=== PATIENT | female | born 1945 | race Caucasian/White ===

== ENCOUNTER 2018-12-02 16:47 | Inpatient (IN) | payer MEDICARE ==
[~2018-12-02] VITALS: Ht 160 cm; Wt 67.3 kg
[2018-12-02 17:26] LABS: BASO # 0.1 x10^3/uL (0.0-0.2); BASO % 1 % (0-3); EOS # 0.4 x10^3/uL (0.0-0.7); EOS % 4 % (0-3); HEMATOCRIT 39.4 % (36.0-47.0); HEMOGLOBIN 12.9 g/dL (12.0-15.5); LYMPH # 1.1 x10^3/uL (1.0-4.8); LYMPH % 11 % (24-48); MEAN CORPUSCULAR HEMOGLOBIN 29 pg (25-35); MEAN CORPUSCULAR HGB CONC 33 g/dL (31-37); MEAN CORPUSCULAR VOLUME 89 fL (79-100); MONO # 0.4 x10^3/uL (0.0-1.1); MONO % 4 % (0-9); NEUT # 8.4 x10^3uL (1.8-7.7); NEUT % 81 % (31-73); PLATELET COUNT 147 x10^3/uL (140-400); RED BLOOD COUNT 4.44 x10^6/uL (3.50-5.40); RED CELL DISTRIBUTION WIDTH 15.7 % (11.5-14.5); WHITE BLOOD COUNT 10.4 x10^3/uL (4.0-11.0)
[2018-12-02] MEDS ORDERED: DEXAMETHASONE SOD PHOS 4 MG/ML VIAL IV ONE (17:30)
[2018-12-02] MEDS ORDERED: ASPIRIN 325 MG TABLET PO ONE (17:30)
[2018-12-02] MEDS ORDERED: IPRATRPIUM/ALBUTEROL 0.5/2.5MG 3 ML NEBU. NEB ONE (17:30)
[2018-12-02 17:40] LABS: CALCIUM 9.6 mg/dL (8.5-10.1); GFR 24.4; POTASSIUM 5.4 mmol/L (3.5-5.1)
--- NOTE | 2018-12-02 17:40 | PHYS DOC ---
Past Medical History Past Medical History: CHF, Hypertension, Other Additional Past Medical Histor: SARCOIDOSIS Past Surgical History: Tonsillectomy, Tubal ligation, Other Additional Past Surgical Histo: KNEE,HAND Additional Information: Nonsmoker Alcohol Use: None Drug Use: None Adult General Chief Complaint Chief Complaint: SHORTNESS OF BREATH HPI HPI 72-year-old female resents via EMS report of progressive shortness of breath which started today. Patient reports she wears home oxygen at approximately 3 L per nasal cannula. Patient reports significant amount of dyspnea which caused her to call EMS. Denies fever or chills. Denies leg swelling or calf tenderness. Denies known trauma. Patient does have history of CHF, high blood pressure, and sarcoidosis. Denies any chest pain. Review of Systems Review of Systems Constitutional: Denies fever or chills [] Eyes: Denies change in visual acuity, redness, or eye pain [] HENT: Reports nasal congestion and sore throat [] Respiratory: Reports cough and shortness of breath [] Cardiovascular: Denies chest pain or palpitations GI: Denies abdominal pain, nausea, vomiting, or diarrhea [] : Denies dysuria or hematuria [] Musculoskeletal: Denies back pain or leg swelling Integument: Denies rash or skin lesions [] Neurologic: Denies headache, focal weakness or sensory changes [] Complete systems were reviewed and found to be within normal limits, except as documented in this note. Current Medications Current Medications Current Medications Medications (Trade) Dose Ordered Sig/Daphney Start Time Stop Time Status Last Admin Dose Admin Albuterol/ Ipratropium (Duoneb) 3 ml 1X ONCE 12/02/18 17:30 12/02/18 17:31 DC 12/02/18 17:20 3 ML Aspirin (Silvia Aspirin) 325 mg 1X ONCE 12/02/18 17:30 12/02/18 17:31 DC 12/02/18 17:48 325 MG Dexamethasone Sodium Phosphate (Decadron) 10 mg 1X ONCE 12/02/18 17:30 12/02/18 17:31 DC 12/02/18 17:48 10 MG Allergies Allergies Physical Exam Physical Exam Constitutional: Well developed, well nourished, no acute distress, non-toxic appearance. [] HENT: Normocephalic, atraumatic, bilateral TMs normal, oropharynx moist, nose normal. [] Eyes: Conjunctiva normal, no discharge. [] Neck: Normal range of motion, no tenderness, supple, no meningeal signs[] Cardiovascular: Heart rate regular rhythm, no murmur [] Lungs & Thorax: Bilateral breath sounds clear to auscultation [] Abdomen: Soft, no tenderness Skin: Warm, dry, no erythema, no rash. Extremities: No tenderness, ROM intact, no edema. [] Neurologic: Alert and oriented X 3, normal motor function, normal sensory function, no focal deficits noted. [] Psychologic: Affect normal, judgement normal, mood normal. [] Current Patient Data Vital Signs Vital Signs Date Time Temp Pulse Resp B/P (MAP) Pulse Ox O2 Delivery O2 Flow Rate FiO2 12/02/18 17:27 78 132/71 (91) 100 Nasal Cannula 8.0 12/02/18 16:47 97.4 24 97.4 Lab Values Laboratory Tests Test 12/02/18 17:10 12/02/18 17:12 White Blood Count 10.4 x10^3/uL (4.0-11.0) Red Blood Count 4.44 x10^6/uL (3.50-5.40) Hemoglobin 12.9 g/dL (12.0-15.5) Hematocrit 39.4 % (36.0-47.0) Mean Corpuscular Volume 89 fL (79-100) Mean Corpuscular Hemoglobin 29 pg (25-35) Mean Corpuscular Hemoglobin Concent 33 g/dL (31-37) Red Cell Distribution Width 15.7 % (11.5-14.5) H Platelet Count 147 x10^3/uL (140-400) Neutrophils (%) (Auto) 81 % (31-73) H Lymphocytes (%) (Auto) 11 % (24-48) L Monocytes (%) (Auto) 4 % (0-9) Eosinophils (%) (Auto) 4 % (0-3) H Basophils (%) (Auto) 1 % (0-3) Neutrophils # (Auto) 8.4 x10^3uL (1.8-7.7) H Lymphocytes # (Auto) 1.1 x10^3/uL (1.0-4.8) Monocytes # (Auto) 0.4 x10^3/uL (0.0-1.1) Eosinophils # (Auto) 0.4 x10^3/uL (0.0-0.7) Basophils # (Auto) 0.1 x10^3/uL (0.0-0.2) D-Dimer (Emilia) 4.24 ug/mlFEU (0.00-0.50) H Sodium Level 131 mmol/L (136-145) L Potassium Level 5.4 mmol/L (3.5-5.1) H Chloride Level 94 mmol/L (98-107) L Carbon Dioxide Level 24 mmol/L (21-32) Anion Gap 13 (6-14) Blood Urea Nitrogen 42 mg/dL (7-20) H Creatinine 2.0 mg/dL (0.6-1.0) H Estimated GFR (Cockcroft-Gault) 24.4 BUN/Creatinine Ratio 21 (6-20) H Glucose Level 176 mg/dL (70-99) H Calcium Level 9.6 mg/dL (8.5-10.1) Magnesium Level 2.4 mg/dL (1.8-2.4) Total Bilirubin 1.0 mg/dL (0.2-1.0) Aspartate Amino Transferase (AST) 30 U/L (15-37) Alanine Aminotransferase (ALT) 21 U/L (14-59) Alkaline Phosphatase 95 U/L (46-116) Creatine Kinase 35 U/L (26-192) Creatine Kinase MB (Mass) 1.2 ng/mL (0.0-3.6) Creatine Kinase MB Relative Index % (0-4) Troponin I Quantitative < 0.017 ng/mL (0.000-0.055) RJ-Ezi-[id number]-Type Natriuretic Peptide 56314 pg/mL (0-124) H Total Protein 8.3 g/dL (6.4-8.2) H Albumin 3.5 g/dL (3.4-5.0) Albumin/Globulin Ratio 0.7 (1.0-1.7) L Urine Collection Type Unknown Urine Color Yellow Urine Clarity Clear Urine pH 7.0 Urine Specific [place] 1.010 Urine Protein Negative mg/dL (NEG-TRACE) Urine Glucose (UA) Negative mg/dL (NEG) Urine Ketones (Stick) Negative mg/dL (NEG) Urine Blood Negative (NEG) Urine Nitrite Negative (NEG) Urine Bilirubin Negative (NEG) Urine Urobilinogen Dipstick 0.2 mg/dL (0.2 mg/dL) Urine Leukocyte Esterase Trace (NEG) Urine RBC Occ /HPF (0-2) Urine WBC 1-4 /HPF (0-4) Urine Squamous Epithelial Cells Few /LPF Urine Transitional Epithelial Cells Occ /LPF Urine Bacteria Few /HPF (0-FEW) Urine Hyaline Casts Occasional /HPF Urine Mucus Slight /LPF Laboratory Tests 12/02/18 17:10 Laboratory Tests 12/02/18 17:10 EKG EKG @ 1659 NSR at 85bpm, NO ST elevation, RBBB, t wave inversions II,III,aVF, V1-V6, No prior EKG per [facility] for comparison. Radiology/Procedures Radiology/Procedures PROCEDURE: CHEST AP ONLY CHEST AP ONLY Clinical Indication: Dyspnea, elevated BNP Comparison: 01/30/2015 CT chest without contrast. Findings: Portable upright frontal view chest was obtained. Cardiomegaly is present.. Diffuse interstitial thickening of the lung johnson noted. Left lateral basilar consolidation is present. No significant pleural effusions. There is no pneumothorax. Osteopenia noted. No acute bone abnormality. IMPRESSION: Diffuse interstitial thickening throughout the lung johnson. This is somewhat more evident as compared to previous CT exam. Left lateral basilar consolidation. Correlate with prior exams. Interval follow-up two-view chest x-ray exam to assess resolution recommended. Electronically signed by: Dev Ponce MD (12/03/2018 8:45 AM) [facility] Course & Med Decision Making Course & Med Decision Making Pertinent Labs and Imaging studies reviewed. (See chart for details) Patient presents with report of shortness of breath times one day. Patient noted on arrival to emergency department to be at 69%. Supplemental O2 required above patient's normal requirement. DuoNeb provided. Labs obtained and posted to chart. Initial troponin within normal limits. BNP significant elevated. Bumex provided. D-dimer elevated. Chest x-ray with findings of possible opacity versus fluid overload. Lung scan ordered and pending. We will hold empiric blood thinners at this time. Aspirin provided. Patient requiring admission for further evaluation and treatment. Discussed with Dr. Glover (hospitalist) who is in agreement with admission. Discussed findings and plan with patient, who acknowledges understanding and agreement. Dragon Disclaimer Dragon Disclaimer This electronic medical record was generated, in whole or in part, using a voice recognition dictation system. Departure Departure Impression: Primary Impression: Dyspnea Additional Impressions: Hypoxia Elevated d-dimer Disposition: ADMITTED INPATIENT Admitting Physician: Lety Glover Condition: GUARDED Scripts Furosemide (LASIX) 80 Mg Tablet 1 TAB PO DAILY for CHF, #10 TAB Prov: SAM JUAN MD 12/03/18 Critical Care Time Critical care time was 30 minutes which includes time at bedside, spent in discussion of patient's care with specialists and/or family members, with interpretation of laboratory and/or radiological studies and is exclusive of procedures. Problem Qualifiers Primary Impression: Dyspnea Dyspnea type: unspecified Qualified Codes: R06.00 - Dyspnea, unspecified MC BOGGS DO December 02, 2018 17:40
[2018-12-02] MEDS ORDERED: ONDANSETRON PF 4 MG/2 ML VIAL. IV PRN (17:45)
[2018-12-02 17:47] LABS: ALBUMIN 3.5 g/dL (3.4-5.0); ALBUMIN/GLOBULIN RATIO 0.7 (1.0-1.7); MAGNESIUM 2.4 mg/dL (1.8-2.4); TOTAL PROTEIN 8.3 g/dL (6.4-8.2)
[2018-12-02 17:54] LABS: CREATINE KINASE 35 U/L (26-192)
--- NOTE | 2018-12-02 18:07 | PDOC1 ---
History and Physical Date of Admission: Date of Admission DATE: 12/02/18 TIME: 18:04 Chief Complaint: Problems: (1) Dyspnea (2) Hypoxia Chief Complain: Shortness of air History of Present Illness: HPI: Patient is a elderly female who presented with shortness of breath and some vague chest discomfort While in the ER she's noted to have an elevated d-dimer Imaging is pending but we were concerned she could've had a PE She rates her symptoms at 10 out 10 She has associated anxiety It's been coming off and on for couple of days She tried taking some home meds but that didn't seem to work Describes her symptoms as irritating I discussed the case with ER physician were going to admit the patient and consult cardiology and pulmonary and nephrology She we noted the patient's d-dimer is high and she has hyponatremia and hyperkalemia and chronic renal failure with elevated BUN/creatinine Past Medical/Surgical History: PMH/PSH: Past Medical History: CHF, Hypertension, Other Additional Past Medical Histor: SARCOIDOSIS Past Surgical History: Tonsillectomy, Tubal ligation, Other Additional Past Surgical Histo: KNEE,HAND Allergies: Allergies: Coded Allergies: Penicillins (Verified Allergy, Unknown, 12/02/18) allopurinol (Verified Allergy, Unknown, 12/02/18) cephalexin (Verified Allergy, Unknown, 12/02/18) Family History: Family History: Coronary disease Social History: Social Hisoty: She doesn't drink smoke or take drugs Current Medications: Current Medications Current Medications Albuterol/ Ipratropium (Duoneb) 3 ml 1X ONCE NEB Last administered on 12/02/18at 17:20; Start 12/02/18 at 17:30; Stop 12/02/18 at 17:31; Status DC Aspirin (Silvia Aspirin) 325 mg 1X ONCE PO Last administered on 12/02/18at 17:48; Start 12/02/18 at 17:30; Stop 12/02/18 at 17:31; Status DC Dexamethasone Sodium Phosphate (Decadron) 10 mg 1X ONCE IV Last administered on 12/02/18at 17:48; Start 12/02/18 at 17:30; Stop 12/02/18 at 17:31; Status DC Ondansetron HCl (Zofran) 4 mg PRN Q8HRS PRN IV NAUSEA/VOMITING; Start 12/02/18 at 17:45; Stop 12/03/18 at 17:44 Albuterol/ Ipratropium (Duoneb) 3 ml RTQID NEB ; Start 12/02/18 at 20:00; Stop 12/03/18 at 19:59 ROS: Review of Systems Review of System REVIEW OF SYSTEMS: GENERAL: Denies weakness SKIN: No bruising, hair changes or rashes. EYES: No blurred, double or loss of vision. NOSE AND THROAT: No history of nosebleeds, hoarseness or sore throat. HEART: No history of palpitations, chest pain or shortness of breath on exertion. LUNGS: She complains of shortness of breath GASTROINTESTINAL: Denies changes in appetite, nausea, vomiting, diarrhea or constipation. GENITOURINARY: No history of frequency, urgency, hesitancy or nocturia. NEUROLOGIC: Denies history of numbness, tingling, tremor or weakness. PSYCHIATRIC: No history of panic, anxiety or depression. ENDOCRINE: No history of heat or cold intolerance, polyuria or polydipsia. EXTREMITIES: Denies muscle weakness, joint pain, pain on walking or stiffness. Physical Exam: Vital Signs: Vital Signs Date Time Temp Pulse Resp B/P (MAP) Pulse Ox O2 Delivery O2 Flow Rate FiO2 12/02/18 17:22 99 Nasal Cannula 9.0 12/02/18 16:47 97.4 89 24 109/72 (84) 97.4 Physcial Exam: GEN.: No apparent distress. Alert and oriented. HEENT: Head is normocephalic, atraumatic NECK: Supple, no JVD LUNGS: Clear to auscultation without rhonchi or wheezing HEART: RRR, S1, S2 present. Peripheral pulses intact ABDOMEN: Soft, nontender. Positive bowel sounds no organomegaly EXTREMITIES: Without any cyanosis, clubbing, or edema. Pedal pulses intact NEUROLOGIC: Normal speech, normal tone. A&O x 3 PSYCHIATRIC: Normal affect, normal mood. Stable SKIN: No ulcerations or rashes VASCULAR: Good capillary refill Labs: Labs: Laboratory Tests Test 12/02/18 17:10 White Blood Count 10.4 x10^3/uL (4.0-11.0) Red Blood Count 4.44 x10^6/uL (3.50-5.40) Hemoglobin 12.9 g/dL (12.0-15.5) Hematocrit 39.4 % (36.0-47.0) Mean Corpuscular Volume 89 fL (79-100) Mean Corpuscular Hemoglobin 29 pg (25-35) Mean Corpuscular Hemoglobin Concent 33 g/dL (31-37) Red Cell Distribution Width 15.7 % (11.5-14.5) Platelet Count 147 x10^3/uL (140-400) Neutrophils (%) (Auto) 81 % (31-73) Lymphocytes (%) (Auto) 11 % (24-48) Monocytes (%) (Auto) 4 % (0-9) Eosinophils (%) (Auto) 4 % (0-3) Basophils (%) (Auto) 1 % (0-3) Neutrophils # (Auto) 8.4 x10^3uL (1.8-7.7) Lymphocytes # (Auto) 1.1 x10^3/uL (1.0-4.8) Monocytes # (Auto) 0.4 x10^3/uL (0.0-1.1) Eosinophils # (Auto) 0.4 x10^3/uL (0.0-0.7) Basophils # (Auto) 0.1 x10^3/uL (0.0-0.2) D-Dimer (Emilia) 4.24 ug/mlFEU (0.00-0.50) Sodium Level 131 mmol/L (136-145) Potassium Level 5.4 mmol/L (3.5-5.1) Chloride Level 94 mmol/L (98-107) Carbon Dioxide Level 24 mmol/L (21-32) Anion Gap 13 (6-14) Blood Urea Nitrogen 42 mg/dL (7-20) Creatinine 2.0 mg/dL (0.6-1.0) Estimated GFR (Cockcroft-Gault) 24.4 BUN/Creatinine Ratio 21 (6-20) Glucose Level 176 mg/dL (70-99) Calcium Level 9.6 mg/dL (8.5-10.1) Magnesium Level 2.4 mg/dL (1.8-2.4) Total Bilirubin 1.0 mg/dL (0.2-1.0) Aspartate Amino Transf (AST/SGOT) 30 U/L (15-37) Alanine Aminotransferase (ALT/SGPT) 21 U/L (14-59) Alkaline Phosphatase 95 U/L (46-116) Creatine Kinase 35 U/L (26-192) Creatine Kinase MB (Mass) 1.2 ng/mL (0.0-3.6) Creatine Kinase MB Relative Index % (0-4) Troponin I Quantitative < 0.017 ng/mL (0.000-0.055) [id number]-Type Natriuretic Peptide 25171 pg/mL (0-124) Total Protein 8.3 g/dL (6.4-8.2) Albumin 3.5 g/dL (3.4-5.0) Albumin/Globulin Ratio 0.7 (1.0-1.7) Laboratory Tests Test 12/02/18 17:10 White Blood Count 10.4 x10^3/uL (4.0-11.0) Red Blood Count 4.44 x10^6/uL (3.50-5.40) Hemoglobin 12.9 g/dL (12.0-15.5) Hematocrit 39.4 % (36.0-47.0) Mean Corpuscular Volume 89 fL (79-100) Mean Corpuscular Hemoglobin 29 pg (25-35) Mean Corpuscular Hemoglobin Concent 33 g/dL (31-37) Red Cell Distribution Width 15.7 % (11.5-14.5) Platelet Count 147 x10^3/uL (140-400) Neutrophils (%) (Auto) 81 % (31-73) Lymphocytes (%) (Auto) 11 % (24-48) Monocytes (%) (Auto) 4 % (0-9) Eosinophils (%) (Auto) 4 % (0-3) Basophils (%) (Auto) 1 % (0-3) Neutrophils # (Auto) 8.4 x10^3uL (1.8-7.7) Lymphocytes # (Auto) 1.1 x10^3/uL (1.0-4.8) Monocytes # (Auto) 0.4 x10^3/uL (0.0-1.1) Eosinophils # (Auto) 0.4 x10^3/uL (0.0-0.7) Basophils # (Auto) 0.1 x10^3/uL (0.0-0.2) D-Dimer (Emilia) 4.24 ug/mlFEU (0.00-0.50) Sodium Level 131 mmol/L (136-145) Potassium Level 5.4 mmol/L (3.5-5.1) Chloride Level 94 mmol/L (98-107) Carbon Dioxide Level 24 mmol/L (21-32) Anion Gap 13 (6-14) Blood Urea Nitrogen 42 mg/dL (7-20) Creatinine 2.0 mg/dL (0.6-1.0) Estimated GFR (Cockcroft-Gault) 24.4 BUN/Creatinine Ratio 21 (6-20) Glucose Level 176 mg/dL (70-99) Calcium Level 9.6 mg/dL (8.5-10.1) Magnesium Level 2.4 mg/dL (1.8-2.4) Total Bilirubin 1.0 mg/dL (0.2-1.0) Aspartate Amino Transf (AST/SGOT) 30 U/L (15-37) Alanine Aminotransferase (ALT/SGPT) 21 U/L (14-59) Alkaline Phosphatase 95 U/L (46-116) Creatine Kinase 35 U/L (26-192) Creatine Kinase MB (Mass) 1.2 ng/mL (0.0-3.6) Creatine Kinase MB Relative Index % (0-4) Troponin I Quantitative < 0.017 ng/mL (0.000-0.055) [id number]-[id number]-Type Natriuretic Peptide 51789 pg/mL (0-124) Total Protein 8.3 g/dL (6.4-8.2) Albumin 3.5 g/dL (3.4-5.0) Albumin/Globulin Ratio 0.7 (1.0-1.7) Images: Images Imaging is pending Assessment/Plan Assessment/Plan Shortness of breath hypoxia chest discomfort elevated d-dimer hyponatremia and hyperkalemia acute on chronic renal failure Plan Cardiac monitoring Chest imaging to rule out PE Consult pulmonary Consult cardiology Serial enzymes Serial EKGs O2 per nasal cannula DVT prophylaxis Home meds if possible Full code Prognosis guarded Total time 32 minutes RADHA JOHN III DO December 02, 2018 18:07
[2018-12-02] MEDS ORDERED: BUMETANIDE 1 MG/4 ML VIAL. IV ONE (18:15)
[2018-12-02 19:10] VITALS: BP 141/82
[2018-12-02] MEDS ORDERED: IPRATRPIUM/ALBUTEROL 0.5/2.5MG 3 ML NEBU. NEB SCH (20:00)
[2018-12-02] MEDS ORDERED: ACETAMINOPHEN 325 MG TABLET. PO PRN (20:00)
[2018-12-02] MEDS ORDERED: FLUO20CA8 PO (20:25)
[2018-12-02] MEDS ORDERED: QUET25TA PO (20:25)
[2018-12-02] MEDS ORDERED: FURO40TA4 PO (20:25)
[2018-12-02] MEDS ORDERED: CARV12.53 PO (20:25)
[2018-12-02] MEDS ORDERED: SPIR25TA5 PO (20:25)
[2018-12-02] MEDS ORDERED: ATOR40TA59 PO (20:25)
[2018-12-02] MEDS ORDERED: CELE-20 PO (20:25)
[2018-12-02] MEDS ORDERED: MUPIROCIN 2 % TOPICAL CREAM 30GM TUBE. TP SCH (21:00)
[2018-12-02] MEDS ORDERED: SMZ/TMP 800/160MG TABLET. PO SCH ×2 (21:00)
[2018-12-02] MEDS: NYSTATIN TOPICAL POWDER 15GM BOTTLE. TP SCH (21:36)
--- NOTE | 2018-12-02 21:49 | RAD ---
Ventilation/perfusion lung scan HISTORY: Dyspnea, elevated d-dimer. COMPARISON: Chest x-ray December 02, 2018. TECHNIQUE: 5.5 mCi technetium 99m macroaggregated albumin intravenous. 27 mCi xenon-133 inhaled. FINDINGS: The oblique and the lateral images demonstrate numerous perfusion defects bilaterally involving the upper and lower lobes, right middle lobe and lingula, unfortunately these defects are not well delineated on the anterior or posterior projections, and only anterior and posterior ventilatory imaging was acquired. Thus it is uncertain if these perfusion defects are matched or mismatched with ventilation. The patient has extensive reticulonodular infiltrates or pulmonary fibrosis throughout the lungs on recent chest x-ray which could correspond to many of these perfusion defects, which at a minimum makes this exam intermediate probability for pulmonary artery emboli using the modified PIOPED criteria. IMPRESSION: Numerous perfusion defects, with uncertain correlate on ventilatory imaging, considered at a minimum intermediate probability for pulmonary artery emboli. See discussion above. Electronically signed by: Wallace Keller MD (12/02/2018 9:47 PM) [facility]
[2018-12-02 23:39] VITALS: BP 103/62
[2018-12-03] MEDS: IPRATRPIUM/ALBUTEROL 0.5/2.5MG 3 ML NEBU. NEB SCH ×5 (01:30→19:08)
[2018-12-03 01:31] LABS: BILIRUBIN,URINE NEGATIVE (NEG); CLARITY,URINE CLEAR; COLOR,URINE YELLOW; NITRITE,URINE NEGATIVE (NEG); PROTEIN,URINE NEGATIVE (NEG-TRACE); UROBILINOGEN,URINE 0.2 mg/dL (0.2 mg/dL)
[2018-12-03 02:28] LABS: BACTERIA,URINE FEW /HPF (0-FEW); HYALINE CASTS, URINE OCCASIONAL /HPF; RBC,URINE OCC /HPF (0-2); SQUAMOUS EPITHELIAL CELL,UR FEW /LPF
[2018-12-03 03:44] VITALS: BP 123/64
--- NOTE | 2018-12-03 06:26 | EKG ---
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
[2018-12-03 07:00] VITALS: BP 140/77
[2018-12-03] MEDS ORDERED: ASPIRIN CHEWABLE 81 MG TABLET. PO SCH (08:00)
[2018-12-03] MEDS: NYSTATIN TOPICAL POWDER 15GM BOTTLE. TP SCH ×2 (08:48→13:50)
[2018-12-03] MEDS: MUPIROCIN 2 % TOPICAL CREAM 30GM TUBE. TP SCH ×2 (08:48→13:50)
--- NOTE | 2018-12-03 08:48 | RAD ---
CHEST AP ONLY Clinical Indication: Dyspnea, elevated BNP Comparison: 01/30/2015 CT chest without contrast. Findings: Portable upright frontal view chest was obtained. Cardiomegaly is present.. Diffuse interstitial thickening of the lung johnson noted. Left lateral basilar consolidation is present. No significant pleural effusions. There is no pneumothorax. Osteopenia noted. No acute bone abnormality. IMPRESSION: Diffuse interstitial thickening throughout the lung johnson. This is somewhat more evident as compared to previous CT exam. Left lateral basilar consolidation. Correlate with prior exams. Interval follow-up two-view chest x-ray exam to assess resolution recommended. Electronically signed by: Dev Ponce MD (12/03/2018 8:45 AM) [facility]
--- NOTE | 2018-12-03 09:08 | PDOC2 ---
CARDIAC CONSULT DATE OF CONSULT Date of Consult DATE: 12/03/18 TIME: 09:02 REASON FOR CONSULT Reason for Consult: CHF Management REFERRING PHYSICIAN Referring Physician: Dr. Glover SOURCE Source: Chart review, Patient HISTORY OF PRESENT ILLNESS HISTORY OF PRESENT ILLNESS This is a 73 yo female who presented secondary to shortness of breath. Has history of sarcoidosis and chronic SOA on O2. Was going to [employer] yesterday for Mother's Day. Was getting, dressed and became significantly short of breath. Was unable to cath her breath so EMS was called. Denies any chest pain, palpitations, dizziness, diaphoresis, or nausea/vomiting. Feels much better today and would like to go home. H/o sarcoidosis, CHF, and CAD being medically managed. Follows with Dr. Barnard with [facility]. Cardiac cath 03/2018- no intervention. PAST MEDICAL HISTORY Past Medical History sarcoidosis Cardiovascular: CAD, CHF, HTN, Hyperlipidemia Pulmonary: Other (chronic O2) CENTRAL NERVOUS SYSTEM: Other (no pertinent hx) GI: GERD Psych: Anxiety, Depression Musculoskeletal: Osteoarthritis Rheumatologic: No pertinent hx Infectious disease: No pertinent hx ENT: No pertinent hx Renal/: No pertinent hx Endocrine: No pertinent hx Dermatology: No pertinent hx PAST SURGICAL HISTORY Past Surgical History: Tubal Ligation, Tonsillectomy, Hysterectomy, Other (carpal tunnel) FAMILY HISTORY Family History: Heart Disease, Hypertension SOCIAL HISTORY Smoke: No ALCOHOL: none Drugs: None Lives: Alone CURRENT MEDICATIONS CURRENT MEDICATIONS Current Medications Medications (Trade) Dose Ordered Sig/Daphney Route PRN Reason Start Time Stop Time Status Last Admin Dose Admin Albuterol/ Ipratropium (Duoneb) 3 ml 1X ONCE NEB 12/02/18 17:30 12/02/18 17:31 DC 12/02/18 17:20 Aspirin (Silvia Aspirin) 325 mg 1X ONCE PO 12/02/18 17:30 12/02/18 17:31 DC 12/02/18 17:48 Dexamethasone Sodium Phosphate (Decadron) 10 mg 1X ONCE IV 12/02/18 17:30 12/02/18 17:31 DC 12/02/18 17:48 Bumetanide (Bumex) 0.5 mg 1X ONCE IV 12/02/18 18:15 12/02/18 18:16 DC 12/02/18 18:21 Aspirin (Children'S Aspirin) 81 mg DAILYWBKFT PO 12/03/18 08:00 12/03/18 08:47 Nystatin (Nystop) 1 zakiya TID TP 12/02/18 21:00 12/03/18 08:48 Albuterol/ Ipratropium (Duoneb) 3 ml Q6HRS NEB 12/03/18 00:00 12/03/18 08:03 Acetaminophen (Tylenol) 650 mg PRN Q6HRS PRN PO Pain/Fever 12/02/18 20:00 12/03/18 00:17 Trimethoprim/ Sulfamethoxazole (Bactrim Ds) 1 tab QHS PO 12/02/18 21:00 12/02/18 21:09 ALLERGIES ALLERGIES: Coded Allergies: Penicillins (Verified Allergy, Intermediate, 12/03/18) allopurinol (Verified Allergy, Intermediate, 12/03/18) cephalexin (Verified Allergy, Intermediate, 12/03/18) ROS Review of System 14 point ROS conducted with pertinent positives noted above in HPI. PHYSICAL EXAM General: Alert, Oriented X3, Cooperative, No acute distress HEENT: Atraumatic, Mucous membr. moist/pink Lungs: Other (diminished bases) Heart: Regular rate, Normal S1, Normal S2 Abdomen: No tenderness Extremities: No edema, Normal pulses Skin: No significant lesion Neuro: Normal speech, Sensation intact Psych/Mental Status: Mental status NL, Mood NL MUSCULOSKELETAL: Osteoarthritic changes both hands VITALS VITALS Vital Signs Date Time Temp Pulse Resp B/P (MAP) Pulse Ox O2 Delivery O2 Flow Rate FiO2 12/03/18 08:05 91 Nasal Cannula 3.5 12/03/18 07:00 97.8 77 20 140/77 (98) 97.8 LABS Lab: Laboratory Tests Test 12/02/18 17:10 12/02/18 17:12 12/02/18 20:55 12/02/18 23:35 White Blood Count 10.4 x10^3/uL (4.0-11.0) Red Blood Count 4.44 x10^6/uL (3.50-5.40) Hemoglobin 12.9 g/dL (12.0-15.5) Hematocrit 39.4 % (36.0-47.0) Mean Corpuscular Volume 89 fL (79-100) Mean Corpuscular Hemoglobin 29 pg (25-35) Mean Corpuscular Hemoglobin Concent 33 g/dL (31-37) Red Cell Distribution Width 15.7 % (11.5-14.5) Platelet Count 147 x10^3/uL (140-400) Neutrophils (%) (Auto) 81 % (31-73) Lymphocytes (%) (Auto) 11 % (24-48) Monocytes (%) (Auto) 4 % (0-9) Eosinophils (%) (Auto) 4 % (0-3) Basophils (%) (Auto) 1 % (0-3) Neutrophils # (Auto) 8.4 x10^3uL (1.8-7.7) Lymphocytes # (Auto) 1.1 x10^3/uL (1.0-4.8) Monocytes # (Auto) 0.4 x10^3/uL (0.0-1.1) Eosinophils # (Auto) 0.4 x10^3/uL (0.0-0.7) Basophils # (Auto) 0.1 x10^3/uL (0.0-0.2) D-Dimer (Emilia) 4.24 ug/mlFEU (0.00-0.50) Sodium Level 131 mmol/L (136-145) Potassium Level 5.4 mmol/L (3.5-5.1) Chloride Level 94 mmol/L (98-107) Carbon Dioxide Level 24 mmol/L (21-32) Anion Gap 13 (6-14) Blood Urea Nitrogen 42 mg/dL (7-20) Creatinine 2.0 mg/dL (0.6-1.0) Estimated GFR (Cockcroft-Gault) 24.4 BUN/Creatinine Ratio 21 (6-20) Glucose Level 176 mg/dL (70-99) Calcium Level 9.6 mg/dL (8.5-10.1) Magnesium Level 2.4 mg/dL (1.8-2.4) Total Bilirubin 1.0 mg/dL (0.2-1.0) Aspartate Amino Transf (AST/SGOT) 30 U/L (15-37) Alanine Aminotransferase (ALT/SGPT) 21 U/L (14-59) Alkaline Phosphatase 95 U/L (46-116) Creatine Kinase 35 U/L (26-192) Creatine Kinase MB (Mass) 1.2 ng/mL (0.0-3.6) Creatine Kinase MB Relative Index % (0-4) Troponin I Quantitative < 0.017 ng/mL (0.000-0.055) 0.072 ng/mL (0.000-0.055) 0.084 ng/mL (0.000-0.055) JF-Kcv-R-Type Natriuretic Peptide 20262 pg/mL (0-124) Total Protein 8.3 g/dL (6.4-8.2) Albumin 3.5 g/dL (3.4-5.0) Albumin/Globulin Ratio 0.7 (1.0-1.7) Urine Collection Type Unknown Urine Color Yellow Urine Clarity Clear Urine pH 7.0 Urine Specific [place] 1.010 Urine Protein Negative mg/dL (NEG-TRACE) Urine Glucose (UA) Negative mg/dL (NEG) Urine Ketones (Stick) Negative mg/dL (NEG) Urine Blood Negative (NEG) Urine Nitrite Negative (NEG) Urine Bilirubin Negative (NEG) Urine Urobilinogen Dipstick 0.2 mg/dL (0.2 mg/dL) Urine Leukocyte Esterase Trace (NEG) Urine RBC Occ /HPF (0-2) Urine WBC 1-4 /HPF (0-4) Urine Squamous Epithelial Cells Few /LPF Urine Transitional Epithelial Cells Occ /LPF Urine Bacteria Few /HPF (0-FEW) Urine Hyaline Casts Occasional /HPF Urine Mucus Slight /LPF ASSESSMENT/PLAN ASSESSMENT/PLAN 1. Acute on chronic respiratory failure 2. Sarcoidosis 3. Elevated d-dimer; VQ scan intermediate probability although clinical suspicion low. 4. Chronic diastolic HF; compensated 5. Mild troponin elevation; highest 0.08. Most probably type II, demand ischemia in the setting of JONE 6. CAD; no stents. Being medically managed. CAth 03/2018 without intervention. Follow[address] with Dr. Barnard with [facility]. 7. JONE with hyperkalemia. Nephrology consulted. 8. Hypertension; controlled 9. Hyperlipidemia Recommendations Echo to assess LV systolic function Lipid panel- statin if indicated Continue ASA, BB Hold Lasix with JONE Follow up with transition assistant, Dr. Barnard with [facility] Follow renal recs Supportive care EDWARDAMANDA BROOKE December 03, 2018 09:08
[2018-12-03] MEDS ORDERED: FURO80TA72 PO (10:22)
[2018-12-03 11:00] VITALS: BP 147/84
--- NOTE | 2018-12-03 11:59 | PDOC2 ---
CONSULT Date of Consult Date of Consult DATE: 12/03/18 TIME: 11:59 Reason for Consult Reason for Consult: CRI Source Source: Chart review, Patient History of Present Illness Reason for Visit: Patient is a 73 yo CF female who presented with shortness of breath and some vague chest discomfort While in the ER she's noted to have an elevated d-dimer Imaging is pending but we were concerned she could've had a PE She reports she has frequent UTI's and she responds only to Bactrim . She recently finished Bactrim and was restarted again She states she has never been told by her PCP that she has any Kidney Problems and her labs have been stable Past Medical History Cardiovascular: CHF, HTN, Hyperlipidemia Psych: Anxiety Past Surgical History Past Surgical History: Tubal Ligation, Tonsillectomy Current Problem List Problem List Problems Medical Problems: (1) Dyspnea Status: Acute (2) Hypoxia Status: Acute Current Medications Current Medications Current Medications Albuterol/ Ipratropium (Duoneb) 3 ml 1X ONCE NEB Last administered on 12/02/18at 17:20; Start 12/02/18 at 17:30; Stop 12/02/18 at 17:31; Status DC Aspirin (Silvia Aspirin) 325 mg 1X ONCE PO Last administered on 12/02/18at 17:48; Start 12/02/18 at 17:30; Stop 12/02/18 at 17:31; Status DC Dexamethasone Sodium Phosphate (Decadron) 10 mg 1X ONCE IV Last administered on 12/02/18at 17:48; Start 12/02/18 at 17:30; Stop 12/02/18 at 17:31; Status DC Ondansetron HCl (Zofran) 4 mg PRN Q8HRS PRN IV NAUSEA/VOMITING; Start 12/02/18 at 17:45; Stop 12/03/18 at 17:44 Albuterol/ Ipratropium (Duoneb) 3 ml RTQID NEB ; Start 12/02/18 at 20:00; Stop 12/02/18 at 20:30; Status DC Bumetanide (Bumex) 0.5 mg 1X ONCE IV Last administered on 12/02/18at 18:21; Start 12/02/18 at 18:15; Stop 12/02/18 at 18:16; Status DC Aspirin (Children'S Aspirin) 81 mg DAILYWBKFT PO Last administered on 12/03/18at 08:47; Start 12/03/18 at 08:00 Nystatin (Nystop) 1 zakiya TID TP Last administered on 12/03/18at 08:48; Start 12/02/18 at 21:00 Albuterol/ Ipratropium (Duoneb) 3 ml Q6HRS NEB Last administered on 12/03/18at 08:03; Start 12/03/18 at 00:00 Mupirocin (Bactroban) 1 zakiya TID TP ; Start 12/02/18 at 21:00; Stop 12/02/18 at 21:00; Status DC Acetaminophen (Tylenol) 650 mg PRN Q6HRS PRN PO Pain/Fever Last administered on 12/03/18at 00:17; Start 12/02/18 at 20:00 Trimethoprim/ Sulfamethoxazole (Bactrim Ds) 0.5 tab BID PO ; Start 12/02/18 at 21:00; Status Cancel Trimethoprim/ Sulfamethoxazole (Bactrim Ds) 1 tab QHS PO Last administered on 12/02/18at 21:09; Start 12/02/18 at 21:00 Mupirocin (Bactroban) 1 zakiya TID TP ; Start 12/03/18 at 09:00; Stop 12/09/18 at 08:59 Active Scripts Active Lasix (Furosemide) 80 Mg Tablet 1 Tab PO DAILY Reported Celecoxib 200 Mg Capsule 200 Mg PO DAILY Spironolactone 25 Mg Tablet 25 Mg PO DAILY Quetiapine Fumarate 25 Mg Tablet 25 Mg PO TID Fluoxetine Hcl 20 Mg Capsule 20 Mg PO DAILY Carvedilol 12.5 Mg Tablet 12.5 Mg PO BID Atorvastatin Calcium 40 Mg Tablet 40 Mg PO DAILY Allergies Allergies: Coded Allergies: Penicillins (Verified Allergy, Intermediate, 12/03/18) allopurinol (Verified Allergy, Intermediate, 12/03/18) cephalexin (Verified Allergy, Intermediate, 12/03/18) ROS Review of System As per HPI Physical Exam Physical Exam GEN: nad HEEN: OM moist NECK:Supple CVS: RRR RESP: [No Rales, No Rhonchi,No Acc. Muscle Use GI: BS + ve, NO Bruit, Non Tender, Non Distended : No CVA tenderness, No Suprapubic Tenderness, No Heard NEURO- Grossly normal SKIN No rash Vital Signs Vital Signs Date Time Temp Pulse Resp B/P (MAP) Pulse Ox O2 Delivery O2 Flow Rate FiO2 12/03/18 11:00 97.9 93 18 147/84 (105) 94 Nasal Cannula 4.0 97.9 Assessment & Plan CKD Stage 3 - Per she is not aware Dr Lester reviewed records from PCP (Dr. Castro) - Pt at baseline renal function Also prescribed Bactrim Multiple times for UTI by PCP Currently was on Bactrim as well Long Hx of NSAID use - Aleve/or Ibuprofen QD UA unremarkable Monitor Avoid NSAID's Hyperkalemia- On bactrim High K intake in diet CHF, acute on chronic Cardiology following On lasix 80 mg pO qd at home Defer to cardiology Sarcoidosis hyponatremia- Suspect sec to CHF If Dced recommend follow up with Renal (Routine) Labs Labs Laboratory Tests Test 12/02/18 17:10 12/02/18 17:12 12/02/18 20:55 12/02/18 23:35 White Blood Count 10.4 x10^3/uL (4.0-11.0) Red Blood Count 4.44 x10^6/uL (3.50-5.40) Hemoglobin 12.9 g/dL (12.0-15.5) Hematocrit 39.4 % (36.0-47.0) Mean Corpuscular Volume 89 fL (79-100) Mean Corpuscular Hemoglobin 29 pg (25-35) Mean Corpuscular Hemoglobin Concent 33 g/dL (31-37) Red Cell Distribution Width 15.7 % (11.5-14.5) Platelet Count 147 x10^3/uL (140-400) Neutrophils (%) (Auto) 81 % (31-73) Lymphocytes (%) (Auto) 11 % (24-48) Monocytes (%) (Auto) 4 % (0-9) Eosinophils (%) (Auto) 4 % (0-3) Basophils (%) (Auto) 1 % (0-3) Neutrophils # (Auto) 8.4 x10^3uL (1.8-7.7) Lymphocytes # (Auto) 1.1 x10^3/uL (1.0-4.8) Monocytes # (Auto) 0.4 x10^3/uL (0.0-1.1) Eosinophils # (Auto) 0.4 x10^3/uL (0.0-0.7) Basophils # (Auto) 0.1 x10^3/uL (0.0-0.2) D-Dimer (Emilia) 4.24 ug/mlFEU (0.00-0.50) Sodium Level 131 mmol/L (136-145) Potassium Level 5.4 mmol/L (3.5-5.1) Chloride Level 94 mmol/L (98-107) Carbon Dioxide Level 24 mmol/L (21-32) Anion Gap 13 (6-14) Blood Urea Nitrogen 42 mg/dL (7-20) Creatinine 2.0 mg/dL (0.6-1.0) Estimated GFR (Cockcroft-Gault) 24.4 BUN/Creatinine Ratio 21 (6-20) Glucose Level 176 mg/dL (70-99) Calcium Level 9.6 mg/dL (8.5-10.1) Magnesium Level 2.4 mg/dL (1.8-2.4) Total Bilirubin 1.0 mg/dL (0.2-1.0) Aspartate Amino Transf (AST/SGOT) 30 U/L (15-37) Alanine Aminotransferase (ALT/SGPT) 21 U/L (14-59) Alkaline Phosphatase 95 U/L (46-116) Creatine Kinase 35 U/L (26-192) Creatine Kinase MB (Mass) 1.2 ng/mL (0.0-3.6) Creatine Kinase MB Relative Index % (0-4) Troponin I Quantitative < 0.017 ng/mL (0.000-0.055) 0.072 ng/mL (0.000-0.055) 0.084 ng/mL (0.000-0.055) WB-Izt-H-Type Natriuretic Peptide 14391 pg/mL (0-124) Total Protein 8.3 g/dL (6.4-8.2) Albumin 3.5 g/dL (3.4-5.0) Albumin/Globulin Ratio 0.7 (1.0-1.7) Urine Collection Type Unknown Urine Color Yellow Urine Clarity Clear Urine pH 7.0 Urine Specific [place] 1.010 Urine Protein Negative mg/dL (NEG-TRACE) Urine Glucose (UA) Negative mg/dL (NEG) Urine Ketones (Stick) Negative mg/dL (NEG) Urine Blood Negative (NEG) Urine Nitrite Negative (NEG) Urine Bilirubin Negative (NEG) Urine Urobilinogen Dipstick 0.2 mg/dL (0.2 mg/dL) Urine Leukocyte Esterase Trace (NEG) Urine RBC Occ /HPF (0-2) Urine WBC 1-4 /HPF (0-4) Urine Squamous Epithelial Cells Few /LPF Urine Transitional Epithelial Cells Occ /LPF Urine Bacteria Few /HPF (0-FEW) Urine Hyaline Casts Occasional /HPF Urine Mucus Slight /LPF Laboratory Tests Test 12/02/18 17:10 12/02/18 17:12 12/02/18 20:55 12/02/18 23:35 White Blood Count 10.4 x10^3/uL (4.0-11.0) Red Blood Count 4.44 x10^6/uL (3.50-5.40) Hemoglobin 12.9 g/dL (12.0-15.5) Hematocrit 39.4 % (36.0-47.0) Mean Corpuscular Volume 89 fL (79-100) Mean Corpuscular Hemoglobin 29 pg (25-35) Mean Corpuscular Hemoglobin Concent 33 g/dL (31-37) Red Cell Distribution Width 15.7 % (11.5-14.5) Platelet Count 147 x10^3/uL (140-400) Neutrophils (%) (Auto) 81 % (31-73) Lymphocytes (%) (Auto) 11 % (24-48) Monocytes (%) (Auto) 4 % (0-9) Eosinophils (%) (Auto) 4 % (0-3) Basophils (%) (Auto) 1 % (0-3) Neutrophils # (Auto) 8.4 x10^3uL (1.8-7.7) Lymphocytes # (Auto) 1.1 x10^3/uL (1.0-4.8) Monocytes # (Auto) 0.4 x10^3/uL (0.0-1.1) Eosinophils # (Auto) 0.4 x10^3/uL (0.0-0.7) Basophils # (Auto) 0.1 x10^3/uL (0.0-0.2) D-Dimer (Emilia) 4.24 ug/mlFEU (0.00-0.50) Sodium Level 131 mmol/L (136-145) Potassium Level 5.4 mmol/L (3.5-5.1) Chloride Level 94 mmol/L (98-107) Carbon Dioxide Level 24 mmol/L (21-32) Anion Gap 13 (6-14) Blood Urea Nitrogen 42 mg/dL (7-20) Creatinine 2.0 mg/dL (0.6-1.0) Estimated GFR (Cockcroft-Gault) 24.4 BUN/Creatinine Ratio 21 (6-20) Glucose Level 176 mg/dL (70-99) Calcium Level 9.6 mg/dL (8.5-10.1) Magnesium Level 2.4 mg/dL (1.8-2.4) Total Bilirubin 1.0 mg/dL (0.2-1.0) Aspartate Amino Transf (AST/SGOT) 30 U/L (15-37) Alanine Aminotransferase (ALT/SGPT) 21 U/L (14-59) Alkaline Phosphatase 95 U/L (46-116) Creatine Kinase 35 U/L (26-192) Creatine Kinase MB (Mass) 1.2 ng/mL (0.0-3.6) Creatine Kinase MB Relative Index % (0-4) Troponin I Quantitative < 0.017 ng/mL (0.000-0.055) 0.072 ng/mL (0.000-0.055) 0.084 ng/mL (0.000-0.055) LG-Hdy-V-Type Natriuretic Peptide 64328 pg/mL (0-124) Total Protein 8.3 g/dL (6.4-8.2) Albumin 3.5 g/dL (3.4-5.0) Albumin/Globulin Ratio 0.7 (1.0-1.7) Urine Collection Type Unknown Urine Color Yellow Urine Clarity Clear Urine pH 7.0 Urine Specific [place] 1.010 Urine Protein Negative mg/dL (NEG-TRACE) Urine Glucose (UA) Negative mg/dL (NEG) Urine Ketones (Stick) Negative mg/dL (NEG) Urine Blood Negative (NEG) Urine Nitrite Negative (NEG) Urine Bilirubin Negative (NEG) Urine Urobilinogen Dipstick 0.2 mg/dL (0.2 mg/dL) Urine Leukocyte Esterase Trace (NEG) Urine RBC Occ /HPF (0-2) Urine WBC 1-4 /HPF (0-4) Urine Squamous Epithelial Cells Few /LPF Urine Transitional Epithelial Cells Occ /LPF Urine Bacteria Few /HPF (0-FEW) Urine Hyaline Casts Occasional /HPF Urine Mucus Slight /LPF Review All relevant outside records, renal labs, imaging studies, telemetry/EKG's were reviewed. SARWAT ZHOU MD December 03, 2018 11:59
[2018-12-03] MEDS ORDERED: FUROSEMIDE 80 MG TABLET. PO SCH (14:00)
[2018-12-03] MEDS ORDERED: SPIRONOLACTONE 25 MG TABLET PO SCH (14:00)
[2018-12-03] MEDS ORDERED: FLUoxetine HCL 20 MG CAPSULE PO SCH (14:00)
[2018-12-03] MEDS ORDERED: QUEtiapine 25 MG TABLET. PO SCH (14:00)
[2018-12-03] MEDS ORDERED: CELECOXIB 100 MG CAPSULE. PO SCH (14:00)
[2018-12-03 14:46] VITALS: BP 122/52
--- NOTE | 2018-12-03 14:50 | PDOC ---
PROGRESS NOTES Chief Complaint Chief Complaint Shortness of breath acute on chronic hypoxia CHF, acute on chronic sarcoidosis hyponatremia and hyperkalemia chronic renal failure History of Present Illness History of Present Illness increase the lasix, cont aldatone, patient reports recent cardiac cath with Dr. Barnard at [facility], will follow with him, he had planned on stents after having her on aldactone for a time. potassium high, wlll increase home lasix dose, discussed with renal and CV consujtl I called Dr. Anderson, he would prefer the patient stay in the hospital, she wants badly to DC, and reports no pain and feels at her baseline, had recent cath, and wants to f/u at [facility] C Vitals Vitals Vital Signs Date Time Temp Pulse Resp B/P (MAP) Pulse Ox O2 Delivery O2 Flow Rate FiO2 12/03/18 12:30 93 Nasal Cannula 3.5 12/03/18 11:00 97.9 93 18 147/84 (105) 97.9 Physical Exam General: Alert, Oriented X3, Cooperative Heart: Regular rate, Normal S1, Normal S2 Lungs: Clear Abdomen: Normal bowel sounds Extremities: No clubbing Skin: No rashes Labs LABS Laboratory Tests Test 12/02/18 17:10 12/02/18 17:12 12/02/18 20:55 12/02/18 23:35 White Blood Count 10.4 x10^3/uL (4.0-11.0) Red Blood Count 4.44 x10^6/uL (3.50-5.40) Hemoglobin 12.9 g/dL (12.0-15.5) Hematocrit 39.4 % (36.0-47.0) Mean Corpuscular Volume 89 fL (79-100) Mean Corpuscular Hemoglobin 29 pg (25-35) Mean Corpuscular Hemoglobin Concent 33 g/dL (31-37) Red Cell Distribution Width 15.7 % (11.5-14.5) Platelet Count 147 x10^3/uL (140-400) Neutrophils (%) (Auto) 81 % (31-73) Lymphocytes (%) (Auto) 11 % (24-48) Monocytes (%) (Auto) 4 % (0-9) Eosinophils (%) (Auto) 4 % (0-3) Basophils (%) (Auto) 1 % (0-3) Neutrophils # (Auto) 8.4 x10^3uL (1.8-7.7) Lymphocytes # (Auto) 1.1 x10^3/uL (1.0-4.8) Monocytes # (Auto) 0.4 x10^3/uL (0.0-1.1) Eosinophils # (Auto) 0.4 x10^3/uL (0.0-0.7) Basophils # (Auto) 0.1 x10^3/uL (0.0-0.2) D-Dimer (Emilia) 4.24 ug/mlFEU (0.00-0.50) Sodium Level 131 mmol/L (136-145) Potassium Level 5.4 mmol/L (3.5-5.1) Chloride Level 94 mmol/L (98-107) Carbon Dioxide Level 24 mmol/L (21-32) Anion Gap 13 (6-14) Blood Urea Nitrogen 42 mg/dL (7-20) Creatinine 2.0 mg/dL (0.6-1.0) Estimated GFR (Cockcroft-Gault) 24.4 BUN/Creatinine Ratio 21 (6-20) Glucose Level 176 mg/dL (70-99) Calcium Level 9.6 mg/dL (8.5-10.1) Magnesium Level 2.4 mg/dL (1.8-2.4) Total Bilirubin 1.0 mg/dL (0.2-1.0) Aspartate Amino Transf (AST/SGOT) 30 U/L (15-37) Alanine Aminotransferase (ALT/SGPT) 21 U/L (14-59) Alkaline Phosphatase 95 U/L (46-116) Creatine Kinase 35 U/L (26-192) Creatine Kinase MB (Mass) 1.2 ng/mL (0.0-3.6) Creatine Kinase MB Relative Index % (0-4) Troponin I Quantitative < 0.017 ng/mL (0.000-0.055) 0.072 ng/mL (0.000-0.055) 0.084 ng/mL (0.000-0.055) NR-Enk-V-Type Natriuretic Peptide 83050 pg/mL (0-124) Total Protein 8.3 g/dL (6.4-8.2) Albumin 3.5 g/dL (3.4-5.0) Albumin/Globulin Ratio 0.7 (1.0-1.7) Urine Collection Type Unknown Urine Color Yellow Urine Clarity Clear Urine pH 7.0 Urine Specific Richardson 1.010 Urine Protein Negative mg/dL (NEG-TRACE) Urine Glucose (UA) Negative mg/dL (NEG) Urine Ketones (Stick) Negative mg/dL (NEG) Urine Blood Negative (NEG) Urine Nitrite Negative (NEG) Urine Bilirubin Negative (NEG) Urine Urobilinogen Dipstick 0.2 mg/dL (0.2 mg/dL) Urine Leukocyte Esterase Trace (NEG) Urine RBC Occ /HPF (0-2) Urine WBC 1-4 /HPF (0-4) Urine Squamous Epithelial Cells Few /LPF Urine Transitional Epithelial Cells Occ /LPF Urine Bacteria Few /HPF (0-FEW) Urine Hyaline Casts Occasional /HPF Urine Mucus Slight /LPF Assessment and Plan Assessmemt and Plan Problems Medical Problems: (1) Dyspnea Status: Acute (2) Hypoxia Status: Acute Comment Review of Relevant I have reviewed the following items richard (where applicable) has been applied. Labs Laboratory Tests Test 12/02/18 17:10 12/02/18 17:12 12/02/18 20:55 12/02/18 23:35 White Blood Count 10.4 x10^3/uL (4.0-11.0) Red Blood Count 4.44 x10^6/uL (3.50-5.40) Hemoglobin 12.9 g/dL (12.0-15.5) Hematocrit 39.4 % (36.0-47.0) Mean Corpuscular Volume 89 fL (79-100) Mean Corpuscular Hemoglobin 29 pg (25-35) Mean Corpuscular Hemoglobin Concent 33 g/dL (31-37) Red Cell Distribution Width 15.7 % (11.5-14.5) Platelet Count 147 x10^3/uL (140-400) Neutrophils (%) (Auto) 81 % (31-73) Lymphocytes (%) (Auto) 11 % (24-48) Monocytes (%) (Auto) 4 % (0-9) Eosinophils (%) (Auto) 4 % (0-3) Basophils (%) (Auto) 1 % (0-3) Neutrophils # (Auto) 8.4 x10^3uL (1.8-7.7) Lymphocytes # (Auto) 1.1 x10^3/uL (1.0-4.8) Monocytes # (Auto) 0.4 x10^3/uL (0.0-1.1) Eosinophils # (Auto) 0.4 x10^3/uL (0.0-0.7) Basophils # (Auto) 0.1 x10^3/uL (0.0-0.2) D-Dimer (Emilia) 4.24 ug/mlFEU (0.00-0.50) Sodium Level 131 mmol/L (136-145) Potassium Level 5.4 mmol/L (3.5-5.1) Chloride Level 94 mmol/L (98-107) Carbon Dioxide Level 24 mmol/L (21-32) Anion Gap 13 (6-14) Blood Urea Nitrogen 42 mg/dL (7-20) Creatinine 2.0 mg/dL (0.6-1.0) Estimated GFR (Cockcroft-Gault) 24.4 BUN/Creatinine Ratio 21 (6-20) Glucose Level 176 mg/dL (70-99) Calcium Level 9.6 mg/dL (8.5-10.1) Magnesium Level 2.4 mg/dL (1.8-2.4) Total Bilirubin 1.0 mg/dL (0.2-1.0) Aspartate Amino Transf (AST/SGOT) 30 U/L (15-37) Alanine Aminotransferase (ALT/SGPT) 21 U/L (14-59) Alkaline Phosphatase 95 U/L (46-116) Creatine Kinase 35 U/L (26-192) Creatine Kinase MB (Mass) 1.2 ng/mL (0.0-3.6) Creatine Kinase MB Relative Index % (0-4) Troponin I Quantitative < 0.017 ng/mL (0.000-0.055) 0.072 ng/mL (0.000-0.055) 0.084 ng/mL (0.000-0.055) BS-Est-R-Type Natriuretic Peptide 15412 pg/mL (0-124) Total Protein 8.3 g/dL (6.4-8.2) Albumin 3.5 g/dL (3.4-5.0) Albumin/Globulin Ratio 0.7 (1.0-1.7) Urine Collection Type Unknown Urine Color Yellow Urine Clarity Clear Urine pH 7.0 Urine Specific Richardson 1.010 Urine Protein Negative mg/dL (NEG-TRACE) Urine Glucose (UA) Negative mg/dL (NEG) Urine Ketones (Stick) Negative mg/dL (NEG) Urine Blood Negative (NEG) Urine Nitrite Negative (NEG) Urine Bilirubin Negative (NEG) Urine Urobilinogen Dipstick 0.2 mg/dL (0.2 mg/dL) Urine Leukocyte Esterase Trace (NEG) Urine RBC Occ /HPF (0-2) Urine WBC 1-4 /HPF (0-4) Urine Squamous Epithelial Cells Few /LPF Urine Transitional Epithelial Cells Occ /LPF Urine Bacteria Few /HPF (0-FEW) Urine Hyaline Casts Occasional /HPF Urine Mucus Slight /LPF Laboratory Tests Test 12/02/18 17:10 12/02/18 17:12 12/02/18 20:55 12/02/18 23:35 White Blood Count 10.4 x10^3/uL (4.0-11.0) Red Blood Count 4.44 x10^6/uL (3.50-5.40) Hemoglobin 12.9 g/dL (12.0-15.5) Hematocrit 39.4 % (36.0-47.0) Mean Corpuscular Volume 89 fL (79-100) Mean Corpuscular Hemoglobin 29 pg (25-35) Mean Corpuscular Hemoglobin Concent 33 g/dL (31-37) Red Cell Distribution Width 15.7 % (11.5-14.5) Platelet Count 147 x10^3/uL (140-400) Neutrophils (%) (Auto) 81 % (31-73) Lymphocytes (%) (Auto) 11 % (24-48) Monocytes (%) (Auto) 4 % (0-9) Eosinophils (%) (Auto) 4 % (0-3) Basophils (%) (Auto) 1 % (0-3) Neutrophils # (Auto) 8.4 x10^3uL (1.8-7.7) Lymphocytes # (Auto) 1.1 x10^3/uL (1.0-4.8) Monocytes # (Auto) 0.4 x10^3/uL (0.0-1.1) Eosinophils # (Auto) 0.4 x10^3/uL (0.0-0.7) Basophils # (Auto) 0.1 x10^3/uL (0.0-0.2) D-Dimer (Emilia) 4.24 ug/mlFEU (0.00-0.50) Sodium Level 131 mmol/L (136-145) Potassium Level 5.4 mmol/L (3.5-5.1) Chloride Level 94 mmol/L (98-107) Carbon Dioxide Level 24 mmol/L (21-32) Anion Gap 13 (6-14) Blood Urea Nitrogen 42 mg/dL (7-20) Creatinine 2.0 mg/dL (0.6-1.0) Estimated GFR (Cockcroft-Gault) 24.4 BUN/Creatinine Ratio 21 (6-20) Glucose Level 176 mg/dL (70-99) Calcium Level 9.6 mg/dL (8.5-10.1) Magnesium Level 2.4 mg/dL (1.8-2.4) Total Bilirubin 1.0 mg/dL (0.2-1.0) Aspartate Amino Transf (AST/SGOT) 30 U/L (15-37) Alanine Aminotransferase (ALT/SGPT) 21 U/L (14-59) Alkaline Phosphatase 95 U/L (46-116) Creatine Kinase 35 U/L (26-192) Creatine Kinase MB (Mass) 1.2 ng/mL (0.0-3.6) Creatine Kinase MB Relative Index % (0-4) Troponin I Quantitative < 0.017 ng/mL (0.000-0.055) 0.072 ng/mL (0.000-0.055) 0.084 ng/mL (0.000-0.055) ZL-Aus-H-Type Natriuretic Peptide 77739 pg/mL (0-124) Total Protein 8.3 g/dL (6.4-8.2) Albumin 3.5 g/dL (3.4-5.0) Albumin/Globulin Ratio 0.7 (1.0-1.7) Urine Collection Type Unknown Urine Color Yellow Urine Clarity Clear Urine pH 7.0 Urine Specific Richardson 1.010 Urine Protein Negative mg/dL (NEG-TRACE) Urine Glucose (UA) Negative mg/dL (NEG) Urine Ketones (Stick) Negative mg/dL (NEG) Urine Blood Negative (NEG) Urine Nitrite Negative (NEG) Urine Bilirubin Negative (NEG) Urine Urobilinogen Dipstick 0.2 mg/dL (0.2 mg/dL) Urine Leukocyte Esterase Trace (NEG) Urine RBC Occ /HPF (0-2) Urine WBC 1-4 /HPF (0-4) Urine Squamous Epithelial Cells Few /LPF Urine Transitional Epithelial Cells Occ /LPF Urine Bacteria Few /HPF (0-FEW) Urine Hyaline Casts Occasional /HPF Urine Mucus Slight /LPF Medications Current Medications Albuterol/ Ipratropium (Duoneb) 3 ml 1X ONCE NEB Last administered on 12/02/18 17:20; Start 12/02/18 at 17:30; Stop 12/02/18 at 17:31; Status DC Aspirin (Silvia Aspirin) 325 mg 1X ONCE PO Last administered on 12/02/18at 17:48; Start 12/02/18 at 17:30; Stop 12/02/18 at 17:31; Status DC Dexamethasone Sodium Phosphate (Decadron) 10 mg 1X ONCE IV Last administered on 12/02/18at 17:48; Start 12/02/18 at 17:30; Stop 12/02/18 at 17:31; Status DC Ondansetron HCl (Zofran) 4 mg PRN Q8HRS PRN IV NAUSEA/VOMITING; Start 12/02/18 at 17:45; Stop 12/03/18 at 17:44 Albuterol/ Ipratropium (Duoneb) 3 ml RTQID NEB ; Start 12/02/18 at 20:00; Stop 12/02/18 at 20:30; Status DC Bumetanide (Bumex) 0.5 mg 1X ONCE IV Last administered on 12/02/18at 18:21; Start 12/02/18 at 18:15; Stop 12/02/18 at 18:16; Status DC Aspirin (Children'S Aspirin) 81 mg DAILYWBKFT PO Last administered on 12/03/18at 08:47; Start 12/03/18 at 08:00 Nystatin (Nystop) 1 zakiya TID TP Last administered on 12/03/18at 08:48; Start 12/02/18 at 21:00 Albuterol/ Ipratropium (Duoneb) 3 ml Q6HRS NEB Last administered on 12/03/18at 12:30; Start 12/03/18 at 00:00 Mupirocin (Bactroban) 1 zakiya TID TP ; Start 12/02/18 at 21:00; Stop 12/02/18 at 21:00; Status DC Acetaminophen (Tylenol) 650 mg PRN Q6HRS PRN PO Pain/Fever Last administered on 12/03/18at 00:17; Start 12/02/18 at 20:00 Trimethoprim/ Sulfamethoxazole (Bactrim Ds) 0.5 tab BID PO ; Start 12/02/18 at 21:00; Status Cancel Trimethoprim/ Sulfamethoxazole (Bactrim Ds) 1 tab QHS PO Last administered on 12/02/18at 21:09; Start 12/02/18 at 21:00 Mupirocin (Bactroban) 1 zakiya TID TP ; Start 12/03/18 at 09:00; Stop 12/09/18 at 08:59 Atorvastatin Calcium (Lipitor) 40 mg QHS PO ; Start 12/03/18 at 21:00 Carvedilol (Coreg) 12.5 mg BIDWMEALS PO ; Start 12/03/18 at 17:00 Fluoxetine HCl (PROzac) 20 mg DAILY PO Last administered on 12/03/18at 14:46; Start 12/03/18 at 14:00 Furosemide (Lasix) 80 mg DAILY PO Last administered on 12/03/18at 14:46; Start 12/03/18 at 14:00 Celecoxib (CeleBREX) 200 mg DAILY PO Last administered on 12/03/18at 14:46; Start 12/03/18 at 14:00 Quetiapine Fumarate (SEROquel) 25 mg TID PO Last administered on 12/03/18at 14:46; Start 12/03/18 at 14:00 Spironolactone (Aldactone) 25 mg DAILY PO Last administered on 12/03/18at 14:46; Start 12/03/18 at 14:00 Lactobacillus Rhamnosus (Culturelle) 1 cap BID PO ; Start 12/03/18 at 21:00 Active Scripts Active Lasix (Furosemide) 80 Mg Tablet 1 Tab PO DAILY Reported Celecoxib 200 Mg Capsule 200 Mg PO DAILY Spironolactone 25 Mg Tablet 25 Mg PO DAILY Quetiapine Fumarate 25 Mg Tablet 25 Mg PO TID Fluoxetine Hcl 20 Mg Capsule 20 Mg PO DAILY Carvedilol 12.5 Mg Tablet 12.5 Mg PO BID Atorvastatin Calcium 40 Mg Tablet 40 Mg PO DAILY Vitals/I & O Vital Sign - Last 24 Hours 12/02/18 12/02/18 12/02/18 12/02/18 16:47 17:22 17:27 17:57 Temp 97.4 97.4 Pulse 89 78 86 Resp 24 B/P (MAP) 109/72 (84) 132/71 (91) 129/76 (93) Pulse Ox 69 99 100 87 O2 Delivery Room Air Nasal Cannula Nasal Cannula Nasal Cannula O2 Flow Rate 9.0 8.0 8.0 12/02/18 12/02/18 12/02/18 12/02/18 18:27 19:10 20:15 23:39 Temp 97.5 97.9 97.5 97.9 Pulse 84 84 84 Resp 24 20 20 B/P (MAP) 145/82 (103) 141/82 (101) 103/62 (76) Pulse Ox 95 95 92 O2 Delivery Nasal Cannula Nasal Cannula Nasal Cannula Nasal Cannula O2 Flow Rate 8.0 3.0 4.0 3.0 12/03/18 12/03/18 12/03/18 12/03/18 01:30 03:44 07:00 08:00 Temp 98.3 97.8 98.3 97.8 Pulse 79 77 Resp 20 20 B/P (MAP) 123/64 (83) 140/77 (98) Pulse Ox 92 95 O2 Delivery Nasal Cannula Nasal Cannula Nasal Cannula Nasal Cannula O2 Flow Rate 2.0 3.0 4.0 4.0 12/03/18 12/03/18 12/03/18 08:05 11:00 12:30 Temp 97.9 97.9 Pulse 93 Resp 18 B/P (MAP) 147/84 (105) Pulse Ox 91 94 93 O2 Delivery Nasal Cannula Nasal Cannula Nasal Cannula O2 Flow Rate 3.5 4.0 3.5 Intake and Output 12/02/18 12/02/18 12/03/18 14:59 22:59 06:59 Intake Total 250 ml 300 ml Balance 250 ml 300 ml SAM JUAN MD December 03, 2018 14:50
--- NOTE | 2018-12-03 14:51 | PDOC3 ---
Discharge Summary Visit Information Date of Admission: December 02, 2018 Date of Discharge: December 03, 2018 Final Diagnosis Shortness of breath, acute acute on chronic hypoxia CHF, acute on chronic sarcoidosis hyponatremia and hyperkalemia chronic renal failure Problems Medical Problems: (1) Dyspnea Status: Acute (2) Hypoxia Status: Acute Brief Hospital Course Allergies Allergies Coded Allergies Type Severity Reaction Last Updated Verified Penicillins Allergy Intermediate 12/03/18 Yes allopurinol Allergy Intermediate 12/03/18 Yes cephalexin Allergy Intermediate 12/03/18 Yes Vital Signs Vital Signs Date Time Temp Pulse Resp B/P (MAP) Pulse Ox O2 Delivery O2 Flow Rate FiO2 12/03/18 12:30 93 Nasal Cannula 3.5 12/03/18 11:00 97.9 93 18 147/84 (105) 97.9 Lab Results Laboratory Tests Test 12/02/18 17:10 12/02/18 17:12 12/02/18 20:55 12/02/18 23:35 White Blood Count 10.4 x10^3/uL (4.0-11.0) Red Blood Count 4.44 x10^6/uL (3.50-5.40) Hemoglobin 12.9 g/dL (12.0-15.5) Hematocrit 39.4 % (36.0-47.0) Mean Corpuscular Volume 89 fL (79-100) Mean Corpuscular Hemoglobin 29 pg (25-35) Mean Corpuscular Hemoglobin Concent 33 g/dL (31-37) Red Cell Distribution Width 15.7 % (11.5-14.5) Platelet Count 147 x10^3/uL (140-400) Neutrophils (%) (Auto) 81 % (31-73) Lymphocytes (%) (Auto) 11 % (24-48) Monocytes (%) (Auto) 4 % (0-9) Eosinophils (%) (Auto) 4 % (0-3) Basophils (%) (Auto) 1 % (0-3) Neutrophils # (Auto) 8.4 x10^3uL (1.8-7.7) Lymphocytes # (Auto) 1.1 x10^3/uL (1.0-4.8) Monocytes # (Auto) 0.4 x10^3/uL (0.0-1.1) Eosinophils # (Auto) 0.4 x10^3/uL (0.0-0.7) Basophils # (Auto) 0.1 x10^3/uL (0.0-0.2) D-Dimer (Emilia) 4.24 ug/mlFEU (0.00-0.50) Sodium Level 131 mmol/L (136-145) Potassium Level 5.4 mmol/L (3.5-5.1) Chloride Level 94 mmol/L (98-107) Carbon Dioxide Level 24 mmol/L (21-32) Anion Gap 13 (6-14) Blood Urea Nitrogen 42 mg/dL (7-20) Creatinine 2.0 mg/dL (0.6-1.0) Estimated GFR (Cockcroft-Gault) 24.4 BUN/Creatinine Ratio 21 (6-20) Glucose Level 176 mg/dL (70-99) Calcium Level 9.6 mg/dL (8.5-10.1) Magnesium Level 2.4 mg/dL (1.8-2.4) Total Bilirubin 1.0 mg/dL (0.2-1.0) Aspartate Amino Transf (AST/SGOT) 30 U/L (15-37) Alanine Aminotransferase (ALT/SGPT) 21 U/L (14-59) Alkaline Phosphatase 95 U/L (46-116) Creatine Kinase 35 U/L (26-192) Creatine Kinase MB (Mass) 1.2 ng/mL (0.0-3.6) Creatine Kinase MB Relative Index % (0-4) Troponin I Quantitative < 0.017 ng/mL (0.000-0.055) 0.072 ng/mL (0.000-0.055) 0.084 ng/mL (0.000-0.055) SE-Sok-R-Type Natriuretic Peptide 40220 pg/mL (0-124) Total Protein 8.3 g/dL (6.4-8.2) Albumin 3.5 g/dL (3.4-5.0) Albumin/Globulin Ratio 0.7 (1.0-1.7) Urine Collection Type Unknown Urine Color Yellow Urine Clarity Clear Urine pH 7.0 Urine Specific Cowden 1.010 Urine Protein Negative mg/dL (NEG-TRACE) Urine Glucose (UA) Negative mg/dL (NEG) Urine Ketones (Stick) Negative mg/dL (NEG) Urine Blood Negative (NEG) Urine Nitrite Negative (NEG) Urine Bilirubin Negative (NEG) Urine Urobilinogen Dipstick 0.2 mg/dL (0.2 mg/dL) Urine Leukocyte Esterase Trace (NEG) Urine RBC Occ /HPF (0-2) Urine WBC 1-4 /HPF (0-4) Urine Squamous Epithelial Cells Few /LPF Urine Transitional Epithelial Cells Occ /LPF Urine Bacteria Few /HPF (0-FEW) Urine Hyaline Casts Occasional /HPF Urine Mucus Slight /LPF Laboratory Tests Test 12/02/18 17:10 12/02/18 17:12 12/02/18 20:55 12/02/18 23:35 White Blood Count 10.4 x10^3/uL (4.0-11.0) Red Blood Count 4.44 x10^6/uL (3.50-5.40) Hemoglobin 12.9 g/dL (12.0-15.5) Hematocrit 39.4 % (36.0-47.0) Mean Corpuscular Volume 89 fL (79-100) Mean Corpuscular Hemoglobin 29 pg (25-35) Mean Corpuscular Hemoglobin Concent 33 g/dL (31-37) Red Cell Distribution Width 15.7 % (11.5-14.5) Platelet Count 147 x10^3/uL (140-400) Neutrophils (%) (Auto) 81 % (31-73) Lymphocytes (%) (Auto) 11 % (24-48) Monocytes (%) (Auto) 4 % (0-9) Eosinophils (%) (Auto) 4 % (0-3) Basophils (%) (Auto) 1 % (0-3) Neutrophils # (Auto) 8.4 x10^3uL (1.8-7.7) Lymphocytes # (Auto) 1.1 x10^3/uL (1.0-4.8) Monocytes # (Auto) 0.4 x10^3/uL (0.0-1.1) Eosinophils # (Auto) 0.4 x10^3/uL (0.0-0.7) Basophils # (Auto) 0.1 x10^3/uL (0.0-0.2) D-Dimer (Emilia) 4.24 ug/mlFEU (0.00-0.50) Sodium Level 131 mmol/L (136-145) Potassium Level 5.4 mmol/L (3.5-5.1) Chloride Level 94 mmol/L (98-107) Carbon Dioxide Level 24 mmol/L (21-32) Anion Gap 13 (6-14) Blood Urea Nitrogen 42 mg/dL (7-20) Creatinine 2.0 mg/dL (0.6-1.0) Estimated GFR (Cockcroft-Gault) 24.4 BUN/Creatinine Ratio 21 (6-20) Glucose Level 176 mg/dL (70-99) Calcium Level 9.6 mg/dL (8.5-10.1) Magnesium Level 2.4 mg/dL (1.8-2.4) Total Bilirubin 1.0 mg/dL (0.2-1.0) Aspartate Amino Transf (AST/SGOT) 30 U/L (15-37) Alanine Aminotransferase (ALT/SGPT) 21 U/L (14-59) Alkaline Phosphatase 95 U/L (46-116) Creatine Kinase 35 U/L (26-192) Creatine Kinase MB (Mass) 1.2 ng/mL (0.0-3.6) Creatine Kinase MB Relative Index % (0-4) Troponin I Quantitative < 0.017 ng/mL (0.000-0.055) 0.072 ng/mL (0.000-0.055) 0.084 ng/mL (0.000-0.055) GM-Uxx-W-Type Natriuretic Peptide 77083 pg/mL (0-124) Total Protein 8.3 g/dL (6.4-8.2) Albumin 3.5 g/dL (3.4-5.0) Albumin/Globulin Ratio 0.7 (1.0-1.7) Urine Collection Type Unknown Urine Color Yellow Urine Clarity Clear Urine pH 7.0 Urine Specific Cowden 1.010 Urine Protein Negative mg/dL (NEG-TRACE) Urine Glucose (UA) Negative mg/dL (NEG) Urine Ketones (Stick) Negative mg/dL (NEG) Urine Blood Negative (NEG) Urine Nitrite Negative (NEG) Urine Bilirubin Negative (NEG) Urine Urobilinogen Dipstick 0.2 mg/dL (0.2 mg/dL) Urine Leukocyte Esterase Trace (NEG) Urine RBC Occ /HPF (0-2) Urine WBC 1-4 /HPF (0-4) Urine Squamous Epithelial Cells Few /LPF Urine Transitional Epithelial Cells Occ /LPF Urine Bacteria Few /HPF (0-FEW) Urine Hyaline Casts Occasional /HPF Urine Mucus Slight /LPF Brief Hospital Course Ms. Woody is a 73 old admit with weakness, presyncope, acute on chronic dyspnea, with hypoxia due to sarcoid at baseline increase the lasix, cont aldatone, patient reports recent cardiac cath with Dr. Barnard at [facility], will follow with him, he had planned on stents after having her on aldactone for a time. potassium high, wlll increase home lasix dose, discussed with renal and CV consujtl I called Dr. Anderson, he would prefer the patient stay in the hospital, she wants badly to DC, and reports no pain and feels at her baseline, had recent cath, and wants to f/u at [facility] Discharge Information Condition at Discharge: Improved Follow Up: Weeks Disposition/Orders: D/C to Home Scheduled Atorvastatin Calcium (Atorvastatin Calcium) 40 Mg Tablet, 40 MG PO DAILY for Cholesterol, (Reported) Entered as Reported by: EMELIA BARRON RN on 12/02/182024 Last Taken: Unknown Dose on Unknown Date & Time Last Action: Continued on 12/03/181350 by ASM JUAN Carvedilol (Carvedilol) 12.5 Mg Tablet, 12.5 MG PO BID for Blood Pressure, (Reported) Entered as Reported by: EMELIA BARRON RN on 12/02/182024 Last Taken: Unknown Dose on Unknown Date & Time Last Action: Continued on 12/03/181350 by SAM JUAN Celecoxib (Celecoxib) 200 Mg Capsule, 200 MG PO DAILY for Sarcoidosis, (Reported) Entered as Reported by: EMELIA BARRON RN on 12/02/182024 Last Taken: Unknown Dose on Unknown Date & Time Last Action: Converted on 12/03/181350 by SAM JUAN Fluoxetine Hcl (Fluoxetine Hcl) 20 Mg Capsule, 20 MG PO DAILY for anxiety, (Reported) Entered as Reported by: EMELIA BARRON RN on 12/02/182024 Last Taken: Unknown Dose on Unknown Date & Time Last Action: Continued on 12/03/181350 by SAM JUAN Furosemide (Lasix) 80 Mg Tablet, 1 TAB PO DAILY for CHF, #10 Prescribed by: SAM JUAN on 12/03/18 1022 Last Action: Continued on 12/03/18 135 by SAM JUAN Quetiapine Fumarate (Quetiapine Fumarate) 25 Mg Tablet, 25 MG PO TID for depression, (Reported) Entered as Reported by: EMELIA BARRON RN on 12/02/182024 Last Taken: Unknown Dose on Unknown Date & Time Last Action: Converted on 12/03/181350 by SAM JUAN Spironolactone (Spironolactone) 25 Mg Tablet, 25 MG PO DAILY for diuretic; Blood Pressure, (Reported) Entered as Reported by: EMELIA BARRON RN on 12/02/182024 Last Taken: Unknown Dose on Unknown Date & Time Last Action: Converted on 12/03/181350 by SAM JUAN Discontinued Medications Furosemide (Furosemide) 40 Mg Tablet, 40 MG PO DAILY for Diuretic, (Reported) Entered as Reported by: EMELIA BARRON RN on 12/02/182024 Last Taken: Unknown Dose on Unknown Date & Time Last Action: Reviewed on 12/02/182028 by EMELIA BARRON RN Patient Instructions Patient Instructions > 30 min face to face she declined home health SAM JUAN MD December 03, 2018 14:51
[2018-12-03] MEDS ORDERED: CARVEDILOL 12.5 MG TABLET. PO SCH (17:00)
[2018-12-03 17:02] LABS: CHOLESTEROL/HDL RATIO 2.8
--- NOTE | 2018-12-03 17:08 | PDOC ---
PULMONARY PROGRESS NOTES Vitals Vital Signs Date Time Temp Pulse Resp B/P (MAP) Pulse Ox O2 Delivery O2 Flow Rate FiO2 12/03/18 16:36 Nasal Cannula 3.5 12/03/18 14:46 97.9 77 18 122/52 (75) 95 97.9 Lungs: Clear Labs Laboratory Tests Test 12/02/18 17:10 12/02/18 17:12 12/02/18 20:55 12/02/18 23:35 White Blood Count 10.4 x10^3/uL (4.0-11.0) Red Blood Count 4.44 x10^6/uL (3.50-5.40) Hemoglobin 12.9 g/dL (12.0-15.5) Hematocrit 39.4 % (36.0-47.0) Mean Corpuscular Volume 89 fL (79-100) Mean Corpuscular Hemoglobin 29 pg (25-35) Mean Corpuscular Hemoglobin Concent 33 g/dL (31-37) Red Cell Distribution Width 15.7 % (11.5-14.5) Platelet Count 147 x10^3/uL (140-400) Neutrophils (%) (Auto) 81 % (31-73) Lymphocytes (%) (Auto) 11 % (24-48) Monocytes (%) (Auto) 4 % (0-9) Eosinophils (%) (Auto) 4 % (0-3) Basophils (%) (Auto) 1 % (0-3) Neutrophils # (Auto) 8.4 x10^3uL (1.8-7.7) Lymphocytes # (Auto) 1.1 x10^3/uL (1.0-4.8) Monocytes # (Auto) 0.4 x10^3/uL (0.0-1.1) Eosinophils # (Auto) 0.4 x10^3/uL (0.0-0.7) Basophils # (Auto) 0.1 x10^3/uL (0.0-0.2) D-Dimer (Emilia) 4.24 ug/mlFEU (0.00-0.50) Sodium Level 131 mmol/L (136-145) Potassium Level 5.4 mmol/L (3.5-5.1) Chloride Level 94 mmol/L (98-107) Carbon Dioxide Level 24 mmol/L (21-32) Anion Gap 13 (6-14) Blood Urea Nitrogen 42 mg/dL (7-20) Creatinine 2.0 mg/dL (0.6-1.0) Estimated GFR (Cockcroft-Gault) 24.4 BUN/Creatinine Ratio 21 (6-20) Glucose Level 176 mg/dL (70-99) Calcium Level 9.6 mg/dL (8.5-10.1) Magnesium Level 2.4 mg/dL (1.8-2.4) Total Bilirubin 1.0 mg/dL (0.2-1.0) Aspartate Amino Transf (AST/SGOT) 30 U/L (15-37) Alanine Aminotransferase (ALT/SGPT) 21 U/L (14-59) Alkaline Phosphatase 95 U/L (46-116) Creatine Kinase 35 U/L (26-192) Creatine Kinase MB (Mass) 1.2 ng/mL (0.0-3.6) Creatine Kinase MB Relative Index % (0-4) Troponin I Quantitative < 0.017 ng/mL (0.000-0.055) 0.072 ng/mL (0.000-0.055) 0.084 ng/mL (0.000-0.055) UL-Nvv-O-Type Natriuretic Peptide 08158 pg/mL (0-124) Total Protein 8.3 g/dL (6.4-8.2) Albumin 3.5 g/dL (3.4-5.0) Albumin/Globulin Ratio 0.7 (1.0-1.7) Urine Collection Type Unknown Urine Color Yellow Urine Clarity Clear Urine pH 7.0 Urine Specific Dalton 1.010 Urine Protein Negative mg/dL (NEG-TRACE) Urine Glucose (UA) Negative mg/dL (NEG) Urine Ketones (Stick) Negative mg/dL (NEG) Urine Blood Negative (NEG) Urine Nitrite Negative (NEG) Urine Bilirubin Negative (NEG) Urine Urobilinogen Dipstick 0.2 mg/dL (0.2 mg/dL) Urine Leukocyte Esterase Trace (NEG) Urine RBC Occ /HPF (0-2) Urine WBC 1-4 /HPF (0-4) Urine Squamous Epithelial Cells Few /LPF Urine Transitional Epithelial Cells Occ /LPF Urine Bacteria Few /HPF (0-FEW) Urine Hyaline Casts Occasional /HPF Urine Mucus Slight /LPF Laboratory Tests Test 12/02/18 17:10 12/02/18 17:12 12/02/18 20:55 12/02/18 23:35 White Blood Count 10.4 x10^3/uL (4.0-11.0) Red Blood Count 4.44 x10^6/uL (3.50-5.40) Hemoglobin 12.9 g/dL (12.0-15.5) Hematocrit 39.4 % (36.0-47.0) Mean Corpuscular Volume 89 fL (79-100) Mean Corpuscular Hemoglobin 29 pg (25-35) Mean Corpuscular Hemoglobin Concent 33 g/dL (31-37) Red Cell Distribution Width 15.7 % (11.5-14.5) Platelet Count 147 x10^3/uL (140-400) Neutrophils (%) (Auto) 81 % (31-73) Lymphocytes (%) (Auto) 11 % (24-48) Monocytes (%) (Auto) 4 % (0-9) Eosinophils (%) (Auto) 4 % (0-3) Basophils (%) (Auto) 1 % (0-3) Neutrophils # (Auto) 8.4 x10^3uL (1.8-7.7) Lymphocytes # (Auto) 1.1 x10^3/uL (1.0-4.8) Monocytes # (Auto) 0.4 x10^3/uL (0.0-1.1) Eosinophils # (Auto) 0.4 x10^3/uL (0.0-0.7) Basophils # (Auto) 0.1 x10^3/uL (0.0-0.2) D-Dimer (Emilia) 4.24 ug/mlFEU (0.00-0.50) Sodium Level 131 mmol/L (136-145) Potassium Level 5.4 mmol/L (3.5-5.1) Chloride Level 94 mmol/L (98-107) Carbon Dioxide Level 24 mmol/L (21-32) Anion Gap 13 (6-14) Blood Urea Nitrogen 42 mg/dL (7-20) Creatinine 2.0 mg/dL (0.6-1.0) Estimated GFR (Cockcroft-Gault) 24.4 BUN/Creatinine Ratio 21 (6-20) Glucose Level 176 mg/dL (70-99) Calcium Level 9.6 mg/dL (8.5-10.1) Magnesium Level 2.4 mg/dL (1.8-2.4) Total Bilirubin 1.0 mg/dL (0.2-1.0) Aspartate Amino Transf (AST/SGOT) 30 U/L (15-37) Alanine Aminotransferase (ALT/SGPT) 21 U/L (14-59) Alkaline Phosphatase 95 U/L (46-116) Creatine Kinase 35 U/L (26-192) Creatine Kinase MB (Mass) 1.2 ng/mL (0.0-3.6) Creatine Kinase MB Relative Index % (0-4) Troponin I Quantitative < 0.017 ng/mL (0.000-0.055) 0.072 ng/mL (0.000-0.055) 0.084 ng/mL (0.000-0.055) BT-Oup-Y-Type Natriuretic Peptide 29352 pg/mL (0-124) Total Protein 8.3 g/dL (6.4-8.2) Albumin 3.5 g/dL (3.4-5.0) Albumin/Globulin Ratio 0.7 (1.0-1.7) Urine Collection Type Unknown Urine Color Yellow Urine Clarity Clear Urine pH 7.0 Urine Specific Dalton 1.010 Urine Protein Negative mg/dL (NEG-TRACE) Urine Glucose (UA) Negative mg/dL (NEG) Urine Ketones (Stick) Negative mg/dL (NEG) Urine Blood Negative (NEG) Urine Nitrite Negative (NEG) Urine Bilirubin Negative (NEG) Urine Urobilinogen Dipstick 0.2 mg/dL (0.2 mg/dL) Urine Leukocyte Esterase Trace (NEG) Urine RBC Occ /HPF (0-2) Urine WBC 1-4 /HPF (0-4) Urine Squamous Epithelial Cells Few /LPF Urine Transitional Epithelial Cells Occ /LPF Urine Bacteria Few /HPF (0-FEW) Urine Hyaline Casts Occasional /HPF Urine Mucus Slight /LPF Medications Active Scripts Medications Dose Route/Sig Max Daily Dose Days Date Category Lasix (Furosemide) 80 Mg Tablet 1 Tab PO DAILY 12/03/18 Rx Celecoxib 200 Mg Capsule 200 Mg PO DAILY 12/02/18 Reported Spironolactone 25 Mg Tablet 25 Mg PO DAILY 12/02/18 Reported Quetiapine Fumarate 25 Mg Tablet 25 Mg PO TID 12/02/18 Reported Fluoxetine Hcl 20 Mg Capsule 20 Mg PO DAILY 12/02/18 Reported Carvedilol 12.5 Mg Tablet 12.5 Mg PO BID 12/02/18 Reported Atorvastatin Calcium 40 Mg Tablet 40 Mg PO DAILY 12/02/18 Reported Impression . FULL CONSULT DICTATED OK TO D/C FOLLOW UP IN OFFICE RX FOR PRED BRAEDEN DICKSON MD December 03, 2018 17:08
[2018-12-03 19:16] VITALS: BP 127/75
--- NOTE | 2018-12-03 19:30 | NUR ---
Discharge Note: RIAZ PARRISH [facility] Discharge instructions and discharge home medications reviewed with Family Member and a copy given. All questions have been answered and understanding verbalized. The following instructions and handouts were given: Hypoxemia, Heart Failure, Lasix, Prednisone taper. Discontinued lines and drains: L FA peripheral IV, discontinued w/catheter tip intact, no bleeding or bruising. Patient discharged to home for self-care, outpt fup 1-[address] Castro, 1-[address] Barnard @ [facility] Cardiology. Dr. Su's name provided for Nephrology.
[2018-12-03] MEDS ORDERED: ATORVASTATIN CALCIUM 40 MG TABLET. PO SCH (21:00)
[2018-12-03] MEDS ORDERED: LACTOBACILLUS RHAMNOSUS GG 1 CAPSULE. PO SCH (21:00)
--- NOTE | 2018-12-04 02:42 | CONS ---
DATE OF CONSULTATION: 12/03/2018 ATTENDING PHYSICIAN: Dr. Glover. REASON FOR CONSULTATION: The patient is seen in pulmonary consultation at the request of Dr. Glover for history of sarcoid increasing shortness of air. HISTORY OF PRESENT ILLNESS: The patient is a 73-year-old patient of Dr. Manny Castro, who presented to the Emergency Room with increasing shortness of breath. She was admitted. I was asked to see her in consultation. She had a chest x-ray, which revealed some fibrosis. She has a history of sarcoid. She has been on oxygen supplementation for the last 1-1/2 years. Apparently, she never had any biopsies, but her clinical presentation and radiographic workup has been compatible with sarcoid. She was offered prednisone at some time, but she declined. She denies fever, chills, nausea, vomiting, or diarrhea. PAST MEDICAL HISTORY: 1. 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 2. Stage 2 sarcoid. 3. Hypertension. 4. Chronic heart failure. PAST SURGICAL HISTORY: Status post tubal ligation. ALLERGIES: LISTED TO PENICILLIN, ALLOPURINOL AND CEPHALEXIN. FAMILY HISTORY: No family history of sarcoid. SOCIAL HISTORY: She has never smoked. REVIEW OF SYSTEMS: CONSTITUTIONAL: No fever or chills. EYES: No change in visual acuity. HEENT: No nasal congestion or sore throat. PULMONARY: As indicated above. CARDIOVASCULAR: No chest pain, no pressure. GASTROINTESTINAL: No nausea, vomiting, diarrhea. GENITOURINARY: No dysuria or frequency. MUSCULOSKELETAL: No localized muscle aches or joint pain. SKIN: No new skin rashes. NEUROLOGIC: No headaches, diplopia or blurred vision. PHYSICAL EXAMINATION: VITAL SIGNS: The patient is currently on 3 liters of oxygen supplementation. At one point, she required 9 liters. HEENT: Eyes: The sclerae were nonicteric. NECK: Jugular venous distention was not elevated. No lymphadenopathy. CHEST: Full expansion. LUNGS: Crackles Velcro-type, compatible with pulmonary fibrosis. CARDIOVASCULAR: Regular rate and rhythm with S1, S2, no S3. ABDOMEN: Soft, nontender, nondistended. EXTREMITIES: No clubbing, cyanosis or pitting edema. NEUROLOGIC: The patient was awake, alert, following commands. A detailed neuro exam was not performed. LABORATORY DATA: Reviewed. Electrolytes were noted. Sodium was low, potassium was high. BUN and creatinine were elevated. BNP was elevated. Troponin was elevated. IMPRESSION: 1. Acute on chronic hypoxemic respiratory failure. 2. Acute nonspecific bronchitis. 3. Exacerbation of sarcoid as indicated above. 4. Pulmonary fibrosis. 5. Hyponatremia. 6. Hyperkalemia. 7. Chronic kidney disease. 8. Elevated troponin, suspect secondary to increased work of breathing. 9. ALLERGIES TO PENICILLIN, ALLOPURINOL AND CEPHALEXIN. PLAN: 1. The patient wishes to be discharged home today. Today was her birthday. From my standpoint of view, I concur. She will follow up with me in the office. 2. I have written a prescription for 30 mg of prednisone for 5 days. 3. No need for antibiotics. 4. We will have my office staff set up pulmonary function tests and follow up in the office after the PFTs have been completed. 5. Outpatient CT with high resolution cuts. Considering the patient's clinical presentation and her increasing dyspnea with exertion over the last 6 months to a year, I suspect her disease is progressing. We will investigate as an outpatient and consider alternative treatment. I do appreciate the privilege in sharing in the patient's care. BRAEDEN DICKSON MD DR: CATHY/magy JOB#: [id number] / [id number] Manny Devries MD
--- NOTE | 2018-12-04 08:31 | CARD ---
MR#: [id number] Date of Study: 12/03/2018 Ordering Physician: AMANDA LEON, Referring Physician: Grisel RAYMUNDO: Charis Yuan APPROVED REPORT EXAM: Two-dimensional and M-mode echocardiogram with Doppler and color Doppler. Other Information Quality : AverageHR: 86bpm INDICATION Dyspnea Hypoxia 2D DIMENSIONS RVDd2.7 (2.9-3.5cm)Left Atrium(2D)4.1 (1.6-4.0cm) IVSd1.1 (0.7-1.1cm)Aortic Root(2D)3.5 (2.0-3.7cm) LVDd5.8 (3.9-5.9cm)LVOT Diameter2.2 (1.8-2.4cm) PWd1.1 (0.7-1.1cm)LVDs3.9 (2.5-4.0cm) FS (%) 32.8 %SV99.5 ml LVEF(%)60.5 (>50%) Aortic Valve AoV Peak Chuy.120.9cm/sAoV VTI22.2cm AO Peak GR.5.8mmHgLVOT Peak Chuy.63.7cm/s LVOT VTI 12.56cmAO Mean GR.3mmHg ERIC (VMAX)1.52am5PHX (VTI)2.06cm2 Pulmonary Valve PV Peak Ckccvuxy26.4cm/sPV Peak Grad.2mmHg Tricuspid Valve TR P. Fwrmgspw757gf/sRAP [id number] TR Peak Gr.43weSeSAPC81edNq Pulmonary Vein S1 Tklwfurb84.9cm/sD2 Vutynqle51.8cm/s PVa [id number] LEFT VENTRICLE The Left Ventricle is borderline dilated. There is borderline to mild concentric left ventricular hyp ertrophy. The systolic function is low normal. EF 50%. There is normal LV segmental wall motion. Sept al motion suggestive of RV pressure overload. Tissue Doppler imaging reveals moderate left ventricula r diastolic dysfunction. RIGHT VENTRICLE The right ventricle is severely dilated. There is normal right ventricular wall thickness. The right ventricular systolic function is mildly reduced. ATRIA The left atrium size is normal. The right atrium is mildly dilated. The interatrial septum is intact with no evidence for an atrial septal defect or patent foramen ovale as noted on 2-D or Doppler imagi ng. AORTIC VALVE The aortic valve is normal in structure and function. Doppler and Color Flow revealed no significant aortic regurgitation. There is no significant aortic valvular stenosis. MITRAL VALVE The mitral valve is thickened but opens well. A mild mitral valve prolapse is present. There is no mi tral valve stenosis. Doppler and Color-flow revealed trace to mild mitral regurgitation. TRICUSPID VALVE The tricuspid valve is normal in structure and function. Doppler and Color Flow revealed trace to mil d tricuspid regurgitation with an estimated PAP of 74 mmHg. There is severe pulmonary hypertension. T here is no tricuspid valve stenosis. PULMONIC VALVE The pulmonic valve is not well visualized. Doppler and Color Flow revealed no pulmonic valvular regur gitation. There is no pulmonic valvular stenosis. GREAT VESSELS The aortic root is normal in size. The IVC is normal in size and collapses >50% with inspiration. PERICARDIAL EFFUSION There is no evidence of significant pericardial effusion. Critical Notification Critical Value: No <Conclusion> The systolic function is low normal. EF 50%. There is normal LV segmental wall motion. Septal motion suggestive of RV pressure overload. The right ventricle is severely dilated. The right ventricular systolic function is mildly reduced. Doppler and Color Flow revealed trace to mild tricuspid regurgitation with an estimated PAP of 74 mmH g. There is severe pulmonary hypertension. Signed by : Sanju Morelos, Electronically Approved : 12/04/2018 08:30:53
[2018-12-30] MEDS ORDERED: CARV3.12 PO (10:04)
== END 2018-12-03 19:30 | disposition home or self-care (01) | DRG 682 ==
LOC: ER 16:47 → 6 SOUTH 17:33
PROVIDERS: ADMIT Internal Medicine; ATTEND Internal Medicine
DX: N17.9 Acute kidney failure, unspecified (principal); J96.21 Acute and chronic respiratory failure with hypoxia; I50.33 Acute on chronic diastolic (congestive) heart failure; I13.0 Hypertensive heart and chronic kidney disease with heart failure and stage 1 through stage 4 chronic kidney disease, or unspecified chronic kidney disease; E87.1 Hypo-osmolality and hyponatremia; N18.9 Chronic kidney disease, unspecified; D86.9 Sarcoidosis, unspecified; E78.5 Hyperlipidemia, unspecified; E87.5 Hyperkalemia; F41.9 Anxiety disorder, unspecified; J20.9 Acute bronchitis, unspecified; I25.10 Atherosclerotic heart disease of native coronary artery without angina pectoris; J84.10 Pulmonary fibrosis, unspecified; K21.9 Gastro-esophageal reflux disease without esophagitis; Z82.49 Family history of ischemic heart disease and other diseases of the circulatory system; Z88.0 Allergy status to penicillin; Z90.710 Acquired absence of both cervix and uterus; Z98.51 Tubal ligation status; Z99.81 Dependence on supplemental oxygen; Z87.440 Personal history of urinary (tract) infections; F32.9 Major depressive disorder, single episode, unspecified; M19.90 Unspecified osteoarthritis, unspecified site; Z88.8 Allergy status to other drugs, medicaments and biological substances
CPT/HCPCS: 36415; 71045; 78582; 80053; 80061; 81001; 82553; 83735; 83880; 84484; 85025; 85379; 87086; 93005; 93306; 94640; 96374; 96375; A9540; A9558; J1100; J3490; J7620; 99291-25

== ENCOUNTER 2018-12-26 11:17 | Inpatient (IN) | payer MEDICARE ==
[~2018-12-26] VITALS: Ht 160 cm; Wt 63.6 kg
[~2018-12-26 11:17] MED LIST: ATOR40TA59 PO; CARV12.53 PO; CELE-20 PO; FLUO20CA8 PO; FURO40TA4 PO; FURO80TA72 PO; QUET25TA PO; SPIR25TA5 PO
[2018-12-26 13:10] VITALS: BP 110/72
[2018-12-26 15:10] VITALS: BP 125/81
[2018-12-26] MEDS ORDERED: HEPARIN for IV BOLUS 10,000 UNIT/10 ML VIAL. IV PRN (16:00)
[2018-12-26] MEDS ORDERED: IPRATRPIUM/ALBUTEROL 0.5/2.5MG 3 ML NEBU. NEB ONE (16:30)
--- NOTE | 2018-12-26 16:39 | PDOC1 ---
History and Physical Date of Admission Date of Admission DATE: 12/26/18 TIME: 16:34 History of Present Illness History of Present Illness recently dc here a few weeks ago, was admit for hypoxia and dyspnea, has COPD, was better with prednisone. her lasix was also doubled to 80 daily, and she felt well for a time, but then the last few days, worseneing dyspnea, no chest pain, but cannot catch her breath. to [facility] today, labs OK, troponin 0.7, creatinine up a little to 1.7, NSTEMI dx, and she requested transfer here Past Medical History Cardiovascular: CAD, CHF, HTN, Hyperlipidemia Pulmonary: Other CENTRAL NERVOUS SYSTEM: Other GI: GERD Psych: Anxiety, Depression Musculoskeletal: Osteoarthritis Rheumatologic: No pertinent hx Infectious disease: No pertinent hx Renal/: No pertinent hx Endocrine: No pertinent hx Past Surgical History Past Surgical History: Tubal Ligation, Tonsillectomy, Hysterectomy, Other Family History Family History: Heart Disease, Hypertension Social History Smoke: Quit (many yrs ago) ALCOHOL: none Drugs: None Current Medications Current Medications Current Medications Heparin Sodium/ Dextrose 500 ml @ 0 mls/hr CONT PRN IV SEE I/O RECORD; Start 12/26/18 at 16:00 Heparin Sodium (Porcine) (Heparin Sodium) 1,750 unit PRN Q6HRS PRN IV FOR UFH LEVEL LESS THAN 0.2; Start 12/26/18 at 16:00 Atorvastatin Calcium (Lipitor) 40 mg DAILY PO ; Start 12/27/18 at 09:00 Carvedilol (Coreg) 12.5 mg BIDWMEALS PO ; Start 12/26/18 at 17:00 Fluoxetine HCl (PROzac) 20 mg DAILY PO ; Start 12/27/18 at 09:00 Furosemide (Lasix) 80 mg DAILY PO ; Start 12/27/18 at 09:00 Celecoxib (CeleBREX) 200 mg DAILY PO ; Start 12/27/18 at 09:00 Quetiapine Fumarate (SEROquel) 25 mg TID PO ; Start 12/26/18 at 16:00 Spironolactone (Aldactone) 25 mg DAILY PO ; Start 12/27/18 at 09:00 Albuterol/ Ipratropium (Duoneb) 3 ml RTQID NEB ; Start 12/26/18 at 16:30 Budesonide (Pulmicort) 0.5 mg RTBID NEB ; Start 12/26/18 at 20:00 Albuterol/ Ipratropium (Duoneb) 3 ml 1X ONCE NEB ; Start 12/26/18 at 16:30; Stop 12/26/18 at 16:31; Status UNV Active Scripts Active Lasix (Furosemide) 80 Mg Tablet 1 Tab PO DAILY Reported Celecoxib 200 Mg Capsule 200 Mg PO DAILY Spironolactone 25 Mg Tablet 25 Mg PO DAILY Quetiapine Fumarate 25 Mg Tablet 25 Mg PO TID Fluoxetine Hcl 20 Mg Capsule 20 Mg PO DAILY Carvedilol 12.5 Mg Tablet 12.5 Mg PO BID Atorvastatin Calcium 40 Mg Tablet 40 Mg PO DAILY Allergies Allergies: Coded Allergies: Penicillins (Verified Allergy, Intermediate, 12/03/18) allopurinol (Verified Allergy, Intermediate, 12/03/18) cephalexin (Verified Allergy, Intermediate, 12/03/18) ROS General: YES: Fatigue, Malaise; No: Chills, Night Sweats, Appetite, Other PSYCHOLOGICAL ROS: YES: Sleep disturbances; No: Anxiety, Behavioral Disorder, Concentration difficultie, Decreased libido, Depression, Disorientation, Hallucinations, Hostility, Irritablity, Memory difficulties, Mood Swings, Obsessive thoughts, Other Eyes: No Blurry vision, No Decreased vision, No Double vision, No Dry eyes, No Excessive tearing, No Eye Pain, No Itchy Eyes, No Loss of vision, No Photophobia, No Scotomata, No Uses contacts, No Uses glasses, No Other HEENT: No: Heacaches, Visual Changes, Hearing change, Nasal congestion, Nasal discharge, Oral lesions, Sinus pain, Sore Throat, Epistaxis, Sneezing, Snoring, Tinnitus, Vertigo, Vocal changes, Other Respiratory: YES: Shortness of breath, SOB with excertion, Tachypnea; No: Cough, Hemoptysis, Orthopnea, Pleuritic Pain, Sputum Changes, Stridor, Wheezing, Other Cardiovascular: No Chest Pain, No Palpitations, No Orthopnea, No Paroxysmal Noc. Dyspnea, No Edema, No Lt Headedness, No Other Gastrointestinal: Yes Nausea Genitourinary: No Dysuria, No Frequency, No Incontinence, No Hematuria, No Retention, No Discharge, No Urgency, No Pain, No Flank Pain, No Other, No , No , No , No , No , No , No Musculoskeletal: Yes Joint Stiffness Neurological: No Behavorial Changes, No Bowel/Bladder ControlChng, No Confusion, No Dizziness, No Gait Disturbance, No Headaches, No Impaired Co ord/balance, No Memory Loss, No Numbness/Tingling, No Seizures, No Speech Problems, No Tremors, No Visual Changes, No Weakness, No Other Skin: Yes Dry Skin; No Eczema, No Hair Changes, No Lumps, No Mole Changes, No Mottling, No Nail Changes, No Pruritus, No Rash, No Skin Lesion Changes, No Other, No Acne Physical Exam General: Alert, Oriented X3, Cooperative, mild distress, moderate distress HEENT: PERRLA, EOMI, Mucous membr. moist/pink Lungs: Clear to auscultation, Other (mod low volume, end rales, no wheeze, ) Heart: S1S2, no murmurs, irregularly irregular Abdomen: Normal bowel sounds, Soft Extremities: No edema, Normal pulses Skin: No rashes Neuro: Normal speech, Sensation intact Vitals Vitals Vital Signs Date Time Temp Pulse Resp B/P (MAP) Pulse Ox O2 Delivery O2 Flow Rate FiO2 12/26/18 15:10 97.9 95 18 125/81 (96) 90 Room Air 97.9 12/26/18 13:10 6.0 VTE Prophylaxis Ordered VTE Prophylaxis Devices: No VTE Pharmacological Prophylaxi: Yes Assessment/Plan Assessment/Plan acute hypoxia subjective dyspnea NSTEMI, troponi 0.7, will trend COPD, nebs, consult PULM depression./anxiety, she reports as stable CKD 3 admit SAM JUAN MD Dec 26, 2018 16:39
[2018-12-26] MEDS: QUEtiapine 25 MG TABLET. PO SCH ×2 (16:47→20:35)
[2018-12-26] MEDS: CARVEDILOL 12.5 MG TABLET. PO SCH (16:47)
[2018-12-26] MEDS: HEPARIN 25,000UTS/500ML PREMIX 500 ML IV PRN (16:57)
[2018-12-26] MEDS: IPRATRPIUM/ALBUTEROL 0.5/2.5MG 3 ML NEBU. NEB SCH ×2 (17:27→19:41)
[2018-12-26] MEDS ORDERED: ASPIRIN ENTERIC COATED 325 MG TABLET.DR. PO ONE (17:45)
[2018-12-26] MEDS ORDERED: FUROSEMIDE 40 MG/4 ML VIAL. IVP ONE (17:45)
--- NOTE | 2018-12-26 17:58 | PDOC2 ---
CARDIAC CONSULT DATE OF CONSULT Date of Consult DATE: 12/26/18 TIME: 17:37 REASON FOR CONSULT Reason for Consult: NSTEMI REFERRING PHYSICIAN Referring Physician: Trevon SOURCE Source: Chart review, Patient HISTORY OF PRESENT ILLNESS HISTORY OF PRESENT ILLNESS This is a pleasant 73 yo female admitted for complains of SOA. Pt is signi ficant for Sarcoidosis with severe pulmonary HTN. She was going to her Dr's appt today and was walking in the driveway and felt dizzy and SOA and got dizzy and down on the ground but no fall. No chest pain or palpitations at that time. She then was transported to [facility] where she was given solumedrol but has not take any of her diuretics. She requested to be transferred here. No lasix was given which she takes 80 mg daily. She uses 4 LPM of O2 and was wondering why her O2 sat was not increasing despite her increasing her O2 and just realized that there must be something wrong with her concentrator as it has happened in the past. PAST MEDICAL HISTORY Past Medical History Cardiovascular: CAD, CHF, HTN, Hyperlipidemia Pulmonary: Other (chronic O2), sacoidosis, severe pulmonary HTN CENTRAL NERVOUS SYSTEM: Other (no pertinent hx) GI: GERD Psych: Anxiety, Depression Musculoskeletal: Osteoarthritis Rheumatologic: No pertinent hx Infectious disease: No pertinent hx ENT: No pertinent hx Renal/: No pertinent hx Endocrine: No pertinent hx Dermatology: No pertinent hx PAST SURGICAL HISTORY Past Surgical History Tubal Ligation, Tonsillectomy, Hysterectomy, Other (carpal tunnel) FAMILY HISTORY Family History: Heart Disease, Hypertension SOCIAL HISTORY Smoke: No ALCOHOL: none Drugs: None Lives: Alone CURRENT MEDICATIONS CURRENT MEDICATIONS Current Medications Medications (Trade) Dose Ordered Sig/Daphney Route PRN Reason Start Time Stop Time Status Last Admin Dose Admin Heparin Sodium/ Dextrose 500 ml @ 0 mls/hr CONT PRN IV SEE I/O RECORD 12/26/18 16:00 12/26/18 16:57 Carvedilol (Coreg) 12.5 mg BIDWMEALS PO 12/26/18 17:00 12/26/18 16:47 Quetiapine Fumarate (SEROquel) 25 mg TID PO 12/26/18 16:00 12/26/18 16:47 ALLERGIES ALLERGIES: Coded Allergies: Penicillins (Verified Allergy, Intermediate, 12/03/18) allopurinol (Verified Allergy, Intermediate, 12/03/18) cephalexin (Verified Allergy, Intermediate, 12/03/18) ROS Review of System 14 point ROS evaluated with pertinent positives noted per HPI PHYSICAL EXAM General: Alert, Oriented X3, Cooperative, No acute distress HEENT: Atraumatic, Mucous membr. moist/pink Lungs: Other (diffuse crackles) Heart: Regular rate (SR with RBBB), Other (3/6 systolic murmur to LLS border) Abdomen: Soft, No tenderness Extremities: No cyanosis, No edema Skin: No breakdown, No significant lesion Neuro: Normal speech, Sensation intact Psych/Mental Status: Mental status NL, Mood NL MUSCULOSKELETAL: Osteoarthritic changes both hands VITALS VITALS Vital Signs Date Time Temp Pulse Resp B/P (MAP) Pulse Ox O2 Delivery O2 Flow Rate FiO2 12/26/18 16:47 95 125/81 12/26/18 15:10 97.9 18 90 Room Air 97.9 12/26/18 13:10 6.0 ECHOCARDIOGRAM ECHOCARDIOGRAM <Conclusion> The systolic function is low normal. EF 50%. There is normal LV segmental wall motion. Septal motion suggestive of RV pressure overload. The right ventricle is severely dilated. The right ventricular systolic function is mildly reduced. Doppler and Color Flow revealed trace to mild tricuspid regurgitation with an estimated PAP of 74 mmHg. There is severe pulmonary hypertension. DATE: 12/04/18 0830 ASSESSMENT/PLAN ASSESSMENT/PLAN 1. 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 Acute on chronic diastolic CHF/cor pulmonale 3. HTN 4. HLP 5. CKD: suspect stage 3. 6. NSTEMI: troponin 0.72, CP free. EKG SR with RBBB no significant changes by comparison. Suspect type 2 dmeand mediated with culprits above 7. CAD: no stents. Being medically managed. Cath 03/2018 without intervention. Follows with Dr. Barnard with [facility]. Recommendations 1. Will need to have concentrator checked, discussed with staff. 2. Resume home BP meds and lasix therapy. BMP and Mg in am and check TSH. Repeat EKG trend troponin 3. did well with previous steroid therapy, defer to PCP. ASA. Heparin drip ongoing will DC in AM unless significant changes. MATIAS ROSS TUBE WINDER HAND Dec 26, 2018 17:58
[2018-12-26] MEDS ORDERED: OMEP20TA63 PO (18:52)
[2018-12-26 19:10] VITALS: BP 111/69
[2018-12-26] MEDS: BUDESONIDE 0.5 MG/2 ML NEBU. NEB SCH (19:41)
[2018-12-26] MEDS: ATORVASTATIN CALCIUM 40 MG TABLET. PO SCH (20:35)
--- NOTE | 2018-12-26 21:00 | EKG ---
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
[2018-12-26 23:25] VITALS: BP 94/58
[2018-12-27] VITALS (9 sets, daily range): BP systolic 94–118; BP diastolic 57–79
[2018-12-27 05:20] LABS: BASO % 0 % (0-3); EOS % 0 % (0-3); HEMOGLOBIN 13.5 g/dL (12.0-15.5); LYMPH # 1.3 x10^3/uL (1.0-4.8); LYMPH % 14 % (24-48); MEAN CORPUSCULAR HEMOGLOBIN 30 pg (25-35); MEAN CORPUSCULAR HGB CONC 34 g/dL (31-37); MEAN CORPUSCULAR VOLUME 88 fL (79-100); MONO # 0.5 x10^3/uL (0.0-1.1); MONO % 6 % (0-9); NEUT # 7.3 x10^3uL (1.8-7.7); NEUT % 80 % (31-73); PLATELET COUNT 164 x10^3/uL (140-400); RED BLOOD COUNT 4.54 x10^6/uL (3.50-5.40); RED CELL DISTRIBUTION WIDTH 16.8 % (11.5-14.5); WHITE BLOOD COUNT 9.1 x10^3/uL (4.0-11.0)
[2018-12-27 06:14] LABS: ALBUMIN 3.5 g/dL (3.4-5.0); ALBUMIN/GLOBULIN RATIO 0.8 (1.0-1.7); CALCIUM 9.9 mg/dL (8.5-10.1); CREATININE 1.8 mg/dL (0.6-1.0); GFR 27.4; MAGNESIUM 2.3 mg/dL (1.8-2.4); POTASSIUM 4.2 mmol/L (3.5-5.1); TOTAL BILIRUBIN 0.7 mg/dL (0.2-1.0); TOTAL PROTEIN 7.9 g/dL (6.4-8.2)
[2018-12-27 06:16] LABS: CHOLESTEROL/HDL RATIO 2.6
[2018-12-27] MEDS: IPRATRPIUM/ALBUTEROL 0.5/2.5MG 3 ML NEBU. NEB SCH ×4 (07:02→20:25)
[2018-12-27] MEDS: BUDESONIDE 0.5 MG/2 ML NEBU. NEB SCH ×2 (07:02→20:25)
[2018-12-27] MEDS: ASPIRIN ENTERIC COATED 81 MG TABLET.DR. PO SCH (08:10)
[2018-12-27] MEDS: FLUoxetine HCL 20 MG CAPSULE PO SCH (08:10)
[2018-12-27] MEDS: QUEtiapine 25 MG TABLET. PO SCH ×3 (08:11→20:15)
[2018-12-27] MEDS: CARVEDILOL 12.5 MG TABLET. PO SCH ×2 (08:11→18:00)
[2018-12-27] MEDS: SPIRONOLACTONE 25 MG TABLET PO SCH (08:11)
[2018-12-27] MEDS: FUROSEMIDE 80 MG TABLET. PO SCH (08:11)
[2018-12-27] MEDS ORDERED: CELECOXIB 100 MG CAPSULE. PO SCH (09:00)
--- NOTE | 2018-12-27 11:21 | EKG ---
[facility] [address] [place] [address] Test Date: 2018-12-27 Test Time: 11:13:31 Pat Name: KWASI PARRISH Department: Room: 252 1 Gender: F [employer] Machine: DANIEL : 1945 Requested By: MATIAS ROSS Order Number: [id number] Reading MD: Measurements Intervals Ivel Rate: 78 P: 54 NM: 184 QRS: 83 QRSD: 162 T: -46 QT: 410 QTc: 471 Interpretive Statements SINUS RHYTHM LEFT ATRIAL ABNORMALITY RIGHT BUNDLE BRANCH BLOCK RVH WITH REPOLARIZATION ABNORMALITY QRS(T) CONTOUR ABNORMALITY CONSISTENT WITH INFERIOR INFARCT AGE UNDETERMINED ABNORMAL ECG RI6.01 No previous ECG available for comparison
--- NOTE | 2018-12-27 11:44 | PDOC ---
CARDIO Progress Notes Date and Time Date of Service 12/27/2018 Time of Evaluation 1120 Subjective Subjective: No Chest Pain, No Palpitations, Other (ESQUIVEL) Vitals Vitals Vital Signs Date Time Temp Pulse Resp B/P (MAP) Pulse Ox O2 Delivery O2 Flow Rate FiO2 12/27/18 11:00 97.7 76 18 114/67 (83) 94 Nasal Cannula 2.0 97.7 Weight Weight [ ] Input and Output Intake and Output Intake and Output 12/27/18 07:00 Intake Total 830 ml Output Total 800 ml Balance 30 ml Intake Oral 830 ml Output Urine Total 800 ml # Voids 2 Laboratory Labs Laboratory Tests Test 12/26/18 17:45 12/26/18 22:00 12/27/18 04:50 Troponin I Quantitative 0.580 ng/mL (0.000-0.055) 1.038 ng/mL (0.000-0.055) DI-Ajy-T-Type Natriuretic Peptide > 20514 pg/mL (0-449) Heparin Anti-Xa Act, Unfractionated 0.14 IU/mL (0.30-0.70) 0.39 IU/mL (0.30-0.70) White Blood Count 9.1 x10^3/uL (4.0-11.0) Red Blood Count 4.54 x10^6/uL (3.50-5.40) Hemoglobin 13.5 g/dL (12.0-15.5) Hematocrit 40.0 % (36.0-47.0) Mean Corpuscular Volume 88 fL (79-100) Mean Corpuscular Hemoglobin 30 pg (25-35) Mean Corpuscular Hemoglobin Concent 34 g/dL (31-37) Red Cell Distribution Width 16.8 % (11.5-14.5) Platelet Count 164 x10^3/uL (140-400) Neutrophils (%) (Auto) 80 % (31-73) Lymphocytes (%) (Auto) 14 % (24-48) Monocytes (%) (Auto) 6 % (0-9) Eosinophils (%) (Auto) 0 % (0-3) Basophils (%) (Auto) 0 % (0-3) Neutrophils # (Auto) 7.3 x10^3uL (1.8-7.7) Lymphocytes # (Auto) 1.3 x10^3/uL (1.0-4.8) Monocytes # (Auto) 0.5 x10^3/uL (0.0-1.1) Eosinophils # (Auto) 0.0 x10^3/uL (0.0-0.7) Basophils # (Auto) 0.0 x10^3/uL (0.0-0.2) Sodium Level 139 mmol/L (136-145) Potassium Level 4.2 mmol/L (3.5-5.1) Chloride Level 100 mmol/L (98-107) Carbon Dioxide Level 24 mmol/L (21-32) Anion Gap 15 (6-14) Blood Urea Nitrogen 46 mg/dL (7-20) Creatinine 1.8 mg/dL (0.6-1.0) Estimated GFR (Cockcroft-Gault) 27.4 BUN/Creatinine Ratio 26 (6-20) Glucose Level 121 mg/dL (70-99) Calcium Level 9.9 mg/dL (8.5-10.1) Magnesium Level 2.3 mg/dL (1.8-2.4) Total Bilirubin 0.7 mg/dL (0.2-1.0) Aspartate Amino Transf (AST/SGOT) 33 U/L (15-37) Alanine Aminotransferase (ALT/SGPT) 27 U/L (14-59) Alkaline Phosphatase 99 U/L (46-116) Total Protein 7.9 g/dL (6.4-8.2) Albumin 3.5 g/dL (3.4-5.0) Albumin/Globulin Ratio 0.8 (1.0-1.7) Triglycerides Level 41 mg/dL (0-150) Cholesterol Level 150 mg/dL (0-200) LDL Cholesterol, Calculated 85 mg/dL (0-100) VLDL Cholesterol, Calculated 8 mg/dL (0-40) Non-HDL Cholesterol Calculated 93 mg/dL (0-129) HDL Cholesterol 57 mg/dL (40-60) Cholesterol/HDL Ratio 2.6 Physical Exam HEENT: Neck Supple W Full Motion Chest: Symmetric LUNGS: Other (diffuse crackles) Heart: S1S2, RRR (SR) Abdomen: Soft N/T Extremities: No Calf Tenderness Neurology: alert, oriented, follow commands Assessment Assessment 1. 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 Acute on chronic diastolic CHF/cor pulmonale: better today. Recent EF at 50% 3. HTN: controlled 4. HLP: close to goal 5. CKD3: Cr at 1.8 6. NSTEMI: troponin still rising to 1, remains CP free. EKG SR with chronic RBBB no significant changes by comparison. Suspect type 2 demand mediated with culprits above 7. CAD: Cath 03/2018 without intervention and was told may need stents but decided to medically managed. Follows with Dr. Barnard with [facility]. Recommendations 1. Will need to have concentrator checked, RT to check if device is able to brought in 2. Resume home BP meds and lasix therapy. Consult nephrology, pulmonary 3. Still needing more O2. Obtain LHC report from [facility] 4. Potential LHC tomorrow but may worsen renal function, will work closely with nephrology, will discuss with primary sales development consultant. Discussed with pt. 5. ASA, heparin. Repeat trop MATIAS ROSS APRN Dec 27, 2018 11:44
--- NOTE | 2018-12-27 12:04 | NUR ---
SS following up with discharge planning. SS reviewed pt chart.Pt is from home and is currently on services with [facility], ; fax [phone], for oxygen. SS received referral regarding "concentrator at home not working properly." SS met with pt to discuss. Pt reported that she discussed it with her son and her son contacted [facility] and [facility] delivered a new concentrator to her home this morning. Pt's RN notified.
[2018-12-27] MEDS ORDERED: ANTI-COAG MONITOR BY PHARMACY. MC PRN (13:15)
--- NOTE | 2018-12-27 13:28 | PDOC2 ---
CONSULT Date of Consult Date of Consult DATE: 12/27/18 TIME: 13:20 History of Present Illness Reason for Visit: Pt is a 73 yo CF recently dc from [facility] a few weeks ago, was admitted for hypoxia and dyspnea, has COPD, was better with prednisone. her lasix was also doubled to 80 daily. For last few days, she felt worseneing dyspnea, no chest pain, but cannot catch her breath. Went to [place] [facility] today, she requested transfer here Currently denies any complaints. No symptoms of UTI (Recurrent UTI;s on Bactrim in past) . Denies any N/V/D. Continues to take Celebrex at home though was advised last hospitalization to stop NSAID's Past Medical History Cardiovascular: CAD, CHF, HTN, Hyperlipidemia Pulmonary: Other CENTRAL NERVOUS SYSTEM: Other GI: GERD Psych: Anxiety, Depression Musculoskeletal: Osteoarthritis Rheumatologic: No pertinent hx Infectious disease: No pertinent hx Renal/: No pertinent hx Endocrine: No pertinent hx Past Surgical History Past Surgical History: Tubal Ligation, Tonsillectomy, Hysterectomy, Other Family History Family History: Heart Disease, Hypertension Social History No ALCOHOL: none Drugs: None Lives: Alone Current Medications Current Medications Current Medications Heparin Sodium/ Dextrose 500 ml @ 0 mls/hr CONT PRN IV SEE I/O RECORD Last administered on 12/26/18at 16:57; Start 12/26/18 at 16:00 Heparin Sodium (Porcine) (Heparin Sodium) 1,750 unit PRN Q6HRS PRN IV FOR UFH LEVEL LESS THAN 0.2; Start 12/26/18 at 16:00 Atorvastatin Calcium (Lipitor) 40 mg QHS PO Last administered on 12/26/18at 20:35; Start 12/26/18 at 21:00 Carvedilol (Coreg) 12.5 mg BIDWMEALS PO Last administered on 12/27/18at 08:11; Start 12/26/18 at 17:00 Fluoxetine HCl (PROzac) 20 mg DAILY PO Last administered on 12/27/18at 08:10; Start 12/27/18 at 09:00 Furosemide (Lasix) 80 mg DAILY PO Last administered on 12/27/18at 08:11; Start 12/27/18 at 09:00 Celecoxib (CeleBREX) 200 mg DAILY PO ; Start 12/27/18 at 09:00; Stop 12/27/18 at 09:00; Status DC Quetiapine Fumarate (SEROquel) 25 mg TID PO Last administered on 12/27/18at 08:11; Start 12/26/18 at 16:00 Spironolactone (Aldactone) 25 mg DAILY PO Last administered on 12/27/18at 08:11; Start 12/27/18 at 09:00 Albuterol/ Ipratropium (Duoneb) 3 ml RTQID NEB Last administered on 12/27/18at 12:38; Start 12/26/18 at 16:30 Budesonide (Pulmicort) 0.5 mg RTBID NEB Last administered on 12/27/18at 07:02; Start 12/26/18 at 20:00 Albuterol/ Ipratropium (Duoneb) 3 ml 1X ONCE NEB ; Start 12/26/18 at 16:30; Stop 12/26/18 at 16:31; Status UNV Furosemide (Lasix) 40 mg 1X ONCE IVP Last administered on 12/26/18at 18:46; Start 12/26/18 at 17:45; Stop 12/26/18 at 17:57; Status DC Aspirin (Ecotrin) 81 mg DAILYWBKFT PO Last administered on 12/27/18at 08:10; Start 12/27/18 at 08:00 Aspirin (Ecotrin) 325 mg 1X ONCE PO ; Start 12/26/18 at 17:45; Stop 12/26/18 at 17:57; Status DC Info (Anti-Coagulation Monitoring By Pharmacy) 1 each PRN DAILY PRN MC SEE COMMENTS; Start 12/27/18 at 13:15 Active Scripts Active Lasix (Furosemide) 80 Mg Tablet 1 Tab PO DAILY Reported Prilosec Otc (Omeprazole Magnesium) 20 Mg Tablet. 1 Tab PO DAILY Celecoxib 200 Mg Capsule 200 Mg PO DAILY Spironolactone 25 Mg Tablet 25 Mg PO DAILY Quetiapine Fumarate 25 Mg Tablet 25 Mg PO TID Fluoxetine Hcl 20 Mg Capsule 20 Mg PO DAILY Carvedilol 12.5 Mg Tablet 12.5 Mg PO BID Atorvastatin Calcium 40 Mg Tablet 40 Mg PO DAILY Allergies Allergies: Coded Allergies: Penicillins (Verified Allergy, Intermediate, 12/03/18) allopurinol (Verified Allergy, Intermediate, 12/03/18) cephalexin (Verified Allergy, Intermediate, 12/03/18) ROS Review of System Per HPI Physical Exam Physical Exam General: Alert, Oriented X3, Cooperative, No acute distress HEENT: Atraumatic, Mucous membr. moist/pink Neck Supple Lungs: CTA bilat Heart: Regular rate 3/6 systolic murmur Abdomen: Soft, No tenderness Extremities: No edema Skin: No Rash Neuro: Grossly n NO Heard Vital Signs Vital Signs Date Time Temp Pulse Resp B/P (MAP) Pulse Ox O2 Delivery O2 Flow Rate FiO2 12/27/18 12:46 Nasal Cannula 5.0 12/27/18 11:00 97.7 76 18 114/67 (83 94 97.7 Assessment & Plan CKD Stage 3 - stable renal function Seen by Renal as inpatient in november 2018 She reported she was not aware of CKD Per records from PCP (Dr. Castro) - Pt was at baseline renal function(Cr 2.0) and has been prescribed Bactrim Multiple times for UTI by PCP Long Hx of NSAID use - Aleve/or Ibuprofen QD Per Home med list Celebrex , Furosemide and Aldactone Acute on chronic respiratory failure with sarcoidosis/severe pulmonary HTN/CHF Acute on chronic diastolic CHF/cor pulmonale HTN- BP stable NSTEMI: Cath 03/2018 without intervention. Follows with Dr. Barnard with [facility]. Prophylaxis for GLORIA with IV NS 1ml/kg 12 hrs prior to and post procedure Hold Diuretics , No NSAID's Risk of GLORIA discussed with patient Sarcoidosis Discussed with Pt and RN Labs Labs Laboratory Tests Test 12/26/18 17:45 12/26/18 22:00 12/27/18 04:50 12/27/18 11:15 Troponin I Quantitative 0.580 ng/mL (0.000-0.055) 1.038 ng/mL (0.000-0.055) 0.702 ng/mL (0.000-0.055) LQ-Bky-J-Type Natriuretic Peptide > 38229 pg/mL (0-449) Heparin Anti-Xa Act, Unfractionated 0.14 IU/mL (0.30-0.70) 0.39 IU/mL (0.30-0.70) 0.39 IU/mL (0.30-0.70) White Blood Count 9.1 x10^3/uL (4.0-11.0) Red Blood Count 4.54 x10^6/uL (3.50-5.40) Hemoglobin 13.5 g/dL (12.0-15.5) Hematocrit 40.0 % (36.0-47.0) Mean Corpuscular Volume 88 fL (79-100) Mean Corpuscular Hemoglobin 30 pg (25-35) Mean Corpuscular Hemoglobin Concent 34 g/dL (31-37) Red Cell Distribution Width 16.8 % (11.5-14.5) Platelet Count 164 x10^3/uL (140-400) Neutrophils (%) (Auto) 80 % (31-73) Lymphocytes (%) (Auto) 14 % (24-48) Monocytes (%) (Auto) 6 % (0-9) Eosinophils (%) (Auto) 0 % (0-3) Basophils (%) (Auto) 0 % (0-3) Neutrophils # (Auto) 7.3 x10^3uL (1.8-7.7) Lymphocytes # (Auto) 1.3 x10^3/uL (1.0-4.8) Monocytes # (Auto) 0.5 x10^3/uL (0.0-1.1) Eosinophils # (Auto) 0.0 x10^3/uL (0.0-0.7) Basophils # (Auto) 0.0 x10^3/uL (0.0-0.2) Sodium Level 139 mmol/L (136-145) Potassium Level 4.2 mmol/L (3.5-5.1) Chloride Level 100 mmol/L (98-107) Carbon Dioxide Level 24 mmol/L (21-32) Anion Gap 15 (6-14) Blood Urea Nitrogen 46 mg/dL (7-20) Creatinine 1.8 mg/dL (0.6-1.0) Estimated GFR (Cockcroft-Gault) 27.4 BUN/Creatinine Ratio 26 (6-20) Glucose Level 121 mg/dL (70-99) Calcium Level 9.9 mg/dL (8.5-10.1) Magnesium Level 2.3 mg/dL (1.8-2.4) Total Bilirubin 0.7 mg/dL (0.2-1.0) Aspartate Amino Transf (AST/SGOT) 33 U/L (15-37) Alanine Aminotransferase (ALT/SGPT) 27 U/L (14-59) Alkaline Phosphatase 99 U/L (46-116) Total Protein 7.9 g/dL (6.4-8.2) Albumin 3.5 g/dL (3.4-5.0) Albumin/Globulin Ratio 0.8 (1.0-1.7) Triglycerides Level 41 mg/dL (0-150) Cholesterol Level 150 mg/dL (0-200) LDL Cholesterol, Calculated 85 mg/dL (0-100) VLDL Cholesterol, Calculated 8 mg/dL (0-40) Non-HDL Cholesterol Calculated 93 mg/dL (0-129) HDL Cholesterol 57 mg/dL (40-60) Cholesterol/HDL Ratio 2.6 Laboratory Tests Test 12/26/18 17:45 12/26/18 22:00 12/27/18 04:50 12/27/18 11:15 Troponin I Quantitative 0.580 ng/mL (0.000-0.055) 1.038 ng/mL (0.000-0.055) 0.702 ng/mL (0.000-0.055) LG-Trn-N-Type Natriuretic Peptide > 84642 pg/mL (0-449) Heparin Anti-Xa Act, Unfractionated 0.14 IU/mL (0.30-0.70) 0.39 IU/mL (0.30-0.70) 0.39 IU/mL (0.30-0.70) White Blood Count 9.1 x10^3/uL (4.0-11.0) Red Blood Count 4.54 x10^6/uL (3.50-5.40) Hemoglobin 13.5 g/dL (12.0-15.5) Hematocrit 40.0 % (36.0-47.0) Mean Corpuscular Volume 88 fL (79-100) Mean Corpuscular Hemoglobin 30 pg (25-35) Mean Corpuscular Hemoglobin Concent 34 g/dL (31-37) Red Cell Distribution Width 16.8 % (11.5-14.5) Platelet Count 164 x10^3/uL (140-400) Neutrophils (%) (Auto) 80 % (31-73) Lymphocytes (%) (Auto) 14 % (24-48) Monocytes (%) (Auto) 6 % (0-9) Eosinophils (%) (Auto) 0 % (0-3) Basophils (%) (Auto) 0 % (0-3) Neutrophils # (Auto) 7.3 x10^3uL (1.8-7.7) Lymphocytes # (Auto) 1.3 x10^3/uL (1.0-4.8) Monocytes # (Auto) 0.5 x10^3/uL (0.0-1.1) Eosinophils # (Auto) 0.0 x10^3/uL (0.0-0.7) Basophils # (Auto) 0.0 x10^3/uL (0.0-0.2) Sodium Level 139 mmol/L (136-145) Potassium Level 4.2 mmol/L (3.5-5.1) Chloride Level 100 mmol/L (98-107) Carbon Dioxide Level 24 mmol/L (21-32) Anion Gap 15 (6-14) Blood Urea Nitrogen 46 mg/dL (7-20) Creatinine 1.8 mg/dL (0.6-1.0) Estimated GFR (Cockcroft-Gault) 27.4 BUN/Creatinine Ratio 26 (6-20) Glucose Level 121 mg/dL (70-99) Calcium Level 9.9 mg/dL (8.5-10.1) Magnesium Level 2.3 mg/dL (1.8-2.4) Total Bilirubin 0.7 mg/dL (0.2-1.0) Aspartate Amino Transf (AST/SGOT) 33 U/L (15-37) Alanine Aminotransferase (ALT/SGPT) 27 U/L (14-59) Alkaline Phosphatase 99 U/L (46-116) Total Protein 7.9 g/dL (6.4-8.2) Albumin 3.5 g/dL (3.4-5.0) Albumin/Globulin Ratio 0.8 (1.0-1.7) Triglycerides Level 41 mg/dL (0-150) Cholesterol Level 150 mg/dL (0-200) LDL Cholesterol, Calculated 85 mg/dL (0-100) VLDL Cholesterol, Calculated 8 mg/dL (0-40) Non-HDL Cholesterol Calculated 93 mg/dL (0-129) HDL Cholesterol 57 mg/dL (40-60) Cholesterol/HDL Ratio 2.6 Review All relevant outside records, renal labs, imaging studies, telemetry/EKG's were reviewed. Images Images Diffuse interstitial thickening throughout the lung johnson. This is somewhat more evident as compared to previous CT exam. Left lateral basilar consolidation. Correlate with prior exams. Interval follow-up two-view chest x-ray exam to assess resolution recommended. SARWAT ZHOU MD Dec 27, 2018 13:28
--- NOTE | 2018-12-27 14:20 | PDOC ---
PULMONARY PROGRESS NOTES Vitals Vital Signs Date Time Temp Pulse Resp B/P (MAP) Pulse Ox O2 Delivery O2 Flow Rate FiO2 12/27/18 12:46 Nasal Cannula 5.0 12/27/18 11:00 97.7 76 18 114/67 (83) 94 97.7 Lungs: Clear Labs Laboratory Tests Test 12/26/18 17:45 12/26/18 22:00 12/27/18 04:50 12/27/18 11:15 Troponin I Quantitative 0.580 ng/mL (0.000-0.055) 1.038 ng/mL (0.000-0.055) 0.702 ng/mL (0.000-0.055) ZT-Sps-V-Type Natriuretic Peptide > 79756 pg/mL (0-449) Heparin Anti-Xa Act, Unfractionated 0.14 IU/mL (0.30-0.70) 0.39 IU/mL (0.30-0.70) 0.39 IU/mL (0.30-0.70) White Blood Count 9.1 x10^3/uL (4.0-11.0) Red Blood Count 4.54 x10^6/uL (3.50-5.40) Hemoglobin 13.5 g/dL (12.0-15.5) Hematocrit 40.0 % (36.0-47.0) Mean Corpuscular Volume 88 fL (79-100) Mean Corpuscular Hemoglobin 30 pg (25-35) Mean Corpuscular Hemoglobin Concent 34 g/dL (31-37) Red Cell Distribution Width 16.8 % (11.5-14.5) Platelet Count 164 x10^3/uL (140-400) Neutrophils (%) (Auto) 80 % (31-73) Lymphocytes (%) (Auto) 14 % (24-48) Monocytes (%) (Auto) 6 % (0-9) Eosinophils (%) (Auto) 0 % (0-3) Basophils (%) (Auto) 0 % (0-3) Neutrophils # (Auto) 7.3 x10^3uL (1.8-7.7) Lymphocytes # (Auto) 1.3 x10^3/uL (1.0-4.8) Monocytes # (Auto) 0.5 x10^3/uL (0.0-1.1) Eosinophils # (Auto) 0.0 x10^3/uL (0.0-0.7) Basophils # (Auto) 0.0 x10^3/uL (0.0-0.2) Sodium Level 139 mmol/L (136-145) Potassium Level 4.2 mmol/L (3.5-5.1) Chloride Level 100 mmol/L (98-107) Carbon Dioxide Level 24 mmol/L (21-32) Anion Gap 15 (6-14) Blood Urea Nitrogen 46 mg/dL (7-20) Creatinine 1.8 mg/dL (0.6-1.0) Estimated GFR (Cockcroft-Gault) 27.4 BUN/Creatinine Ratio 26 (6-20) Glucose Level 121 mg/dL (70-99) Calcium Level 9.9 mg/dL (8.5-10.1) Magnesium Level 2.3 mg/dL (1.8-2.4) Total Bilirubin 0.7 mg/dL (0.2-1.0) Aspartate Amino Transf (AST/SGOT) 33 U/L (15-37) Alanine Aminotransferase (ALT/SGPT) 27 U/L (14-59) Alkaline Phosphatase 99 U/L (46-116) Total Protein 7.9 g/dL (6.4-8.2) Albumin 3.5 g/dL (3.4-5.0) Albumin/Globulin Ratio 0.8 (1.0-1.7) Triglycerides Level 41 mg/dL (0-150) Cholesterol Level 150 mg/dL (0-200) LDL Cholesterol, Calculated 85 mg/dL (0-100) VLDL Cholesterol, Calculated 8 mg/dL (0-40) Non-HDL Cholesterol Calculated 93 mg/dL (0-129) HDL Cholesterol 57 mg/dL (40-60) Cholesterol/HDL Ratio 2.6 Laboratory Tests Test 12/26/18 17:45 12/26/18 22:00 12/27/18 04:50 12/27/18 11:15 Troponin I Quantitative 0.580 ng/mL (0.000-0.055) 1.038 ng/mL (0.000-0.055) 0.702 ng/mL (0.000-0.055) AF-Nns-O-Type Natriuretic Peptide > 39197 pg/mL (0-449) Heparin Anti-Xa Act, Unfractionated 0.14 IU/mL (0.30-0.70) 0.39 IU/mL (0.30-0.70) 0.39 IU/mL (0.30-0.70) White Blood Count 9.1 x10^3/uL (4.0-11.0) Red Blood Count 4.54 x10^6/uL (3.50-5.40) Hemoglobin 13.5 g/dL (12.0-15.5) Hematocrit 40.0 % (36.0-47.0) Mean Corpuscular Volume 88 fL (79-100) Mean Corpuscular Hemoglobin 30 pg (25-35) Mean Corpuscular Hemoglobin Concent 34 g/dL (31-37) Red Cell Distribution Width 16.8 % (11.5-14.5) Platelet Count 164 x10^3/uL (140-400) Neutrophils (%) (Auto) 80 % (31-73) Lymphocytes (%) (Auto) 14 % (24-48) Monocytes (%) (Auto) 6 % (0-9) Eosinophils (%) (Auto) 0 % (0-3) Basophils (%) (Auto) 0 % (0-3) Neutrophils # (Auto) 7.3 x10^3uL (1.8-7.7) Lymphocytes # (Auto) 1.3 x10^3/uL (1.0-4.8) Monocytes # (Auto) 0.5 x10^3/uL (0.0-1.1) Eosinophils # (Auto) 0.0 x10^3/uL (0.0-0.7) Basophils # (Auto) 0.0 x10^3/uL (0.0-0.2) Sodium Level 139 mmol/L (136-145) Potassium Level 4.2 mmol/L (3.5-5.1) Chloride Level 100 mmol/L (98-107) Carbon Dioxide Level 24 mmol/L (21-32) Anion Gap 15 (6-14) Blood Urea Nitrogen 46 mg/dL (7-20) Creatinine 1.8 mg/dL (0.6-1.0) Estimated GFR (Cockcroft-Gault) 27.4 BUN/Creatinine Ratio 26 (6-20) Glucose Level 121 mg/dL (70-99) Calcium Level 9.9 mg/dL (8.5-10.1) Magnesium Level 2.3 mg/dL (1.8-2.4) Total Bilirubin 0.7 mg/dL (0.2-1.0) Aspartate Amino Transf (AST/SGOT) 33 U/L (15-37) Alanine Aminotransferase (ALT/SGPT) 27 U/L (14-59) Alkaline Phosphatase 99 U/L (46-116) Total Protein 7.9 g/dL (6.4-8.2) Albumin 3.5 g/dL (3.4-5.0) Albumin/Globulin Ratio 0.8 (1.0-1.7) Triglycerides Level 41 mg/dL (0-150) Cholesterol Level 150 mg/dL (0-200) LDL Cholesterol, Calculated 85 mg/dL (0-100) VLDL Cholesterol, Calculated 8 mg/dL (0-40) Non-HDL Cholesterol Calculated 93 mg/dL (0-129) HDL Cholesterol 57 mg/dL (40-60) Cholesterol/HDL Ratio 2.6 Medications Active Scripts Medications Dose Route/Sig Max Daily Dose Days Date Category Prilosec Otc (Omeprazole Magnesium) 20 Mg Tablet.dr 1 Tab PO DAILY 12/26/18 Reported Lasix (Furosemide) 80 Mg Tablet 1 Tab PO DAILY 12/03/18 Rx Celecoxib 200 Mg Capsule 200 Mg PO DAILY 12/02/18 Reported Spironolactone 25 Mg Tablet 25 Mg PO DAILY 12/02/18 Reported Quetiapine Fumarate 25 Mg Tablet 25 Mg PO TID 12/02/18 Reported Fluoxetine Hcl 20 Mg Capsule 20 Mg PO DAILY 12/02/18 Reported Carvedilol 12.5 Mg Tablet 12.5 Mg PO BID 12/02/18 Reported Atorvastatin Calcium 40 Mg Tablet 40 Mg PO DAILY 12/02/18 Reported Impression . FULL CONSULT DICTATED SEVERE PULMONARY HTN FIBROSIS ILD WILL ORDER CT CHEST HAS PATIENT HAD A RIGHT HEART CATH WILL CHECK OLD RECORDS BRAEDEN DICKSON MD Dec 27, 2018 14:20
--- NOTE | 2018-12-27 14:55 | RAD ---
Examination: CT chest without contrast HISTORY: History of shortness of breath, pulmonary hypertension COMPARISON: None available TECHNIQUE: Axial CT images of chest were performed without contrast. Coronal and sagittal reformats are performed Exposure: One or more of the following individualized dose reduction techniques were utilized for this examination: 1. Automated exposure control 2. Adjustment of the mA and/or kV according to patient size 3. Use of iterative reconstruction technique FINDINGS: The central airways are patent. Moderate cardiomegaly. The ascending aorta measures 3.7 cm in transverse dimension. Diffuse coronary artery calcifications identified. Few prominent mediastinal lymph nodes identified with the largest measuring 1.6 cm in the pretracheal region. Diffuse prominent appearing bilateral interstitial lung markings with reticular interstitial changes identified throughout the bilateral lungs with honeycombing changes suggestive of fibrosis possibly idiopathic pulmonary fibrosis. Mild diffuse traction bronchiectatic changes identified in the bilateral lungs. No evidence of pleural effusion or pneumothorax. The visualized noncontrasted liver, spleen, adrenals grossly appears unremarkable. Partially visualized cystic structure identified posterior to the liver probably a right renal cyst or cystic lesion. Moderate degenerative changes thoracic spine. Moderate aortic atherosclerosis. IMPRESSION: 1. Diffuse prominent bilateral interstitial lung markings with reticular interstitial changes in the bilateral lungs likely diffuse pulmonary fibrosis probably idiopathic pulmonary fibrosis. Traction bronchiectatic changes identified in the bilateral lungs. 2. Moderate cardiomegaly. Electronically signed by: César Pierson MD (12/27/2018 2:53 PM) [place] [id number]
--- NOTE | 2018-12-27 15:11 | PDOC ---
PROGRESS NOTES Chief Complaint Chief Complaint acute hypoxia with acute CHF exacerbation subjective dyspnea on chronic hypercarbic failure, NSTEMI, type 2, demand, troponin peaked at 1.0, COPD, nebs, consult PULM depression./anxiety, stable CKD 3 weakness and debility, aquired History of Present Illness History of Present Illness CT scan CV and PULm following feels better no event start PT and OT Vitals Vitals Vital Signs Date Time Temp Pulse Resp B/P (MAP) Pulse Ox O2 Delivery O2 Flow Rate FiO2 12/27/18 12:46 Nasal Cannula 5.0 12/27/18 11:00 97.7 76 18 114/67 (83) 94 97.7 Physical Exam General: Alert, Oriented X3, Cooperative, No acute distress Heart: Regular rate (SR with RBBB), Other (3/6 systolic murmur to LLS border) Lungs: Clear Abdomen: Soft, No tenderness Extremities: No cyanosis, No edema Skin: No breakdown, No significant lesion Labs LABS Laboratory Tests Test 12/26/18 17:45 12/26/18 22:00 12/27/18 04:50 12/27/18 11:15 Troponin I Quantitative 0.580 ng/mL (0.000-0.055) 1.038 ng/mL (0.000-0.055) 0.702 ng/mL (0.000-0.055) SS-Xxy-B-Type Natriuretic Peptide > 07401 pg/mL (0-449) Heparin Anti-Xa Act, Unfractionated 0.14 IU/mL (0.30-0.70) 0.39 IU/mL (0.30-0.70) 0.39 IU/mL (0.30-0.70) White Blood Count 9.1 x10^3/uL (4.0-11.0) Red Blood Count 4.54 x10^6/uL (3.50-5.40) Hemoglobin 13.5 g/dL (12.0-15.5) Hematocrit 40.0 % (36.0-47.0) Mean Corpuscular Volume 88 fL (79-100) Mean Corpuscular Hemoglobin 30 pg (25-35) Mean Corpuscular Hemoglobin Concent 34 g/dL (31-37) Red Cell Distribution Width 16.8 % (11.5-14.5) Platelet Count 164 x10^3/uL (140-400) Neutrophils (%) (Auto) 80 % (31-73) Lymphocytes (%) (Auto) 14 % (24-48) Monocytes (%) (Auto) 6 % (0-9) Eosinophils (%) (Auto) 0 % (0-3) Basophils (%) (Auto) 0 % (0-3) Neutrophils # (Auto) 7.3 x10^3uL (1.8-7.7) Lymphocytes # (Auto) 1.3 x10^3/uL (1.0-4.8) Monocytes # (Auto) 0.5 x10^3/uL (0.0-1.1) Eosinophils # (Auto) 0.0 x10^3/uL (0.0-0.7) Basophils # (Auto) 0.0 x10^3/uL (0.0-0.2) Sodium Level 139 mmol/L (136-145) Potassium Level 4.2 mmol/L (3.5-5.1) Chloride Level 100 mmol/L (98-107) Carbon Dioxide Level 24 mmol/L (21-32) Anion Gap 15 (6-14) Blood Urea Nitrogen 46 mg/dL (7-20) Creatinine 1.8 mg/dL (0.6-1.0) Estimated GFR (Cockcroft-Gault) 27.4 BUN/Creatinine Ratio 26 (6-20) Glucose Level 121 mg/dL (70-99) Calcium Level 9.9 mg/dL (8.5-10.1) Magnesium Level 2.3 mg/dL (1.8-2.4) Total Bilirubin 0.7 mg/dL (0.2-1.0) Aspartate Amino Transf (AST/SGOT) 33 U/L (15-37) Alanine Aminotransferase (ALT/SGPT) 27 U/L (14-59) Alkaline Phosphatase 99 U/L (46-116) Total Protein 7.9 g/dL (6.4-8.2) Albumin 3.5 g/dL (3.4-5.0) Albumin/Globulin Ratio 0.8 (1.0-1.7) Triglycerides Level 41 mg/dL (0-150) Cholesterol Level 150 mg/dL (0-200) LDL Cholesterol, Calculated 85 mg/dL (0-100) VLDL Cholesterol, Calculated 8 mg/dL (0-40) Non-HDL Cholesterol Calculated 93 mg/dL (0-129) HDL Cholesterol 57 mg/dL (40-60) Cholesterol/HDL Ratio 2.6 Comment Review of Relevant I have reviewed the following items richard (where applicable) has been applied. Labs Laboratory Tests Test 12/26/18 17:45 12/26/18 22:00 12/27/18 04:50 12/27/18 11:15 Troponin I Quantitative 0.580 ng/mL (0.000-0.055) 1.038 ng/mL (0.000-0.055) 0.702 ng/mL (0.000-0.055) LQ-Rlh-N-Type Natriuretic Peptide > 11725 pg/mL (0-449) Heparin Anti-Xa Act, Unfractionated 0.14 IU/mL (0.30-0.70) 0.39 IU/mL (0.30-0.70) 0.39 IU/mL (0.30-0.70) White Blood Count 9.1 x10^3/uL (4.0-11.0) Red Blood Count 4.54 x10^6/uL (3.50-5.40) Hemoglobin 13.5 g/dL (12.0-15.5) Hematocrit 40.0 % (36.0-47.0) Mean Corpuscular Volume 88 fL (79-100) Mean Corpuscular Hemoglobin 30 pg (25-35) Mean Corpuscular Hemoglobin Concent 34 g/dL (31-37) Red Cell Distribution Width 16.8 % (11.5-14.5) Platelet Count 164 x10^3/uL (140-400) Neutrophils (%) (Auto) 80 % (31-73) Lymphocytes (%) (Auto) 14 % (24-48) Monocytes (%) (Auto) 6 % (0-9) Eosinophils (%) (Auto) 0 % (0-3) Basophils (%) (Auto) 0 % (0-3) Neutrophils # (Auto) 7.3 x10^3uL (1.8-7.7) Lymphocytes # (Auto) 1.3 x10^3/uL (1.0-4.8) Monocytes # (Auto) 0.5 x10^3/uL (0.0-1.1) Eosinophils # (Auto) 0.0 x10^3/uL (0.0-0.7) Basophils # (Auto) 0.0 x10^3/uL (0.0-0.2) Sodium Level 139 mmol/L (136-145) Potassium Level 4.2 mmol/L (3.5-5.1) Chloride Level 100 mmol/L (98-107) Carbon Dioxide Level 24 mmol/L (21-32) Anion Gap 15 (6-14) Blood Urea Nitrogen 46 mg/dL (7-20) Creatinine 1.8 mg/dL (0.6-1.0) Estimated GFR (Cockcroft-Gault) 27.4 BUN/Creatinine Ratio 26 (6-20) Glucose Level 121 mg/dL (70-99) Calcium Level 9.9 mg/dL (8.5-10.1) Magnesium Level 2.3 mg/dL (1.8-2.4) Total Bilirubin 0.7 mg/dL (0.2-1.0) Aspartate Amino Transf (AST/SGOT) 33 U/L (15-37) Alanine Aminotransferase (ALT/SGPT) 27 U/L (14-59) Alkaline Phosphatase 99 U/L (46-116) Total Protein 7.9 g/dL (6.4-8.2) Albumin 3.5 g/dL (3.4-5.0) Albumin/Globulin Ratio 0.8 (1.0-1.7) Triglycerides Level 41 mg/dL (0-150) Cholesterol Level 150 mg/dL (0-200) LDL Cholesterol, Calculated 85 mg/dL (0-100) VLDL Cholesterol, Calculated 8 mg/dL (0-40) Non-HDL Cholesterol Calculated 93 mg/dL (0-129) HDL Cholesterol 57 mg/dL (40-60) Cholesterol/HDL Ratio 2.6 Laboratory Tests Test 12/26/18 17:45 12/26/18 22:00 12/27/18 04:50 12/27/18 11:15 Troponin I Quantitative 0.580 ng/mL (0.000-0.055) 1.038 ng/mL (0.000-0.055) 0.702 ng/mL (0.000-0.055) NU-Enb-A-Type Natriuretic Peptide > 49308 pg/mL (0-449) Heparin Anti-Xa Act, Unfractionated 0.14 IU/mL (0.30-0.70) 0.39 IU/mL (0.30-0.70) 0.39 IU/mL (0.30-0.70) White Blood Count 9.1 x10^3/uL (4.0-11.0) Red Blood Count 4.54 x10^6/uL (3.50-5.40) Hemoglobin 13.5 g/dL (12.0-15.5) Hematocrit 40.0 % (36.0-47.0) Mean Corpuscular Volume 88 fL (79-100) Mean Corpuscular Hemoglobin 30 pg (25-35) Mean Corpuscular Hemoglobin Concent 34 g/dL (31-37) Red Cell Distribution Width 16.8 % (11.5-14.5) Platelet Count 164 x10^3/uL (140-400) Neutrophils (%) (Auto) 80 % (31-73) Lymphocytes (%) (Auto) 14 % (24-48) Monocytes (%) (Auto) 6 % (0-9) Eosinophils (%) (Auto) 0 % (0-3) Basophils (%) (Auto) 0 % (0-3) Neutrophils # (Auto) 7.3 x10^3uL (1.8-7.7) Lymphocytes # (Auto) 1.3 x10^3/uL (1.0-4.8) Monocytes # (Auto) 0.5 x10^3/uL (0.0-1.1) Eosinophils # (Auto) 0.0 x10^3/uL (0.0-0.7) Basophils # (Auto) 0.0 x10^3/uL (0.0-0.2) Sodium Level 139 mmol/L (136-145) Potassium Level 4.2 mmol/L (3.5-5.1) Chloride Level 100 mmol/L (98-107) Carbon Dioxide Level 24 mmol/L (21-32) Anion Gap 15 (6-14) Blood Urea Nitrogen 46 mg/dL (7-20) Creatinine 1.8 mg/dL (0.6-1.0) Estimated GFR (Cockcroft-Gault) 27.4 BUN/Creatinine Ratio 26 (6-20) Glucose Level 121 mg/dL (70-99) Calcium Level 9.9 mg/dL (8.5-10.1) Magnesium Level 2.3 mg/dL (1.8-2.4) Total Bilirubin 0.7 mg/dL (0.2-1.0) Aspartate Amino Transf (AST/SGOT) 33 U/L (15-37) Alanine Aminotransferase (ALT/SGPT) 27 U/L (14-59) Alkaline Phosphatase 99 U/L (46-116) Total Protein 7.9 g/dL (6.4-8.2) Albumin 3.5 g/dL (3.4-5.0) Albumin/Globulin Ratio 0.8 (1.0-1.7) Triglycerides Level 41 mg/dL (0-150) Cholesterol Level 150 mg/dL (0-200) LDL Cholesterol, Calculated 85 mg/dL (0-100) VLDL Cholesterol, Calculated 8 mg/dL (0-40) Non-HDL Cholesterol Calculated 93 mg/dL (0-129) HDL Cholesterol 57 mg/dL (40-60) Cholesterol/HDL Ratio 2.6 Medications Current Medications Heparin Sodium/ Dextrose 500 ml @ 0 mls/hr CONT PRN IV SEE I/O RECORD Last administered on 12/26/18at 16:57; Start 12/26/18 at 16:00 Heparin Sodium (Porcine) (Heparin Sodium) 1,750 unit PRN Q6HRS PRN IV FOR UFH LEVEL LESS THAN 0.2; Start 12/26/18 at 16:00 Atorvastatin Calcium (Lipitor) 40 mg QHS PO Last administered on 12/26/18at 20:35; Start 12/26/18 at 21:00 Carvedilol (Coreg) 12.5 mg BIDWMEALS PO Last administered on 12/27/18at 08:11; Start 12/26/18 at 17:00 Fluoxetine HCl (PROzac) 20 mg DAILY PO Last administered on 12/27/18at 08:10; Start 12/27/18 at 09:00 Furosemide (Lasix) 80 mg DAILY PO Last administered on 12/27/18at 08:11; Start 12/27/18 at 09:00 Celecoxib (CeleBREX) 200 mg DAILY PO ; Start 12/27/18 at 09:00; Stop 12/27/18 at 09:00; Status DC Quetiapine Fumarate (SEROquel) 25 mg TID PO Last administered on 12/27/18at 14:55; Start 12/26/18 at 16:00 Spironolactone (Aldactone) 25 mg DAILY PO Last administered on 12/27/18at 08:11; Start 12/27/18 at 09:00 Albuterol/ Ipratropium (Duoneb) 3 ml RTQID NEB Last administered on 12/27/18at 12:38; Start 12/26/18 at 16:30 Budesonide (Pulmicort) 0.5 mg RTBID NEB Last administered on 12/27/18at 07:02; S tart 12/26/18 at 20:00 Albuterol/ Ipratropium (Duoneb) 3 ml 1X ONCE NEB ; Start 12/26/18 at 16:30; Stop 12/26/18 at 16:31; Status UNV Furosemide (Lasix) 40 mg 1X ONCE IVP Last administered on 12/26/18at 18:46; Start 12/26/18 at 17:45; Stop 12/26/18 at 17:57; Status DC Aspirin (Ecotrin) 81 mg DAILYWBKFT PO Last administered on 12/27/18at 08:10; Start 12/27/18 at 08:00 Aspirin (Ecotrin) 325 mg 1X ONCE PO ; Start 12/26/18 at 17:45; Stop 12/26/18 at 17:57; Status DC Info (Anti-Coagulation Monitoring By Pharmacy) 1 each PRN DAILY PRN MC SEE COMMENTS Last administered on 12/27/18at 13:17; Start 12/27/18 at 13:15 Active Scripts Active Lasix (Furosemide) 80 Mg Tablet 1 Tab PO DAILY Reported Prilosec Otc (Omeprazole Magnesium) 20 Mg Tablet. 1 Tab PO DAILY Celecoxib 200 Mg Capsule 200 Mg PO DAILY Spironolactone 25 Mg Tablet 25 Mg PO DAILY Quetiapine Fumarate 25 Mg Tablet 25 Mg PO TID Fluoxetine Hcl 20 Mg Capsule 20 Mg PO DAILY Carvedilol 12.5 Mg Tablet 12.5 Mg PO BID Atorvastatin Calcium 40 Mg Tablet 40 Mg PO DAILY Vitals/I & O Vital Sign - Last 24 Hours 12/26/18 12/26/18 12/26/18 12/26/18 15:10 16:47 19:10 19:42 Temp 97.9 98.7 97.9 98.7 Pulse 95 95 87 Resp 18 18 B/P (MAP) 125/81 (96) 125/81 111/69 (83) Pulse Ox 90 93 93 O2 Delivery Room Air Nasal Cannula Nasal Cannula O2 Flow Rate 6.0 6.0 12/26/18 12/26/18 12/27/18 12/27/18 20:00 23:25 03:23 07:00 Temp 97.7 98.4 98.0 97.7 98.4 98.0 Pulse 93 80 78 Resp 17 18 18 B/P (MAP) 94/58 (70) 94/67 (76) 102/79 (87) Pulse Ox 93 96 99 O2 Delivery Nasal Cannula Nasal Cannula Nasal Cannula Nasal Cannula O2 Flow Rate 6.0 6.0 2.0 2.0 12/27/18 12/27/18 12/27/18 12/27/18 07:03 08:00 08:11 11:00 Temp 97.7 97.7 Pulse 82 76 Resp 18 B/P (MAP) 120/79 114/67 (83) Pulse Ox 97 94 O2 Delivery Nasal Cannula Nasal Cannula Nasal Cannula O2 Flow Rate 6.0 6.0 2.0 12/27/18 12:46 O2 Delivery Nasal Cannula O2 Flow Rate 5.0 Intake and Output 12/26/18 12/26/18 12/27/18 15:00 23:00 07:00 Intake Total 630 ml 200 ml Output Total 800 ml Balance 630 ml -600 ml SAM JUAN MD Dec 27, 2018 15:11
--- NOTE | 2018-12-27 19:52 | RAD ---
EXAM: Bilateral lower extremity venous Doppler sonogram. HISTORY: Shortness of breath. Pain and swelling. TECHNIQUE: Holloway scale and color Doppler sonographic evaluation of the bilateral lower extremity veins with spectral waveform analysis was performed. FINDINGS: There is normal color flow, normal compressibility and there are normal spectral waveforms in the common femoral, superficial femoral, popliteal, posterior tibial and greater saphenous veins. IMPRESSION: No Doppler evidence of lower extremity deep venous thrombosis. Electronically signed by: Jayda Bourne MD (12/27/2018 7:49 PM) [facility]
[2018-12-27] MEDS: ATORVASTATIN CALCIUM 40 MG TABLET. PO SCH (20:15)
[2018-12-27] MEDS: HEPARIN 25,000UTS/500ML PREMIX 500 ML IV PRN (22:27)
[2018-12-28 02:47] VITALS: BP 107/67
--- NOTE | 2018-12-28 05:03 | CONS ---
DATE OF CONSULTATION: 12/27/2018 ATTENDING PHYSICIAN: Dr. Rosalinda escudero. REASON FOR CONSULTATION: The patient is seen in pulmonary consultation at the request of Dr. Escudero for increasing shortness of air. HISTORY OF PRESENT ILLNESS: The patient is a 73-year-old, with a presumptive diagnosis of sarcoid, has been on oxygen supplementation for approximately a year, presented with increasing shortness of breath, near syncopal episode. She states that over the last several weeks, she has had increasing difficulty keeping her saturations up. With exertion, she becomes dizzy, has to sit down. She had an echocardiogram revealing ejection fraction of 50%, pulmonary artery pressure of 74. She normally sees Dr. Barnard for cardiac services. She does not know if she has had a right heart catheterization. PAST MEDICAL HISTORY: Coronary artery disease, chronic heart failure, hypertension, hyperlipidemia, chronic respiratory failure, presumptive sarcoid, she has never had any biopsies; gastroesophageal reflux, anxiety, osteoarthritis. PAST SURGICAL HISTORY: No recent major surgeries. ALLERGIES: PENICILLIN, ALLOPURINOL AND CEPHALEXIN. REVIEW OF SYSTEMS: As indicated above, otherwise, a 10-point system was reviewed and negative. PHYSICAL EXAMINATION: VITAL SIGNS: Stable. O2 saturation was greater than 92%. HEENT: Eyes, the sclerae were nonicteric. NECK: Jugular venous distention was not elevated. No lymphadenopathy. CHEST: Full expansion. LUNGS: Bilateral crackles, Velcro type. CARDIOVASCULAR: Regular rate and rhythm with S1, S2, no S3. ABDOMEN: Soft, nontender, nondistended. EXTREMITIES: No clubbing, cyanosis or edema. NEUROLOGIC: The patient was awake, alert, following commands. A detailed neuro exam was not performed. Chest x-ray revealed bilateral interstitial lung markings with questionable fibrosis. Echocardiogram as indicated above. LABORATORY DATA: Reviewed. IMPRESSION: 1. Acute on chronic respiratory failure. 2. Abnormal x-ray compatible with fibrosis, interstitial lung disease, possibly related to sarcoid. 3. Severe secondary pulmonary hypertension. 4. Dizziness and near syncopal episode. 5. Coronary artery disease with chronic heart failure. 6. Hyperlipidemia. PLAN: 1. We will obtain CT angiogram to rule out pulmonary embolism. 2. We will obtain old records, I am wondering if the patient had a right heart catheterization. 3. Continue oxygen supplementation. 4. We will obtain office records and make further recommendations. I do appreciate the privilege in sharing in the patient's care. BRAEDEN DICKSON MD DR: CATHY/magy JOB#: [id number] / [id number]
[2018-12-28 07:24] VITALS: BP 113/74
[2018-12-28] MEDS: CARVEDILOL 12.5 MG TABLET. PO SCH ×2 (09:23→17:46)
[2018-12-28] MEDS: FLUoxetine HCL 20 MG CAPSULE PO SCH (09:23)
[2018-12-28] MEDS: ASPIRIN ENTERIC COATED 81 MG TABLET.DR. PO SCH (09:23)
[2018-12-28] MEDS: QUEtiapine 25 MG TABLET. PO SCH ×3 (09:24→20:19)
[2018-12-28 10:54] VITALS: BP 110/59
--- NOTE | 2018-12-28 11:05 | PDOC ---
PULMONARY PROGRESS NOTES Subjective STILL SOA WITH MINIMAL EXERTION Vitals Vital Signs Date Time Temp Pulse Resp B/P (MAP) Pulse Ox O2 Delivery O2 Flow Rate FiO2 12/28/18 10:54 98.0 65 20 110/59 (76) 94 Nasal Cannula 2.0 98.0 ROS: No Nausea, No Chest Pain, No Abdominal Pain, No Increase Cough Lungs: Crackles Cardiovascular: S1, S2 Abdomen: Soft Neuro Exam: Alert Extremities: No Edema Skin: Warm Labs Laboratory Tests Test 12/26/18 17:45 12/26/18 22:00 12/27/18 04:50 12/27/18 11:15 Troponin I Quantitative 0.580 ng/mL (0.000-0.055) 1.038 ng/mL (0.000-0.055) 0.702 ng/mL (0.000-0.055) JL-Onq-L-Type Natriuretic Peptide > 92331 pg/mL (0-449) Heparin Anti-Xa Act, Unfractionated 0.14 IU/mL (0.30-0.70) 0.39 IU/mL (0.30-0.70) 0.39 IU/mL (0.30-0.70) White Blood Count 9.1 x10^3/uL (4.0-11.0) Red Blood Count 4.54 x10^6/uL (3.50-5.40) Hemoglobin 13.5 g/dL (12.0-15.5) Hematocrit 40.0 % (36.0-47.0) Mean Corpuscular Volume 88 fL (79-100) Mean Corpuscular Hemoglobin 30 pg (25-35) Mean Corpuscular Hemoglobin Concent 34 g/dL (31-37) Red Cell Distribution Width 16.8 % (11.5-14.5) Platelet Count 164 x10^3/uL (140-400) Neutrophils (%) (Auto) 80 % (31-73) Lymphocytes (%) (Auto) 14 % (24-48) Monocytes (%) (Auto) 6 % (0-9) Eosinophils (%) (Auto) 0 % (0-3) Basophils (%) (Auto) 0 % (0-3) Neutrophils # (Auto) 7.3 x10^3uL (1.8-7.7) Lymphocytes # (Auto) 1.3 x10^3/uL (1.0-4.8) Monocytes # (Auto) 0.5 x10^3/uL (0.0-1.1) Eosinophils # (Auto) 0.0 x10^3/uL (0.0-0.7) Basophils # (Auto) 0.0 x10^3/uL (0.0-0.2) Sodium Level 139 mmol/L (136-145) Potassium Level 4.2 mmol/L (3.5-5.1) Chloride Level 100 mmol/L (98-107) Carbon Dioxide Level 24 mmol/L (21-32) Anion Gap 15 (6-14) Blood Urea Nitrogen 46 mg/dL (7-20) Creatinine 1.8 mg/dL (0.6-1.0) Estimated GFR (Cockcroft-Gault) 27.4 BUN/Creatinine Ratio 26 (6-20) Glucose Level 121 mg/dL (70-99) Calcium Level 9.9 mg/dL (8.5-10.1) Magnesium Level 2.3 mg/dL (1.8-2.4) Total Bilirubin 0.7 mg/dL (0.2-1.0) Aspartate Amino Transf (AST/SGOT) 33 U/L (15-37) Alanine Aminotransferase (ALT/SGPT) 27 U/L (14-59) Alkaline Phosphatase 99 U/L (46-116) Total Protein 7.9 g/dL (6.4-8.2) Albumin 3.5 g/dL (3.4-5.0) Albumin/Globulin Ratio 0.8 (1.0-1.7) Triglycerides Level 41 mg/dL (0-150) Cholesterol Level 150 mg/dL (0-200) LDL Cholesterol, Calculated 85 mg/dL (0-100) VLDL Cholesterol, Calculated 8 mg/dL (0-40) Non-HDL Cholesterol Calculated 93 mg/dL (0-129) HDL Cholesterol 57 mg/dL (40-60) Cholesterol/HDL Ratio 2.6 Test 12/28/18 04:20 Heparin Anti-Xa Act, Unfractionated 0.25 IU/mL (0.30-0.70) Laboratory Tests Test 12/27/18 11:15 12/28/18 04:20 Heparin Anti-Xa Act, Unfractionated 0.39 IU/mL (0.30-0.70) 0.25 IU/mL (0.30-0.70) Troponin I Quantitative 0.702 ng/mL (0.000-0.055) Medications Active Scripts Medications Dose Route/Sig Max Daily Dose Days Date Category Prilosec Otc (Omeprazole Magnesium) 20 Mg Tablet.dr 1 Tab PO DAILY 12/26/18 Reported Lasix (Furosemide) 80 Mg Tablet 1 Tab PO DAILY 12/03/18 Rx Celecoxib 200 Mg Capsule 200 Mg PO DAILY 12/02/18 Reported Spironolactone 25 Mg Tablet 25 Mg PO DAILY 12/02/18 Reported Quetiapine Fumarate 25 Mg Tablet 25 Mg PO TID 12/02/18 Reported Fluoxetine Hcl 20 Mg Capsule 20 Mg PO DAILY 12/02/18 Reported Carvedilol 12.5 Mg Tablet 12.5 Mg PO BID 12/02/18 Reported Atorvastatin Calcium 40 Mg Tablet 40 Mg PO DAILY 12/02/18 Reported Impression . IMPRESSION: 1. Acute on chronic respiratory failure. 2. Abnormal x-ray compatible with fibrosis, interstitial lung disease, possibly related to sarcoid. 3. Severe secondary pulmonary hypertension. 4. Dizziness and near syncopal episode. 5. Coronary artery disease with chronic heart failure. 6. Hyperlipidemia. CT 12/27 IMPRESSION: 1. Diffuse prominent bilateral interstitial lung markings with reticular interstitial changes in the bilateral lungs likely diffuse pulmonary fibrosis probably idiopathic pulmonary fibrosis. Traction bronchiectatic changes identified in the bilateral lungs. 2. Moderate cardiomegaly. Plan . PT NOT SEEN IN OFFICE SINCE 2014 SHE MAY HAVE IPF NOT SARCOID WILL DEFER TO DR BADILLO AT [facility] FOR MANAGEMENT OF SEC PULMONARY HTN NOT ABLE TO PREFORM RHC SEC TO KIDNEY INSUFFICIENCY BRAEDEN DICKSON MD Dec 28, 2018 11:05
--- NOTE | 2018-12-28 11:13 | PDOC ---
CARDIO Progress Notes Date and Time Date of Service 12/28/2018 Time of Evaluation 1050 Subjective Subjective: No Chest Pain, No shortness of breath, No Palpitations Vitals Vitals Vital Signs Date Time Temp Pulse Resp B/P (MAP) Pulse Ox O2 Delivery O2 Flow Rate FiO2 12/28/18 10:54 98.0 65 20 110/59 (76) 94 Nasal Cannula 2.0 98.0 Weight Weight [ ] Input and Output Intake and Output Intake and Output0 12/28/18 07:00 Intake Total 0 ml Output Total 1300 ml Balance -1300 ml Intake Oral 0 ml Output Urine Total 1300 ml Laboratory Labs Laboratory Tests Test 12/27/18 11:15 12/28/18 04:20 Heparin Anti-Xa Act, Unfractionated 0.39 IU/mL (0.30-0.70) 0.25 IU/mL (0.30-0.70) Troponin I Quantitative 0.702 ng/mL (0.000-0.055) Physical Exam HEENT: Neck Supple W Full Motion Chest: Symmetric LUNGS: Other (diffuse crackles) Heart: S1S2, RRR (SR) Abdomen: Soft N/T Extremities: No Calf Tenderness Neurology: alert, oriented, follow commands Assessment Assessment 1. 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 Acute on chronic diastolic CHF: EF 50%, compensated 3. HTN: controlled 4. HLP: close to goal 5. CKD3: Cr at 1.8 6. NSTEMI: troponin still rising to 1, remains CP free. EKG SR with chronic RBBB no significant changes by comparison. Suspect type 2 demand mediated with culprits above 7. CAD: Cath 03/2018 without intervention and was told may need stents but decided to medically managed. Further description as noted per chart review below Recommendations 1. Concentrator replacement pending. CM on the case 2. Resume home BP meds and lasix therapy. 3. Based on chart review noted below, no further cardiac intervention needed at this time. Pt remains CP free and EF is actually significantly improved from 20 to 50%. 4. ASA, continue with secondary prevention 5. Continue with optimization, follow up with Dr. Barnard in 1-2 weeks. Chart review 04/17/2018 LHC: LM proximal 30% lesion moderate LAD calcification EF was 20% 70-80% OM2 with vessel <2 mm diameter RCA mid total occlusion with distal l to r collateral RHC with mean PA pressure 32 and systolic PA pressure at 50 RCA intervention was deferred due to complexity of lesion and no further significant issues in regards to viability study noted below. 04/19/2019 viability study noted with mixed ischemia and scar to basal and inferolateral regions extending to midcavity and secod defect present at rest involving the mid to distal lat wall improved at stress consistent with artifact Conclusion noted at moderate riosk MATIAS [employer]S [employer] Dec 28, 2018 11:13
--- NOTE | 2018-12-28 12:43 | PDOC ---
PROGRESS NOTES Chief Complaint Chief Complaint acute hypoxia with acute CHF exacerbation subjective dyspnea on chronic hypercarbic failure, NSTEMI, type 2, demand, troponin peaked at 1.0, COPD, nebs, consult PULM depression./anxiety, stable CKD 3 weakness and debility, aquired History of Present Illness History of Present Illness CT scan CV and PULm following feels better no event start PT and OT Vitals Vitals Vital Signs Date Time Temp Pulse Resp B/P (MAP) Pulse Ox O2 Delivery O2 Flow Rate FiO2 12/28/18 10:54 98.0 65 20 110/59 (76) 94 Nasal Cannula 2.0 98.0 Physical Exam General: Alert, Oriented X3, Cooperative, No acute distress Heart: Regular rate (SR with RBBB), Other (3/6 systolic murmur to LLS border) Lungs: Clear Abdomen: Soft, No tenderness Extremities: No cyanosis, No edema Skin: No breakdown, No significant lesion Labs LABS Laboratory Tests Test 12/28/18 04:20 Heparin Anti-Xa Act, Unfractionated 0.25 IU/mL (0.30-0.70) Review of Systems Review of Systems dyspnea, weakness, no n/vd Comment Review of Relevant I have reviewed the following items richard (where applicable) has been applied. Labs Laboratory Tests Test 12/26/18 17:45 12/26/18 22:00 12/27/18 04:50 12/27/18 11:15 Troponin I Quantitative 0.580 ng/mL (0.000-0.055) 1.038 ng/mL (0.000-0.055) 0.702 ng/mL (0.000-0.055) KA-Rhi-T-Type Natriuretic Peptide > 39200 pg/mL (0-449) Heparin Anti-Xa Act, Unfractionated 0.14 IU/mL (0.30-0.70) 0.39 IU/mL (0.30-0.70) 0.39 IU/mL (0.30-0.70) White Blood Count 9.1 x10^3/uL (4.0-11.0) Red Blood Count 4.54 x10^6/uL (3.50-5.40) Hemoglobin 13.5 g/dL (12.0-15.5) Hematocrit 40.0 % (36.0-47.0) Mean Corpuscular Volume 88 fL (79-100) Mean Corpuscular Hemoglobin 30 pg (25-35) Mean Corpuscular Hemoglobin Concent 34 g/dL (31-37) Red Cell Distribution Width 16.8 % (11.5-14.5) Platelet Count 164 x10^3/uL (140-400) Neutrophils (%) (Auto) 80 % (31-73) Lymphocytes (%) (Auto) 14 % (24-48) Monocytes (%) (Auto) 6 % (0-9) Eosinophils (%) (Auto) 0 % (0-3) Basophils (%) (Auto) 0 % (0-3) Neutrophils # (Auto) 7.3 x10^3uL (1.8-7.7) Lymphocytes # (Auto) 1.3 x10^3/uL (1.0-4.8) Monocytes # (Auto) 0.5 x10^3/uL (0.0-1.1) Eosinophils # (Auto) 0.0 x10^3/uL (0.0-0.7) Basophils # (Auto) 0.0 x10^3/uL (0.0-0.2) Sodium Level 139 mmol/L (136-145) Potassium Level 4.2 mmol/L (3.5-5.1) Chloride Level 100 mmol/L (98-107) Carbon Dioxide Level 24 mmol/L (21-32) Anion Gap 15 (6-14) Blood Urea Nitrogen 46 mg/dL (7-20) Creatinine 1.8 mg/dL (0.6-1.0) Estimated GFR (Cockcroft-Gault) 27.4 BUN/Creatinine Ratio 26 (6-20) Glucose Level 121 mg/dL (70-99) Calcium Level 9.9 mg/dL (8.5-10.1) Magnesium Level 2.3 mg/dL (1.8-2.4) Total Bilirubin 0.7 mg/dL (0.2-1.0) Aspartate Amino Transf (AST/SGOT) 33 U/L (15-37) Alanine Aminotransferase (ALT/SGPT) 27 U/L (14-59) Alkaline Phosphatase 99 U/L (46-116) Total Protein 7.9 g/dL (6.4-8.2) Albumin 3.5 g/dL (3.4-5.0) Albumin/Globulin Ratio 0.8 (1.0-1.7) Triglycerides Level 41 mg/dL (0-150) Cholesterol Level 150 mg/dL (0-200) LDL Cholesterol, Calculated 85 mg/dL (0-100) VLDL Cholesterol, Calculated 8 mg/dL (0-40) Non-HDL Cholesterol Calculated 93 mg/dL (0-129) HDL Cholesterol 57 mg/dL (40-60) Cholesterol/HDL Ratio 2.6 Test 12/28/18 04:20 Heparin Anti-Xa Act, Unfractionated 0.25 IU/mL (0.30-0.70) Laboratory Tests Test 12/28/18 04:20 Heparin Anti-Xa Act, Unfractionated 0.25 IU/mL (0.30-0.70) Medications Current Medications Heparin Sodium/ Dextrose 500 ml @ 0 mls/hr CONT PRN IV SEE I/O RECORD Last administered on 12/27/18at 22:27; Start 12/26/18 at 16:00 Heparin Sodium (Porcine) (Heparin Sodium) 1,750 unit PRN Q6HRS PRN IV FOR UFH LEVEL LESS THAN 0.2; Start 12/26/18 at 16:00 Atorvastatin Calcium (Lipitor) 40 mg QHS PO Last administered on 12/27/18 20:15; Start 12/26/18 at 21:00 Carvedilol (Coreg) 12.5 mg BIDWMEALS PO Last administered on 12/28/18 09:23; Start 12/26/18 at 17:00 Fluoxetine HCl (PROzac) 20 mg DAILY PO Last administered on 12/28/18 09:23; Start 12/27/18 at 09:00 Furosemide (Lasix) 80 mg DAILY PO Last administered on 12/27/18at 08:11; Start 12/27/18 at 09:00 Celecoxib (CeleBREX) 200 mg DAILY PO ; Start 12/27/18 at 09:00; Stop 12/27/18 at 09:00; Status DC Quetiapine Fumarate (SEROquel) 25 mg TID PO Last administered on 12/28/18at 09:24; Start 12/26/18 at 16:00 Spironolactone (Aldactone) 25 mg DAILY PO Last administered on 12/27/18at 08:11; Start 12/27/18 at 09:00 Albuterol/ Ipratropium (Duoneb) 3 ml RTQID NEB Last administered on 12/27/18at 20:25; Start 12/26/18 at 16:30 Budesonide (Pulmicort) 0.5 mg RTBID NEB Last administered on 12/27/18at 20:25; Start 12/26/18 at 20:00 Albuterol/ Ipratropium (Duoneb) 3 ml 1X ONCE NEB ; Start 12/26/18 at 16:30; Stop 12/26/18 at 16:31; Status UNV Furosemide (Lasix) 40 mg 1X ONCE IVP Last administered on 12/26/18at 18:46; Start 12/26/18 at 17:45; Stop 12/26/18 at 17:57; Status DC Aspirin (Ecotrin) 81 mg DAILYWBKFT PO Last administered on 12/28/18at 09:23; Start 12/27/18 at 08:00 Aspirin (Ecotrin) 325 mg 1X ONCE PO ; Start 12/26/18 at 17:45; Stop 12/26/18 at 17:57; Status DC Info (Anti-Coagulation Monitoring By Pharmacy) 1 each PRN DAILY PRN MC SEE COMMENTS Last administered on 12/27/18at 13:17; Start 12/27/18 at 13:15 Active Scripts Active Lasix (Furosemide) 80 Mg Tablet 1 Tab PO DAILY Reported Prilosec Otc (Omeprazole Magnesium) 20 Mg Tablet.dr 1 Tab PO DAILY Celecoxib 200 Mg Capsule 200 Mg PO DAILY Spironolactone 25 Mg Tablet 25 Mg PO DAILY Quetiapine Fumarate 25 Mg Tablet 25 Mg PO TID Fluoxetine Hcl 20 Mg Capsule 20 Mg PO DAILY Carvedilol 12.5 Mg Tablet 12.5 Mg PO BID Atorvastatin Calcium 40 Mg Tablet 40 Mg PO DAILY Vitals/I & O Vital Sign - Last 24 Hours 12/27/18 12/27/18 12/27/18 12/27/18 12:46 15:43 18:00 19:35 Pulse 76 B/P (MAP) 114/67 Pulse Ox 96 O2 Delivery Nasal Cannula Nasal Cannula Nasal Cannula O2 Flow Rate 5.0 5.0 5.0 12/27/18 12/27/18 12/27/18 12/28/18 19:36 20:24 23:05 02:47 Temp 98.4 98.2 98.0 98.4 98.2 98.0 Pulse 78 77 75 Resp 18 20 19 B/P (MAP) 96/57 (70) 113/74 (87) 107/67 (80) Pulse Ox 95 95 96 96 O2 Delivery Nasal Cannula Nasal Cannula Nasal Cannula Nasal Cannula O2 Flow Rate 2.0 5.0 2.0 2.0 12/28/18 12/28/18 12/28/18 12/28/18 07:24 08:00 09:23 10:54 Temp 98.2 98.0 98.2 98.0 Pulse 77 77 65 Resp 20 20 B/P (MAP) 113/74 (87) 113/74 110/59 (76) Pulse Ox 96 94 O2 Delivery Nasal Cannula Nasal Cannula Nasal Cannula O2 Flow Rate 2.0 4.0 2.0 Intake and Output 12/27/18 12/27/18 12/28/18 15:00 23:00 07:00 Intake Total 0 ml Output Total 400 ml 700 ml 200 ml Balance -400 ml -700 ml -200 ml SAM JUAN MD Dec 28, 2018 12:43
[2018-12-28] MEDS: IPRATRPIUM/ALBUTEROL 0.5/2.5MG 3 ML NEBU. NEB SCH ×3 (13:09→20:24)
[2018-12-28] MEDS: BUDESONIDE 0.5 MG/2 ML NEBU. NEB SCH ×2 (13:10→20:25)
[2018-12-28] MEDS: SPIRONOLACTONE 25 MG TABLET PO SCH (14:29)
[2018-12-28] MEDS: FUROSEMIDE 80 MG TABLET. PO SCH (14:30)
[2018-12-28 14:48] VITALS: BP 117/68
--- NOTE | 2018-12-28 14:56 | PDOC ---
SUBJECTIVE ROS States feeling good today OBJECTIVE Vital Signs Vital Signs Date Time Temp Pulse Resp B/P (MAP) Pulse Ox O2 Delivery O2 Flow Rate FiO2 12/28/18 14:48 98.0 87 20 117/68 (84) 91 Nasal Cannula 2.0 98.0 I & 0 Intake and Output 12/28/18 07:00 Intake Total 0 ml Output Total 1300 ml Balance -1300 ml Intake Oral 0 ml Output Urine Total 1300 ml PHYSICAL EXAM Physical Exam General: Alert, Oriented X3, Cooperative, No acute distress HEENT: Atraumatic, Mucous membr. moist/pink Neck Supple Lungs: CTA bilat Heart: Regular rate 3/6 systolic murmur Abdomen: Soft, No tenderness Extremities: No edema Skin: No Rash Neuro: Grossly n NO Heard DIAGNOSIS/ASSESSMENT Assessment & Plan CKD Stage 3 - stable renal function Seen by [facility] as inpatient in november 2018 She reported she was not aware of CKD Per records from PCP (Dr. Castro) - Pt was at baseline renal function(Cr 2.0) and has been prescribed Bactrim Multiple times for UTI by PCP Long Hx of NSAID use - Aleve/or Ibuprofen QD Per Home med list Celebrex , Furosemide and Aldactone Acute on chronic respiratory failure with sarcoidosis/severe pulmonary HTN/CHF Acute on chronic diastolic CHF/cor pulmonale HTN- BP stable Sarcoidosis COMMENT/RELEVANT DATA Meds Current Medications Medications (Trade) Dose Ordered Sig/Daphney Start Time Stop Time Status Last Admin Dose Admin Albuterol/ Ipratropium (Duoneb) 3 ml 1X ONCE 12/26/18 16:30 12/26/18 16:31 UNV Aspirin (Ecotrin) 325 mg 1X ONCE 12/26/18 17:45 12/26/18 17:57 DC Atorvastatin Calcium (Lipitor) 40 mg QHS 12/26/18 21:00 12/27/18 20:15 40 MG Budesonide (Pulmicort) 0.5 mg RTBID 12/26/18 20:00 12/28/18 13:10 0.5 MG Carvedilol (Coreg) 12.5 mg BIDWMEALS 12/26/18 17:00 12/28/18 09:23 12.5 MG Celecoxib (CeleBREX) 200 mg DAILY 12/27/18 09:00 12/27/18 09:00 DC Fluoxetine HCl (PROzac) 20 mg DAILY 12/27/18 09:00 12/28/18 09:23 20 MG Furosemide (Lasix) 40 mg 1X ONCE 12/26/18 17:45 12/26/18 17:57 DC 12/26/18 18:46 40 MG Heparin Sodium (Porcine) (Heparin Sodium) 1,750 unit PRN Q6HRS PRN 12/26/18 16:00 12/28/18 13:54 DC Heparin Sodium/ Dextrose 500 ml @ 0 mls/hr CONT PRN 12/26/18 16:00 12/28/18 13:53 DC 12/27/18 22:27 18.8 MLS/HR Info (Anti-Coagulation Monitoring By Pharmacy) 1 each PRN DAILY PRN 12/27/18 13:15 12/28/18 13:54 DC 12/27/18 13:17 1 EACH Quetiapine Fumarate (SEROquel) 25 mg TID 12/26/18 16:00 12/28/18 14:29 25 MG Spironolactone (Aldactone) 25 mg DAILY 12/27/18 09:00 12/28/18 14:29 25 MG Lab Laboratory Tests Test 12/28/18 04:20 12/28/18 12:15 Heparin Anti-Xa Act, Unfractionated 0.25 IU/mL (0.30-0.70) < 0.10 IU/mL (0.30-0.70) Troponin I Quantitative 0.520 ng/mL (0.000-0.055) Results All relevant outside records, renal labs, imaging studies, telemetry/EKG's were reviewed. SARWAT ZHOU MD Dec 28, 2018 14:56
[2018-12-28 19:20] VITALS: BP 118/65
[2018-12-28] MEDS ORDERED: MORPHINE SULFATE 2 MG/ML VIAL. IV PRN (19:30)
[2018-12-28] MEDS: ATORVASTATIN CALCIUM 40 MG TABLET. PO SCH (20:19)
[2018-12-28] MEDS: HYDROcodone/APAP 5/325MG 1 TAB TABLET PO PRN (20:20)
[2018-12-28 23:27] VITALS: BP 107/62
[2018-12-29 03:00] VITALS: BP 111/64
[2018-12-29 06:11] LABS: BASO # 0.1 x10^3/uL (0.0-0.2); BASO % 1 % (0-3); EOS # 0.7 x10^3/uL (0.0-0.7); EOS % 9 % (0-3); HEMATOCRIT 41.3 % (36.0-47.0); LYMPH # 1.9 x10^3/uL (1.0-4.8); LYMPH % 23 % (24-48); MEAN CORPUSCULAR HEMOGLOBIN 30 pg (25-35); MEAN CORPUSCULAR HGB CONC 34 g/dL (31-37); MEAN CORPUSCULAR VOLUME 88 fL (79-100); MONO # 0.6 x10^3/uL (0.0-1.1); MONO % 7 % (0-9); NEUT # 5.3 x10^3uL (1.8-7.7); NEUT % 62 % (31-73); PLATELET COUNT 166 x10^3/uL (140-400); RED BLOOD COUNT 4.72 x10^6/uL (3.50-5.40); RED CELL DISTRIBUTION WIDTH 16.7 % (11.5-14.5); WHITE BLOOD COUNT 8.6 x10^3/uL (4.0-11.0)
[2018-12-29 06:27] LABS: CALCIUM 9.6 mg/dL (8.5-10.1); CREATININE 1.8 mg/dL (0.6-1.0); GFR 27.4; POTASSIUM 4.4 mmol/L (3.5-5.1)
[2018-12-29 07:00] VITALS: BP 116/69
[2018-12-29] MEDS: IPRATRPIUM/ALBUTEROL 0.5/2.5MG 3 ML NEBU. NEB SCH ×4 (07:51→20:36)
[2018-12-29] MEDS: BUDESONIDE 0.5 MG/2 ML NEBU. NEB SCH ×2 (07:51→20:36)
--- NOTE | 2018-12-29 08:06 | PDOC ---
PULMONARY PROGRESS NOTES Subjective on 02 4lpm, has sob, slightly better, has occ cough, no pain Vitals Vital Signs Date Time Temp Pulse Resp B/P (MAP) Pulse Ox O2 Delivery O2 Flow Rate FiO2 12/29/18 07:54 93 Nasal Cannula 4.0 12/29/18 03:00 98.0 70 19 111/64 (80) 98.0 ROS: No Nausea, No Chest Pain, No Abdominal Pain, No Increase Cough HEENT: Other (nc at perrl) Lungs: Crackles Cardiovascular: S1, S2 Abdomen: Soft, Non-tender Neuro Exam: Alert Extremities: No Edema Skin: Warm Labs Laboratory Tests Test 12/27/18 11:15 12/28/18 04:20 12/28/18 12:15 12/29/18 05:35 Heparin Anti-Xa Act, Unfractionated 0.39 IU/mL (0.30-0.70) 0.25 IU/mL (0.30-0.70) < 0.10 IU/mL (0.30-0.70) Troponin I Quantitative 0.702 ng/mL (0.000-0.055) 0.520 ng/mL (0.000-0.055) White Blood Count 8.6 x10^3/uL (4.0-11.0) Red Blood Count 4.72 x10^6/uL (3.50-5.40) Hemoglobin 14.0 g/dL (12.0-15.5) Hematocrit 41.3 % (36.0-47.0) Mean Corpuscular Volume 88 fL (79-100) Mean Corpuscular Hemoglobin 30 pg (25-35) Mean Corpuscular Hemoglobin Concent 34 g/dL (31-37) Red Cell Distribution Width 16.7 % (11.5-14.5) Platelet Count 166 x10^3/uL (140-400) Neutrophils (%) (Auto) 62 % (31-73) Lymphocytes (%) (Auto) 23 % (24-48) Monocytes (%) (Auto) 7 % (0-9) Eosinophils (%) (Auto) 9 % (0-3) Basophils (%) (Auto) 1 % (0-3) Neutrophils # (Auto) 5.3 x10^3uL (1.8-7.7) Lymphocytes # (Auto) 1.9 x10^3/uL (1.0-4.8) Monocytes # (Auto) 0.6 x10^3/uL (0.0-1.1) Eosinophils # (Auto) 0.7 x10^3/uL (0.0-0.7) Basophils # (Auto) 0.1 x10^3/uL (0.0-0.2) Sodium Level 135 mmol/L (136-145) Potassium Level 4.4 mmol/L (3.5-5.1) Chloride Level 99 mmol/L (98-107) Carbon Dioxide Level 26 mmol/L (21-32) Anion Gap 10 (6-14) Blood Urea Nitrogen 50 mg/dL (7-20) Creatinine 1.8 mg/dL (0.6-1.0) Estimated GFR (Cockcroft-Gault) 27.4 Glucose Level 99 mg/dL (70-99) Calcium Level 9.6 mg/dL (8.5-10.1) Laboratory Tests Test 12/28/18 12:15 12/29/18 05:35 Heparin Anti-Xa Act, Unfractionated < 0.10 IU/mL (0.30-0.70) Troponin I Quantitative 0.520 ng/mL (0.000-0.055) White Blood Count 8.6 x10^3/uL (4.0-11.0) Red Blood Count 4.72 x10^6/uL (3.50-5.40) Hemoglobin 14.0 g/dL (12.0-15.5) Hematocrit 41.3 % (36.0-47.0) Mean Corpuscular Volume 88 fL (79-100) Mean Corpuscular Hemoglobin 30 pg (25-35) Mean Corpuscular Hemoglobin Concent 34 g/dL (31-37) Red Cell Distribution Width 16.7 % (11.5-14.5) Platelet Count 166 x10^3/uL (140-400) Neutrophils (%) (Auto) 62 % (31-73) Lymphocytes (%) (Auto) 23 % (24-48) Monocytes (%) (Auto) 7 % (0-9) Eosinophils (%) (Auto) 9 % (0-3) Basophils (%) (Auto) 1 % (0-3) Neutrophils # (Auto) 5.3 x10^3uL (1.8-7.7) Lymphocytes # (Auto) 1.9 x10^3/uL (1.0-4.8) Monocytes # (Auto) 0.6 x10^3/uL (0.0-1.1) Eosinophils # (Auto) 0.7 x10^3/uL (0.0-0.7) Basophils # (Auto) 0.1 x10^3/uL (0.0-0.2) Sodium Level 135 mmol/L (136-145) Potassium Level 4.4 mmol/L (3.5-5.1) Chloride Level 99 mmol/L (98-107) Carbon Dioxide Level 26 mmol/L (21-32) Anion Gap 10 (6-14) Blood Urea Nitrogen 50 mg/dL (7-20) Creatinine 1.8 mg/dL (0.6-1.0) Estimated GFR (Cockcroft-Gault) 27.4 Glucose Level 99 mg/dL (70-99) Calcium Level 9.6 mg/dL (8.5-10.1) Medications Active Scripts Medications Dose Route/Sig Max Daily Dose Days Date Category Prilosec Otc (Omeprazole Magnesium) 20 Mg Tablet.dr 1 Tab PO DAILY 12/26/18 Reported Lasix (Furosemide) 80 Mg Tablet 1 Tab PO DAILY 12/03/18 Rx Celecoxib 200 Mg Capsule 200 Mg PO DAILY 12/02/18 Reported Spironolactone 25 Mg Tablet 25 Mg PO DAILY 12/02/18 Reported Quetiapine Fumarate 25 Mg Tablet 25 Mg PO TID 12/02/18 Reported Fluoxetine Hcl 20 Mg Capsule 20 Mg PO DAILY 12/02/18 Reported Carvedilol 12.5 Mg Tablet 12.5 Mg PO BID 12/02/18 Reported Atorvastatin Calcium 40 Mg Tablet 40 Mg PO DAILY 12/02/18 Reported Impression . IMPRESSION: 1. Acute on chronic respiratory failure. 2. Abnormal x-ray compatible with fibrosis, interstitial lung disease, possibly related to sarcoid. 3. Severe secondary pulmonary hypertension. 4. Dizziness and near syncopal episode. 5. Coronary artery disease with chronic heart failure. 6. Hyperlipidemia. CT 12/27 IMPRESSION: 1. Diffuse prominent bilateral interstitial lung markings with reticular interstitial changes in the bilateral lungs likely diffuse pulmonary fibrosis probably idiopathic pulmonary fibrosis. Traction bronchiectatic changes identified in the bilateral lungs. 2. Moderate cardiomegaly. Plan . 02 titration ?psg as out pt ICS, BD 6 min walk and overnight 0x bf discharge PT NOT SEEN IN dr soto OFFICE SINCE 2014 SHE MAY HAVE IPF NOT SARCOID WILL DEFER TO DR BADILLO AT [facility] FOR MANAGEMENT OF SEC PULMONARY HTN NOT ABLE TO PREFORM RHC SEC TO KIDNEY INSUFFICIENCY discussed w rn, pt ASHISH URIBE MD Dec 29, 2018 08:06
[2018-12-29] MEDS: SPIRONOLACTONE 25 MG TABLET PO SCH (08:40)
[2018-12-29] MEDS: FLUoxetine HCL 20 MG CAPSULE PO SCH (08:40)
[2018-12-29] MEDS: QUEtiapine 25 MG TABLET. PO SCH ×3 (08:40→20:45)
[2018-12-29] MEDS: CARVEDILOL 12.5 MG TABLET. PO SCH ×2 (08:40→17:00)
[2018-12-29] MEDS: FUROSEMIDE 80 MG TABLET. PO SCH (08:40)
[2018-12-29] MEDS: ASPIRIN ENTERIC COATED 81 MG TABLET.DR. PO SCH (08:41)
--- NOTE | 2018-12-29 09:58 | SNU/HH DC ---
DISCHARGE WITH HOME HEALTH DISCHARGE INFORMATION: Discharge Date: Dec 29, 2018 Final Diagnosis: nstemi, pulm fibrosis Condition on Discharge: Stable CODE STATUS: Code Status: Full HOME HEALTH: Face to Face: I certify this patient is under my care and that I, or a nurse practitioner or physician's medical receptionist assistant working with me, had a face to face encounter that meets the physician face to face encounter requirements with this patient on 12/29 Medical Complications: COPD, Other (nstemi) RN For Eval/Treatment: Yes Physical Therapy For: Evalulation/Treatment Pt Meets Homebound Status: Fatigue w/ amb., Limited distance walking, Other: (hypoxia) POST DISCHARGE ORDERS: Activity Instructions for Disc: Activity as tolerated Weight Bearing Status after Di: Full weight bearing DIET AFTER DISCHARGE: Cardiac FOLLOW-UP: Follow up with: primary care, TREATMENT/EQUIPMENT ORDERS: Adaptive Equipment Issued: None CERTIFICATION STATEMENT: Certification Statement: Certification Statement: Based on the above finding, I certify that this patient is confined to the home and needs intermittent group home care, physical therapy and/or speech therapy, or continues to need occupational therapy.~ This patient is under my care, and I have initiated the establishment of the plan of care.~ This patient will be followed by myself or a community physician who will periodically review the plan of care. Home Meds Active Scripts Furosemide (LASIX) 80 Mg Tablet, 1 TAB PO DAILY for CHF, #10 TAB Prov:SAM JUAN MD 12/03/18 Reported Medications Omeprazole Magnesium (PRILOSEC OTC) 20 Mg Tablet.dr, 1 TAB PO DAILY for acid reflux, #30 TAB 3 Refills 12/26/18 Celecoxib (Celecoxib) 200 Mg Capsule, 200 MG PO DAILY for Sarcoidosis 12/02/18 Spironolactone (SPIRONOLACTONE) 25 Mg Tablet, 25 MG PO DAILY for diuretic; Blood Pressure 12/02/18 Quetiapine Fumarate (QUETIAPINE FUMARATE) 25 Mg Tablet, 25 MG PO TID for depression 12/02/18 Fluoxetine Hcl (FLUOXETINE HCL) 20 Mg Capsule, 20 MG PO DAILY for anxiety 12/02/18 Carvedilol (Carvedilol) 12.5 Mg Tablet, 12.5 MG PO BID for Blood Pressure 12/02/18 Atorvastatin Calcium (ATORVASTATIN CALCIUM) 40 Mg Tablet, 40 MG PO DAILY for Cholesterol 12/02/18 SAM JUAN MD Dec 29, 2018 09:58
--- NOTE | 2018-12-29 10:30 | PDOC3 ---
Discharge Summary Visit Information Date of Admission: Dec 28, 2018 Date of Discharge: Dec 29, 2018 Final Diagnosis acute hypoxia with acute CHF exacerbation subjective dyspnea on chronic hypercarbic failure, NSTEMI, type 2, demand, troponin peaked at 1.0, COPD, nebs, consult PULM depression./anxiety, stable CKD 3 weakness and debility, aquired Brief Hospital Course Allergies Allergies Coded Allergies Type Severity Reaction Last Updated Verified Penicillins Allergy Intermediate 12/03/18 Yes allopurinol Allergy Intermediate 12/03/18 Yes cephalexin Allergy Intermediate 12/03/18 Yes Vital Signs Vital Signs Date Time Temp Pulse Resp B/P (MAP) Pulse Ox O2 Delivery O2 Flow Rate FiO2 12/29/18 08:40 75 116/69 12/29/18 07:54 93 Nasal Cannula 4.0 12/29/18 07:00 97.6 12 97.6 Lab Results Laboratory Tests Test 12/27/18 11:15 12/28/18 04:20 12/28/18 12:15 12/29/18 05:35 Heparin Anti-Xa Act, Unfractionated 0.39 IU/mL (0.30-0.70) 0.25 IU/mL (0.30-0.70) < 0.10 IU/mL (0.30-0.70) Troponin I Quantitative 0.702 ng/mL (0.000-0.055) 0.520 ng/mL (0.000-0.055) White Blood Count 8.6 x10^3/uL (4.0-11.0) Red Blood Count 4.72 x10^6/uL (3.50-5.40) Hemoglobin 14.0 g/dL (12.0-15.5) Hematocrit 41.3 % (36.0-47.0) Mean Corpuscular Volume 88 fL (79-100) Mean Corpuscular Hemoglobin 30 pg (25-35) Mean Corpuscular Hemoglobin Concent 34 g/dL (31-37) Red Cell Distribution Width 16.7 % (11.5-14.5) Platelet Count 166 x10^3/uL (140-400) Neutrophils (%) (Auto) 62 % (31-73) Lymphocytes (%) (Auto) 23 % (24-48) Monocytes (%) (Auto) 7 % (0-9) Eosinophils (%) (Auto) 9 % (0-3) Basophils (%) (Auto) 1 % (0-3) Neutrophils # (Auto) 5.3 x10^3uL (1.8-7.7) Lymphocytes # (Auto) 1.9 x10^3/uL (1.0-4.8) Monocytes # (Auto) 0.6 x10^3/uL (0.0-1.1) Eosinophils # (Auto) 0.7 x10^3/uL (0.0-0.7) Basophils # (Auto) 0.1 x10^3/uL (0.0-0.2) Sodium Level 135 mmol/L (136-145) Potassium Level 4.4 mmol/L (3.5-5.1) Chloride Level 99 mmol/L (98-107) Carbon Dioxide Level 26 mmol/L (21-32) Anion Gap 10 (6-14) Blood Urea Nitrogen 50 mg/dL (7-20) Creatinine 1.8 mg/dL (0.6-1.0) Estimated GFR (Cockcroft-Gault) 27.4 Glucose Level 99 mg/dL (70-99) Calcium Level 9.6 mg/dL (8.5-10.1) Laboratory Tests Test 12/28/18 12:15 12/29/18 05:35 Heparin Anti-Xa Act, Unfractionated < 0.10 IU/mL (0.30-0.70) Troponin I Quantitative 0.520 ng/mL (0.000-0.055) White Blood Count 8.6 x10^3/uL (4.0-11.0) Red Blood Count 4.72 x10^6/uL (3.50-5.40) Hemoglobin 14.0 g/dL (12.0-15.5) Hematocrit 41.3 % (36.0-47.0) Mean Corpuscular Volume 88 fL (79-100) Mean Corpuscular Hemoglobin 30 pg (25-35) Mean Corpuscular Hemoglobin Concent 34 g/dL (31-37) Red Cell Distribution Width 16.7 % (11.5-14.5) Platelet Count 166 x10^3/uL (140-400) Neutrophils (%) (Auto) 62 % (31-73) Lymphocytes (%) (Auto) 23 % (24-48) Monocytes (%) (Auto) 7 % (0-9) Eosinophils (%) (Auto) 9 % (0-3) Basophils (%) (Auto) 1 % (0-3) Neutrophils # (Auto) 5.3 x10^3uL (1.8-7.7) Lymphocytes # (Auto) 1.9 x10^3/uL (1.0-4.8) Monocytes # (Auto) 0.6 x10^3/uL (0.0-1.1) Eosinophils # (Auto) 0.7 x10^3/uL (0.0-0.7) Basophils # (Auto) 0.1 x10^3/uL (0.0-0.2) Sodium Level 135 mmol/L (136-145) Potassium Level 4.4 mmol/L (3.5-5.1) Chloride Level 99 mmol/L (98-107) Carbon Dioxide Level 26 mmol/L (21-32) Anion Gap 10 (6-14) Blood Urea Nitrogen 50 mg/dL (7-20) Creatinine 1.8 mg/dL (0.6-1.0) Estimated GFR (Cockcroft-Gault) 27.4 Glucose Level 99 mg/dL (70-99) Calcium Level 9.6 mg/dL (8.5-10.1) Brief Hospital Course Ms. Woody is a 73 old admit for hypoxia, weakness, chest pain, NSTEMI 2, demand, peak troponi at 1.0 CV and pulm consulted, follow 6 min walk, hypoxia, likely her concentrator was poorly functioning at home, she reports to have replaced depression, weakness, anxiety, discussed need home health and f/u Discharge Information Condition at Discharge: Improved Follow Up: Weeks Disposition/Orders: D/C to Home w/ HH Scheduled Atorvastatin Calcium (Atorvastatin Calcium) 40 Mg Tablet, 40 MG PO DAILY for Cholesterol, (Reported) Entered as Reported by: EMELIA BARRON RN on 12/02/182024 Last Action: Continued on 12/26/181538 by SAM JUAN Carvedilol (Carvedilol) 12.5 Mg Tablet, 12.5 MG PO BID for Blood Pressure, (Reported) Entered as Reported by: EMELIA BARRON RN on 12/02/182024 Last Action: Continued on 12/26/181538 by SAM JUAN Fluoxetine Hcl (Fluoxetine Hcl) 20 Mg Capsule, 20 MG PO DAILY for anxiety, (Reported) Entered as Reported by: EMELIA BARRON RN on 12/02/182024 Last Action: Continued on 12/26/181538 by SAM JUAN Furosemide (Lasix) 80 Mg Tablet, 1 TAB PO DAILY for CHF, #10 Prescribed by: SAM JUAN on 12/03/18 1022 Last Action: Continued on 12/26/181538 by SAM JUAN Omeprazole Magnesium (Prilosec Otc) 20 Mg Tablet.dr, 1 TAB PO DAILY for acid reflux, #30 Ref 3 (Reported) Entered as Reported by: AMANDA MCHUGH on 12/26/181851 Last Action: New Order on 12/26/181851 by AMANDA MCHUGH Quetiapine Fumarate (Quetiapine Fumarate) 25 Mg Tablet, 25 MG PO TID for depression, (Reported) Entered as Reported by: EMELIA BARRON RN on 12/02/182024 Last Action: Converted on 12/26/181538 by SAM JUAN Spironolactone (Spironolactone) 25 Mg Tablet, 25 MG PO DAILY for diuretic; Blood Pressure, (Reported) Entered as Reported by: EMELIA BARRON RN on 12/02/182024 Last Action: Converted on 12/26/181538 by SAM JUAN Discontinued Medications Celecoxib (Celecoxib) 200 Mg Capsule, 200 MG PO DAILY for Sarcoidosis, (Report ed) Entered as Reported by: EMELIA BARRON RN on 12/02/182024 Last Action: Converted on 12/26/181538 by SAM JUAN Patient Instructions Patient Instructions > 30 min face to face SAM JUAN MD Dec 29, 2018 10:30
[2018-12-29 11:00] VITALS: BP 110/66
[2018-12-29] MEDS: HYDROcodone/APAP 5/325MG 1 TAB TABLET PO PRN ×2 (12:23→20:45)
--- NOTE | 2018-12-29 12:42 | PDOC ---
Renal-Progress Notes Subjective Notes Notes NONE History of Present Illness Hx of present illness STABLE Vitals Vitals Vital Signs Date Time Temp Pulse Resp B/P (MAP) Pulse Ox O2 Delivery O2 Flow Rate FiO2 12/29/18 12:23 94 Nasal Cannula 4.0 12/29/18 11:00 98.1 71 16 110/66 (81) 98.1 Weight Weight [ ] I.O. Intake and Output Intake and Output 12/29/18 07:00 Intake Total 1300 ml Output Total 2150 ml Balance -850 ml Intake Oral 1300 ml Output Urine Total 2150 ml Labs Labs Laboratory Tests Test 12/29/18 05:35 White Blood Count 8.6 x10^3/uL (4.0-11.0) Red Blood Count 4.72 x10^6/uL (3.50-5.40) Hemoglobin 14.0 g/dL (12.0-15.5) Hematocrit 41.3 % (36.0-47.0) Mean Corpuscular Volume 88 fL (79-100) Mean Corpuscular Hemoglobin 30 pg (25-35) Mean Corpuscular Hemoglobin Concent 34 g/dL (31-37) Red Cell Distribution Width 16.7 % (11.5-14.5) Platelet Count 166 x10^3/uL (140-400) Neutrophils (%) (Auto) 62 % (31-73) Lymphocytes (%) (Auto) 23 % (24-48) Monocytes (%) (Auto) 7 % (0-9) Eosinophils (%) (Auto) 9 % (0-3) Basophils (%) (Auto) 1 % (0-3) Neutrophils # (Auto) 5.3 x10^3uL (1.8-7.7) Lymphocytes # (Auto) 1.9 x10^3/uL (1.0-4.8) Monocytes # (Auto) 0.6 x10^3/uL (0.0-1.1) Eosinophils # (Auto) 0.7 x10^3/uL (0.0-0.7) Basophils # (Auto) 0.1 x10^3/uL (0.0-0.2) Sodium Level 135 mmol/L (136-145) Potassium Level 4.4 mmol/L (3.5-5.1) Chloride Level 99 mmol/L (98-107) Carbon Dioxide Level 26 mmol/L (21-32) Anion Gap 10 (6-14) Blood Urea Nitrogen 50 mg/dL (7-20) Creatinine 1.8 mg/dL (0.6-1.0) Estimated GFR (Cockcroft-Gault) 27.4 Glucose Level 99 mg/dL (70-99) Calcium Level 9.6 mg/dL (8.5-10.1) Review of Systems Constitutional: yes: alert, oriented Ears/Nose/Throat: Yes: no symptom reported Eyes: Yes: no symptom reported Pulmonary: Yes no symptom reported Cardiovascular: Yes no symptom reported Gastrointestional: Yes: constipation Genitourinary: Yes: no symptom reported Musculoskeletal: Yes: muscle stiffness Psychiatric/Neurological: Yes: no symptom reported Endocrine: Yes: no symptom reported Physical Exam General Appearance: no apparent distress Skin: warm Respiratory: decreased breath sounds Heart: S1S2 Abdomen: soft, bowel sounds present Extremities: pulses present Neurology: alert, oriented, follow commands Assessment Assessment IMP CKD STAGE 3 WITH CR AT BASELINE OF 1.8 CHF-DIASTOLIC ACUTE ON CHRONIC-COMPENSATED HTN-IMPROVED CONTROL HX OF SARCOID PLAN CONT WITH DIURESIS D/C PLANS NOTED PT WILL FOLLOW UP IN OFFICE WHIT WRIGHT MD Dec 29, 2018 12:41
[2018-12-29 15:00] VITALS: BP 89/65
[2018-12-29 19:43] VITALS: BP 102/64
[2018-12-29] MEDS: ATORVASTATIN CALCIUM 40 MG TABLET. PO SCH (20:45)
[2018-12-29 22:42] VITALS: BP 130/75
--- NOTE | 2018-12-30 00:48 | CONS ---
DATE OF CONSULTATION: 12/29/2018 ATTENDING PHYSICIAN: Dr. Lester. The patient was seen at the request of Dr. Lester for rehab evaluation. HISTORY OF PRESENT ILLNESS: This is a 73-year-old female patient with known coronary artery disease, congestive heart failure, hypertension, hyperlipidemia, gastroesophageal reflux disease, anxiety, depression, osteoarthritis and chronic obstructive pulmonary disease, never smoked. The patient was found with pulmonary fibrosis with [id number]-[id number] respiratory failure, abnormal chest x-ray compatible with fibrosis, interstitial lung disease and possibly related to sarcoidosis severe, secondary pulmonary hypertension. The patient had been using oxygen initially at 2 liters, right now at 3 liters per minute at home for the last 1-1/2 years. She lives with her son who works. She usually walks using a roller walker. She had 4 stairs to manage to enter the house with railing. The patient is status post right carpal tunnel release, tubal ligation, tonsillectomy, hysterectomy, known allergic to PENICILLIN, ALLOPURINOL and CEPHALEXIN. FAMILY history of heart disease and hypertension. 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 The patient admits pain all over her joints and also neck and back, specifically right hand. PHYSICAL EXAMINATION: Today revealed an elderly female. She is alert, oriented to time, place, person and circumstance and follows commands appropriately, moves all 4 extremities voluntarily where she had 4+/5 grade muscle strength. Deep tendon reflexes are 1 to 2+ and symmetrical and she had equal perception of touch and pinprick sensation bilaterally. She had muscle atrophy involving right thenar eminence muscles. The patient had crepitus on range of motion of her knee joints and she had some arthritic changes in her right hand. She had diffuse tenderness to palpation over cervical paraspinal muscles extending over to posterior shoulder girdle muscles, over the mid thoracic paraspinal muscles and also over lumbar paraspinal muscles and sacroiliac joint area. Straight leg raising test is negative bilaterally. She is independent with bed mobility and transfers and she has been walking using a roller walker slowly. She gets tired easily and she also gets short of breath easily that is limiting her activity. Her skin is intact at this time. ASSESSMENT: An elderly female with [id number] respiratory failure secondary to fibrosis, interstitial lung disease and possible sarcoidosis, also coronary artery disease, hypertension, congestive heart failure, degenerative joint disease and degenerative disk disease involving cervical and lumbar vertebrae without any clinical evidence of ongoing cervical or lumbar radiculopathy, degenerative joint disease of the extremity joints with pain. RECOMMENDATION: I have advised her to use paraffin bath to her right hand followed by stretching exercises and use physical modalities and stretching exercise to her neck and lower back and I have reviewed with her appropriate body mechanics. She is eager to go home. She also had overgrown toenails. If she is still here on Monday, to ask Podiatry to trim her toenails. Dr. Lester, I appreciate asking me to participate in the care of this interesting patient. Home when medically stable with home health followup. CHIKIS CACERES MD DR: WILLIAM/nts JOB#: [id number] / [id number]
[2018-12-30 03:13] VITALS: BP 103/66
[2018-12-30 07:00] VITALS: BP 114/67
[2018-12-30] MEDS: IPRATRPIUM/ALBUTEROL 0.5/2.5MG 3 ML NEBU. NEB SCH ×3 (07:40→16:18)
[2018-12-30] MEDS: BUDESONIDE 0.5 MG/2 ML NEBU. NEB SCH (07:40)
--- NOTE | 2018-12-30 07:48 | PDOC ---
PULMONARY PROGRESS NOTES Subjective on 02 4lpm, has sob, slightly better, has occ cough, no pain Vitals Vital Signs Date Time Temp Pulse Resp B/P (MAP) Pulse Ox O2 Delivery O2 Flow Rate FiO2 12/30/18 07:42 94 Nasal Cannula 4.0 12/30/18 03:13 97.8 72 16 103/66 (78) 97.8 ROS: No Nausea, No Chest Pain, No Abdominal Pain, No Increase Cough HEENT: Other (nc at perrl) Lungs: Crackles Cardiovascular: S1, S2 Abdomen: Soft, Non-tender Neuro Exam: Alert Extremities: No Edema Skin: Warm Labs Laboratory Tests Test 12/28/18 12:15 12/29/18 05:35 Heparin Anti-Xa Act, Unfractionated < 0.10 IU/mL (0.30-0.70) Troponin I Quantitative 0.520 ng/mL (0.000-0.055) White Blood Count 8.6 x10^3/uL (4.0-11.0) Red Blood Count 4.72 x10^6/uL (3.50-5.40) Hemoglobin 14.0 g/dL (12.0-15.5) Hematocrit 41.3 % (36.0-47.0) Mean Corpuscular Volume 88 fL (79-100) Mean Corpuscular Hemoglobin 30 pg (25-35) Mean Corpuscular Hemoglobin Concent 34 g/dL (31-37) Red Cell Distribution Width 16.7 % (11.5-14.5) Platelet Count 166 x10^3/uL (140-400) Neutrophils (%) (Auto) 62 % (31-73) Lymphocytes (%) (Auto) 23 % (24-48) Monocytes (%) (Auto) 7 % (0-9) Eosinophils (%) (Auto) 9 % (0-3) Basophils (%) (Auto) 1 % (0-3) Neutrophils # (Auto) 5.3 x10^3uL (1.8-7.7) Lymphocytes # (Auto) 1.9 x10^3/uL (1.0-4.8) Monocytes # (Auto) 0.6 x10^3/uL (0.0-1.1) Eosinophils # (Auto) 0.7 x10^3/uL (0.0-0.7) Basophils # (Auto) 0.1 x10^3/uL (0.0-0.2) Sodium Level 135 mmol/L (136-145) Potassium Level 4.4 mmol/L (3.5-5.1) Chloride Level 99 mmol/L (98-107) Carbon Dioxide Level 26 mmol/L (21-32) Anion Gap 10 (6-14) Blood Urea Nitrogen 50 mg/dL (7-20) Creatinine 1.8 mg/dL (0.6-1.0) Estimated GFR (Cockcroft-Gault) 27.4 Glucose Level 99 mg/dL (70-99) Calcium Level 9.6 mg/dL (8.5-10.1) Medications Active Scripts Medications Dose Route/Sig Max Daily Dose Days Date Category Prilosec Otc (Omeprazole Magnesium) 20 Mg Tablet.dr 1 Tab PO DAILY 12/26/18 Reported Lasix (Furosemide) 80 Mg Tablet 1 Tab PO DAILY 12/03/18 Rx Celecoxib 200 Mg Capsule 200 Mg PO DAILY 12/02/18 Reported Spironolactone 25 Mg Tablet 25 Mg PO DAILY 12/02/18 Reported Quetiapine Fumarate 25 Mg Tablet 25 Mg PO TID 12/02/18 Reported Fluoxetine Hcl 20 Mg Capsule 20 Mg PO DAILY 12/02/18 Reported Carvedilol 12.5 Mg Tablet 12.5 Mg PO BID 12/02/18 Reported Atorvastatin Calcium 40 Mg Tablet 40 Mg PO DAILY 12/02/18 Reported Impression . IMPRESSION: 1. Acute on chronic respiratory failure. 2. Abnormal x-ray compatible with fibrosis, interstitial lung disease, possibly related to sarcoid. 3. Severe secondary pulmonary hypertension. 4. Dizziness and near syncopal episode. 5. Coronary artery disease with chronic heart failure. 6. Hyperlipidemia. CT 12/27 IMPRESSION: 1. Diffuse prominent bilateral interstitial lung markings with reticular interstitial changes in the bilateral lungs likely diffuse pulmonary fibrosis probably idiopathic pulmonary fibrosis. Traction bronchiectatic changes identified in the bilateral lungs. 2. Moderate cardiomegaly. Plan . 02 titration overnight 0x, poor tracing, need 02 at least 5 lpm during sleep, 6 min at dc ?psg as out pt if not done ICS, BD PT NOT SEEN by dr soto in OFFICE SINCE 2014 SHE MAY HAVE IPF NOT SARCOID, ? candidate for antifibrotic agents WILL DEFER TO DR BADILLO AT [facility]NAGEMENT OF SEC PULMONARY HTN NOT ABLE TO PREFORM RHC SEC TO KIDNEY INSUFFICIENCY discussed w rn, pt ASHISH URIBE MD Dec 30, 2018 07:48
[2018-12-30] MEDS: SPIRONOLACTONE 25 MG TABLET PO SCH (08:14)
[2018-12-30] MEDS: QUEtiapine 25 MG TABLET. PO SCH ×2 (08:14→14:05)
[2018-12-30] MEDS: ASPIRIN ENTERIC COATED 81 MG TABLET.DR. PO SCH (08:14)
[2018-12-30] MEDS: CARVEDILOL 12.5 MG TABLET. PO SCH (08:15)
[2018-12-30] MEDS: FUROSEMIDE 80 MG TABLET. PO SCH (08:15)
[2018-12-30] MEDS: FLUoxetine HCL 20 MG CAPSULE PO SCH (08:15)
--- NOTE | 2018-12-30 10:03 | PDOC ---
PROGRESS NOTES Chief Complaint Chief Complaint LATE ENTRY, pt seen 12/29, tried to DC, poor results on hypoxia with 6 min walk acute hypoxia with acute CHF exacerbation subjective dyspnea on chronic hypercarbic failure, NSTEMI, type 2, demand, troponin peaked at 1.0, COPD, nebs, consult PULM depression./anxiety, stable CKD 3 weakness and debility, aquired History of Present Illness History of Present Illness CT scan CV and PULm following feels better no event start PT and OT Vitals Vitals Vital Signs Date Time Temp Pulse Resp B/P (MAP) Pulse Ox O2 Delivery O2 Flow Rate FiO2 12/30/18 08:15 73 114/67 12/30/18 07:42 94 Nasal Cannula 4.0 12/30/18 07:00 97.7 12 97.7 Physical Exam General: Alert, Oriented X3, Cooperative, No acute distress Heart: Regular rate (SR with RBBB), Other (3/6 systolic murmur to LLS border) Lungs: Crackles Abdomen: Soft, No tenderness Extremities: No cyanosis, No edema Skin: No breakdown, No significant lesion Comment Review of Relevant I have reviewed the following items richard (where applicable) has been applied. Labs Laboratory Tests Test 12/28/18 12:15 12/29/18 05:35 Heparin Anti-Xa Act, Unfractionated < 0.10 IU/mL (0.30-0.70) Troponin I Quantitative 0.520 ng/mL (0.000-0.055) White Blood Count 8.6 x10^3/uL (4.0-11.0) Red Blood Count 4.72 x10^6/uL (3.50-5.40) Hemoglobin 14.0 g/dL (12.0-15.5) Hematocrit 41.3 % (36.0-47.0) Mean Corpuscular Volume 88 fL (79-100) Mean Corpuscular Hemoglobin 30 pg (25-35) Mean Corpuscular Hemoglobin Concent 34 g/dL (31-37) Red Cell Distribution Width 16.7 % (11.5-14.5) Platelet Count 166 x10^3/uL (140-400) Neutrophils (%) (Auto) 62 % (31-73) Lymphocytes (%) (Auto) 23 % (24-48) Monocytes (%) (Auto) 7 % (0-9) Eosinophils (%) (Auto) 9 % (0-3) Basophils (%) (Auto) 1 % (0-3) Neutrophils # (Auto) 5.3 x10^3uL (1.8-7.7) Lymphocytes # (Auto) 1.9 x10^3/uL (1.0-4.8) Monocytes # (Auto) 0.6 x10^3/uL (0.0-1.1) Eosinophils # (Auto) 0.7 x10^3/uL (0.0-0.7) Basophils # (Auto) 0.1 x10^3/uL (0.0-0.2) Sodium Level 135 mmol/L (136-145) Potassium Level 4.4 mmol/L (3.5-5.1) Chloride Level 99 mmol/L (98-107) Carbon Dioxide Level 26 mmol/L (21-32) Anion Gap 10 (6-14) Blood Urea Nitrogen 50 mg/dL (7-20) Creatinine 1.8 mg/dL (0.6-1.0) Estimated GFR (Cockcroft-Gault) 27.4 Glucose Level 99 mg/dL (70-99) Calcium Level 9.6 mg/dL (8.5-10.1) Medications Current Medications Heparin Sodium/ Dextrose 500 ml @ 0 mls/hr CONT PRN IV SEE I/O RECORD Last administered on 12/27/18at 22:27; Start 12/26/18 at 16:00; Stop 12/28/18 at 13:53; Status DC Heparin Sodium (Porcine) (Heparin Sodium) 1,750 unit PRN Q6HRS PRN IV FOR UFH LEVEL LESS THAN 0.2; Start 12/26/18 at 16:00; Stop 12/28/18 at 13:54; Status DC Atorvastatin Calcium (Lipitor) 40 mg QHS PO Last administered on 12/29/18at 20:45; Start 12/26/18 at 21:00 Carvedilol (Coreg) 12.5 mg BIDWMEALS PO Last administered on 12/30/18at 08:15; Start 12/26/18 at 17:00 Fluoxetine HCl (PROzac) 20 mg DAILY PO Last administered on 12/30/18at 08:15; Start 12/27/18 at 09:00 Furosemide (Lasix) 80 mg DAILY PO Last administered on 12/30/18at 08:15; Start 12/27/18 at 09:00 Celecoxib (CeleBREX) 200 mg DAILY PO ; Start 12/27/18 at 09:00; Stop 12/27/18 at 09:00; Status DC Quetiapine Fumarate (SEROquel) 25 mg TID PO Last administered on 12/30/18at 08:14; Start 12/26/18 at 16:00 Spironolactone (Aldactone) 25 mg DAILY PO Last administered on 12/30/18 08:14; Start 12/27/18 at 09:00 Albuterol/ Ipratropium (Duoneb) 3 ml RTQID NEB Last administered on 12/30/18at 07:40; Start 12/26/18 at 16:30 Budesonide (Pulmicort) 0.5 mg RTBID NEB Last administered on 12/30/18at 07:40; Start 12/26/18 at 20:00 Albuterol/ Ipratropium (Duoneb) 3 ml 1X ONCE NEB ; Start 12/26/18 at 16:30; Stop 12/26/18 at 16:31; Status UNV Furosemide (Lasix) 40 mg 1X ONCE IVP Last administered on 12/26/18at 18:46; Start 12/26/18 at 17:45; Stop 12/26/18 at 17:57; Status DC Aspirin (Ecotrin) 81 mg DAILYWBKFT PO Last administered on 12/30/18at 08:14; Start 12/27/18 at 08:00 Aspirin (Ecotrin) 325 mg 1X ONCE PO ; Start 12/26/18 at 17:45; Stop 12/26/18 at 17:57; Status DC Info (Anti-Coagulation Monitoring By Pharmacy) 1 each PRN DAILY PRN MC SEE COMMENTS Last administered on 12/27/18at 13:17; Start 12/27/18 at 13:15; Stop 12/28/18 at 13:54; Status DC Acetaminophen/ Hydrocodone Bitart (Lortab 5/325) 1 tab PRN Q4HRS PRN PO PAIN Last administered on 12/29/18at 20:45; Start 12/28/18 at 19:30 Morphine Sulfate (Morphine Sulfate) 2 mg PRN Q2HR PRN IV PAIN; Start 12/28/18 at 19:30 Active Scripts Active Lasix (Furosemide) 80 Mg Tablet 1 Tab PO DAILY Reported Prilosec Otc (Omeprazole Magnesium) 20 Mg Tablet.dr 1 Tab PO DAILY Spironolactone 25 Mg Tablet 25 Mg PO DAILY Quetiapine Fumarate 25 Mg Tablet 25 Mg PO TID Fluoxetine Hcl 20 Mg Capsule 20 Mg PO DAILY Carvedilol 12.5 Mg Tablet 12.5 Mg PO BID Atorvastatin Calcium 40 Mg Tablet 40 Mg PO DAILY Vitals/I & O Vital Sign - Last 24 Hours 12/29/18 12/29/18 12/29/18 12/29/18 11:00 11:42 12:23 13:30 Temp 98.1 98.1 Pulse 71 Resp 16 B/P (MAP) 110/66 (81) Pulse Ox 89 92 94 O2 Delivery Nasal Cannula Nasal Cannula Nasal Cannula Nasal Cannula O2 Flow Rate 4.0 4.0 4.0 12/29/18 12/29/18 12/29/18 12/29/18 15:00 15:26 17:00 19:29 Temp 97.9 97.9 Pulse 77 77 Resp 12 B/P (MAP) 89/65 (73) 89/65 Pulse Ox 90 O2 Delivery Nasal Cannula Nasal Cannula Nasal Cannula O2 Flow Rate 4.0 4.0 4.0 12/29/18 12/29/18 12/29/18 12/29/18 19:43 20:37 20:45 22:02 Temp 98.1 98.1 Pulse 80 Resp 12 B/P (MAP) 102/64 (77) Pulse Ox 91 94 O2 Delivery Nasal Cannula Nasal Cannula Nasal Cannula O2 Flow Rate 4.0 4.0 4.0 4.0 12/29/18 12/30/18 12/30/18 12/30/18 22:42 03:13 07:00 07:42 Temp 97.8 97.8 97.7 97.8 97.8 97.7 Pulse 81 72 73 Resp 16 12 B/P (MAP) 130/75 (93) 103/66 (78) 114/67 (83) Pulse Ox 90 91 89 94 O2 Delivery Nasal Cannula Nasal Cannula Nasal Cannula Nasal Cannula O2 Flow Rate 4.0 4.0 4.0 4.0 12/30/18 08:15 Pulse 73 B/P (MAP) 114/67 Intake and Output 12/29/18 12/29/18 12/30/18 14:59 22:59 06:59 Intake Total 360 ml 610 ml 100 ml Output Total 1200 ml 700 ml 750 ml Balance -840 ml -90 ml -650 ml SAM JUAN MD Dec 30, 2018 10:03
[2018-12-30] MEDS ORDERED: CARV3.12 PO (10:04)
[2018-12-30 10:58] VITALS: BP 116/71
--- NOTE | 2018-12-30 11:48 | PDOC ---
Renal-Progress Notes Subjective Notes Notes NO NEW COMPLAINTS History of Present Illness Hx of present illness STABLE Vitals Vitals Vital Signs Date Time Temp Pulse Resp B/P (MAP) Pulse Ox O2 Delivery O2 Flow Rate FiO2 12/30/18 10:58 97.5 70 20 116/71 (86) 90 Nasal Cannula 4.0 97.5 Weight Weight [ ] I.O. Intake and Output Intake and Output 12/30/18 07:00 Intake Total 1070 ml Output Total 2650 ml Balance -1580 ml Intake Oral 1070 ml Output Urine Total 2650 ml # Voids 1 Review of Systems Constitutional: yes: alert, oriented Ears/Nose/Throat: Yes: no symptom reported Eyes: Yes: no symptom reported Pulmonary: Yes no symptom reported Cardiovascular: Yes no symptom reported Gastrointestional: Yes: constipation Genitourinary: Yes: no symptom reported Musculoskeletal: Yes: muscle stiffness Psychiatric/Neurological: Yes: no symptom reported Endocrine: Yes: no symptom reported Physical Exam General Appearance: no apparent distress Skin: warm Respiratory: decreased breath sounds Heart: S1S2 Abdomen: soft, bowel sounds present Extremities: pulses present Neurology: alert, oriented, follow commands Assessment Assessment IMP CKD STAGE 3 WITH CR AT BASELINE OF 1.8 CHF-DIASTOLIC ACUTE ON CHRONIC-COMPENSATED HTN-IMPROVED CONTROL HX OF SARCOID PULMONARY FIBROSIS PLAN CONT WITH ALDACTONE AND LASIX PT WILL FOLLOW UP IN OFFICE UPON D/C WHIT WRIGHT MD Dec 30, 2018 11:48
[2018-12-30] MEDS: HYDROcodone/APAP 5/325MG 1 TAB TABLET PO PRN (14:09)
[2018-12-30 15:00] VITALS: BP 90/53
--- NOTE | 2018-12-30 17:06 | NUR ---
Discharge Note: KWASI PARRISH [address] Discharge instructions and discharge home medications reviewed with Patient and a copy given. All questions have been answered and understanding verbalized. The following instructions and handouts were given: new medications, follow up with her physicians, hypo/hypertension, heart failure, diet, new O2 dosages, and contact with [facility]. Discontinued lines and drains: IV removed, no lines present. Patient discharged to Home or Self Care patent left with her son, Tommy, in his vehicle. taken out by wheelchair. contacted [facility] with new O2 requirements. Ildefonso will follow up with family naila. I have called him on his cell-phone and left a message. I have her son's cell number for him.
== END 2018-12-30 16:15 | disposition home or self-care (01) | DRG 280 ==
LOC: 2 SOUTH 13:14
PROVIDERS: ADMIT Internal Medicine; ATTEND Internal Medicine
DX: I13.0 Hypertensive heart and chronic kidney disease with heart failure and stage 1 through stage 4 chronic kidney disease, or unspecified chronic kidney disease (principal); I21.A1 Myocardial infarction type 2; I50.33 Acute on chronic diastolic (congestive) heart failure; J96.21 Acute and chronic respiratory failure with hypoxia; J96.22 Acute and chronic respiratory failure with hypercapnia; J44.9 Chronic obstructive pulmonary disease, unspecified; D86.9 Sarcoidosis, unspecified; E78.5 Hyperlipidemia, unspecified; F32.9 Major depressive disorder, single episode, unspecified; F41.9 Anxiety disorder, unspecified; I25.10 Atherosclerotic heart disease of native coronary artery without angina pectoris; I27.29 Other secondary pulmonary hypertension; I45.10 Unspecified right bundle-branch block; I95.1 Orthostatic hypotension; K21.9 Gastro-esophageal reflux disease without esophagitis; M19.90 Unspecified osteoarthritis, unspecified site; M50.30 Other cervical disc degeneration, unspecified cervical region; M51.36 Other intervertebral disc degeneration, lumbar region; N18.3 Chronic kidney disease, stage 3 (moderate); Z82.49 Family history of ischemic heart disease and other diseases of the circulatory system; Z88.0 Allergy status to penicillin; Z90.710 Acquired absence of both cervix and uterus; Z99.81 Dependence on supplemental oxygen; Z98.51 Tubal ligation status; Z79.899 Other long term (current) drug therapy; Z87.891 Personal history of nicotine dependence; Z88.1 Allergy status to other antibiotic agents; Z88.8 Allergy status to other drugs, medicaments and biological substances
CPT/HCPCS: 36415; 71250; 80048; 80053; 80061; 83735; 83880; 84484; 85025; 85520; 93005; 93970; 94618; 94640; 94760; 94799; J1940; J7620; J7626; 97530